=== PATIENT | female | born 1975 | race Two or more races ===

== ENCOUNTER 2017-01-24 08:15 | Emergency (ER) | payer OTHER ==
[~2017-01-24] VITALS: Ht 165.1 cm; Wt 71.2 kg
[2017-01-24 08:21] VITALS: BP 177/87; PULSE 75; RESP 16; TEMP 98.2; O2SAT 99
--- NOTE | 2017-01-24 08:25 | NUR ---
ambulated to bed 8
--- NOTE | 2017-01-24 08:41 | NUR ---
ER at bedside examining patient.
--- NOTE | 2017-01-24 08:41 | NUR ---
c/o elevated blood pressure,vomiting,headache since this morning, awake,alert oriented x4,no neuro deficit noted.
[2017-01-24] MEDS ORDERED: PROCHLORPERAZINE EDISYLATE 10 MG/2 ML VIAL IVP ONE (08:45)
[2017-01-24] MEDS ORDERED: ONDANSETRON HCL 4 MG/2 ML VIAL IVP ONE (08:45)
[2017-01-24] MEDS ORDERED: KETOROLAC TROMETHAMINE 30 MG VIAL IVP ONE (08:45)
[2017-01-24] MEDS ORDERED: cloNIDine HCL 0.1 MG TABLET PO ONE (08:45)
--- NOTE | 2017-01-24 08:45 | NUR ---
# 20 gauge angiocath placed to RAC. Use of asceptic technique. Opsite placed over site. Blood return noted. Flushed with 10 cc of normal saline. No evidence of infiltration noted. Patient tolerated well.
[2017-01-24 08:50] LABS: BILIRUBIN,URINE NEGATIVE (NEGATIVE); CLARITY/URINE CLEAR (CLEAR); COLOR,URINE YELLOW (YELLOW); GLUCOSE,URINE TRACE (NEGATIVE); KETONES,URINE NEGATIVE (NEGATIVE); LEUKOCYTE ESTERASE ,URINE NEGATIVE (NEGATIVE); NITRITE, URINE NEGATIVE (NEGATIVE); PROTEIN URINE 3+ (NEGATIVE); UROBILINOGEN,URINE 0.2 (0.2-1.0)
[2017-01-24 08:56] LABS: BLOOD, URINE TRACE (NEGATIVE)
[2017-01-24 08:58] LABS: BACTERIA,URINE FEW /HPF (None Seen); MUCUS,URINE None Seen /LPF (None Seen); RBC,URINE 0-3 /HPF (0-3); WBC,URINE 0-3 /HPF (0-3)
[2017-01-24 09:41] LABS: BASOPHILS # (AUTO) 0.1 K/uL (0.0-0.2); BASOPHILS % (AUTO) 0.4 % (0.0-2.0); EOSINOPHILS # (AUTO) 0.1 K/uL (0.0-0.4); EOSINOPHILS % (AUTO) 0.9 % (0.0-4.0); HEMATOCRIT 32.7 % (36-48); HEMOGLOBIN 10.6 g/dL (12.0-16.0); LYMPHOCYTES # (AUTO) 1.8 K/uL (1.0-5.5); LYMPHOCYTES % (AUTO) 13.7 % (20.5-51.5); MEAN CORPUSCULAR HEMOGLOBIN 21 pg (27-31); MEAN CORPUSCULAR HGB CONC 32 % (32-36); MEAN CORPUSCULAR VOLUME 65 fL (79.0-98.0); MONOCYTES # (AUTO) 0.7 K/uL (0.0-1.0); MONOCYTES % (AUTO) 5.5 % (1.7-9.3); NEUTROPHILS # (AUTO) 10.7 K/uL (1.8-7.7); NEUTROPHILS % (AUTO) 79.5 % (40.0-70.0); PLATELET COUNT (AUTO) 230 K/uL (130-430); RED BLOOD CELL COUNT(AUTO) 5.02 MIL/uL (4.2-6.2); RED CELL DISTRIBUTION WIDTH 17.5 % (9.0-15.0); WHITE BLOOD COUNT (AUTO) 13.4 K/uL (4.8-10.8)
[2017-01-24 10:24] LABS: ANION GAP 10 (5-15); CALCIUM 8.4 mg/dL (8.4-11.0); CHLORIDE 100 mmol/L (98-107); GLUCOSE 214 mg/dL (70-99); SODIUM SERUM 138 mmol/L (136-145); UREA NITROGEN, BLOOD 17 mg/dL (8-21)
[2017-01-24 10:29] LABS: GFR AFRICAN AMERICAN 79 mL/min (>90)
[2017-01-24 10:30] LABS: POTASSIUM 2.9 mmol/L (3.5-5.1)
[2017-01-24 10:37] LABS: ALANINE AMINOTRANSFERASE 19 U/L (12-78); ALBUMIN 2.9 g/dL (3.4-4.8); ASPARTATE AMINOTRANSFERASE 15 U/L (10-37); TOTAL BILIRUBIN 0.4 mg/dL (0.0-1.0); TOTAL PROTEIN, SERUM 6.8 g/dL (6.4-8.3)
[2017-01-24] MEDS ORDERED: POTASSIUM CHLORIDE 20 MEQ TAB.PRT.SR PO ONE (10:45)
--- NOTE | 2017-01-24 11:45 | NUR ---
Patient given written and verbal discharge instructions and verbalizes understanding. ER MD discussed with patient the results and treatment provided. Given copies of tests performed in ER. Patient in stable condition. ID arm band removed. IV catheter removed intact and dressing applied, no active bleeding. Rx of AUGMENTIN,CLONIDINE given. Patient educated on pain management and to follow up with PMD. Pain Scale 0 . Opportunity for questions provided and answered.
[2017-01-24 11:46] VITALS: BP 158/66; PULSE 67; RESP 17; TEMP 98; O2SAT 99
== END 2017-01-24 11:46 | disposition home or self-care (01) ==
LOC: SED 08:15
DX: I16.0 Hypertensive urgency (principal); I10 Essential (primary) hypertension
CPT/HCPCS: 36415; 70450; 80053; 81000; 81025; 83880; 84484; 85025; 93005; 96374; 96375; 99291; J0780; J1885; J2405

== ENCOUNTER 2019-12-07 20:38 | Inpatient (IN) | payer OTHER ==
[~2019-12-07] VITALS: Ht 165.1 cm; Wt 67.6 kg
[2019-12-07 20:40] VITALS: BP_SYST 169
--- NOTE | 2019-12-07 20:40 | NUR ---
Patient triaged and placed in waiting room. VSS and patient appears in no acute distress at this time. Accompanied by , awaiting available bed, and MD notified of need for MSE.
--- NOTE | 2019-12-07 23:01 | NUR ---
Patient to ER bed 3 to gown for evaluation. Side rails up. Report given to Ernestine CHU.
[2019-12-07] MEDS ORDERED: ONDANSETRON HCL 4 MG/2 ML VIAL IVP ONE (23:30)
[2019-12-07] MEDS ORDERED: NACL 0.9% 1,000 ML IV ONE (23:30)
--- NOTE | 2019-12-07 23:30 | NUR ---
Pt came itnot he ED for 2 days of vomiting. Reports that pt has SOB and generalized weakness. States she was seen by her PCP on 11/03/19. Her sodium was 122, glucose 91, BUN 30 adn crearinine 1.56. Denies chest pain. No other complaints/injuries noted. Will cont. to monitor.
--- NOTE | 2019-12-07 23:35 | NUR ---
ER at bedside examining patient.
[2019-12-08] MEDS ORDERED: ONDANSETRON HCL 4 MG/2 ML VIAL IVP ONE
[2019-12-08] MEDS ORDERED: NACL 0.9% 1,000 ML IV ONE
[2019-12-08 00:22] LABS: BASOPHILS # (AUTO) 0.1 K/uL (0.0-0.2); BASOPHILS % (AUTO) 0.5 % (0.0-2.0); EOSINOPHILS % (AUTO) 0.1 % (0.0-4.0); HEMATOCRIT 34.7 % (36-48); HEMOGLOBIN 11.5 g/dL (12.0-16.0); LYMPHOCYTES # (AUTO) 1.2 K/uL (1.0-5.5); LYMPHOCYTES % (AUTO) 9.6 % (20.5-51.5); MEAN CORPUSCULAR HEMOGLOBIN 23 pg (27-31); MEAN CORPUSCULAR HGB CONC 33 % (32-36); MEAN CORPUSCULAR VOLUME 69 fL (79.0-98.0); MONOCYTES # (AUTO) 0.8 K/uL (0.0-1.0); MONOCYTES % (AUTO) 6.8 % (1.7-9.3); NEUTROPHILS # (AUTO) 10.1 K/uL (1.8-7.7); PLATELET COUNT (AUTO) 362 K/uL (130-430); RED BLOOD CELL COUNT(AUTO) 5.05 MIL/uL (4.2-6.2); RED CELL DISTRIBUTION WIDTH 17.1 % (9.0-15.0); WHITE BLOOD COUNT (AUTO) 12.2 K/uL (4.8-10.8)
[2019-12-08 00:28] LABS: CALCIUM 10.1 mg/dL (8.4-11.0); CREATININE 1.47 mg/dL (0.55-1.30); POTASSIUM 3.7 mmol/L (3.5-5.1)
[2019-12-08 00:41] LABS: TOTAL BILIRUBIN 0.7 mg/dL (0.0-1.0)
[2019-12-08] MEDS ORDERED: PRAZ5CAP2 PO (01:15)
[2019-12-08] MEDS ORDERED: HUM10VIA SQ (01:15)
[2019-12-08] MEDS ORDERED: VALS320T2 PO (01:15)
[2019-12-08] MEDS ORDERED: METO25TA3 PO (01:15)
[2019-12-08] MEDS ORDERED: PRAZ1POW3 MC (01:15)
--- NOTE | 2019-12-08 01:16 | NUR ---
Medication reconciliation completed with information provided by patient. Any prior medication reconciliation on file was reviewed and corrected.
[2019-12-08 02:25] LABS: BILIRUBIN,URINE NEGATIVE (NEGATIVE); CLARITY/URINE CLEAR (CLEAR); COLOR,URINE YELLOW (YELLOW); GLUCOSE,URINE NEGATIVE (NEGATIVE); KETONES,URINE NEGATIVE (NEGATIVE); LEUKOCYTE ESTERASE ,URINE NEGATIVE (NEGATIVE); NITRITE, URINE NEGATIVE (NEGATIVE); PROTEIN URINE 2+ (NEGATIVE); UROBILINOGEN,URINE 0.2 (0.2-1.0)
[2019-12-08 02:30] LABS: BLOOD, URINE TRACE (NEGATIVE)
--- NOTE | 2019-12-08 02:30 | NUR ---
Pt ambulated with steady gait to bathroom. No signs of acute distress. Will cont.to monitor.
[2019-12-08 02:35] LABS: BACTERIA,URINE FEW /HPF (None Seen); WBC,URINE 0-3 /HPF (0-3)
--- NOTE | 2019-12-08 03:00 | NUR ---
Pt resting comfortably in bed, no signs of acute distress. Will cont. to monitor.
--- NOTE | 2019-12-08 04:00 | NUR ---
Patient will be admitted to care of Dr. White. Admitted to Tele unit. Will go to room 135. Belongings list completed. Complete and up to date summary report printed. SBAR report to be given at bedside with opportunity for questions.
[2019-12-08] MEDS ORDERED: [UNRECOGNIZED DRUG - OTHER] SQ (04:49)
--- NOTE | 2019-12-08 05:00 | NUR ---
Pt resting comfortably in bed, no signs of acute distress. Will cont. to monitor.
[2019-12-08] MEDS ORDERED: INSULIN LISPRO SLIDING SCALE 100 UNITS/ML VIAL (humaLOG) SUBCUT PRN (05:15)
[2019-12-08 06:01] VITALS: BP_SYST 143
--- NOTE | 2019-12-08 06:01 | NUR ---
Transfer to Tele via ACLS protocol. Licensed nurse present. IV present no signs or symptoms of infiltration.d.
--- NOTE | 2019-12-08 06:01 | NUR ---
ADMISSION NOTE Received patient from ER via gurney. Patient admitted with diagnosis of . Patient is awake, alert, oriented X4 . Patient oriented to hospital room, call light, toileting, pain management and safety-teach back done. Patient informed that their room number is 129A. Personal belongings checked and Belongings List documented. Call light within reach.
--- NOTE | 2019-12-08 06:50 | NUR ---
NOTES PATIENT RESTING COMFORTABLY IN BED, VITALS STABLE, DENIES ANY PAIN AND DISCOMFORT AT THIS TIME. ALL NEEDS ATTENDED TO. SAFETY MEASURES MAINTAINED. CALL LIGHT PLACED WITHIN REACH.
--- NOTE | 2019-12-08 07:30 | NUR ---
Received bedside report from Lolis Mcelroy. patient is alert, awake, oriented, denies abdominal pain and vomiting, stated " my throat is sore and i don't have appetite. informed about the poc and verbalized understanding. ivf started. left ac#20 with good blood return and flush with no problem. call light within reach. spouse at bedside.
[2019-12-08] MEDS: NACL 0.9% 1,000 ML IV SCH ×2 (07:45→22:04)
[2019-12-08 08:14] VITALS: BP_SYST 151
--- NOTE | 2019-12-08 10:00 | NUR ---
CALLED CONSULT DR. HENNING ( [place]) S/W [facility]LS[facility] ANSWERING SERVICE.
[2019-12-08] MEDS ORDERED: VALSARTAN 80 MG TABLET (DIOVAN) PO ONE (11:00)
--- NOTE | 2019-12-08 11:00 | NUR ---
informed Md White about patient home medication not yet reconcile, stated will place order. will monitor.
[2019-12-08] MEDS ORDERED: ACETAMINOPHEN 325 MG TABLET PO PRN (11:15)
[2019-12-08] MEDS ORDERED: INSULIN NPH/REGULAR 70-30, 100 UNITS/ML, 10 ML VIAL SUBCUT SCH (11:15)
[2019-12-08 11:20] LABS: CALCIUM 8.9 mg/dL (8.4-11.0); CREATININE 1.43 mg/dL (0.55-1.30); POTASSIUM 3.7 mmol/L (3.5-5.1)
[2019-12-08 11:26] LABS: ALBUMIN 3.1 g/dL (3.4-4.8); TOTAL BILIRUBIN 0.5 mg/dL (0.0-1.0)
[2019-12-08] MEDS ORDERED: LOSARTAN POTASSIUM 50 MG TABLET (COZAAR) PO ONE (11:30)
[2019-12-08] MEDS: METOPROLOL SUCCINATE 25 MG TAB.SR.24H (TOPROL XL) PO SCH (11:30)
[2019-12-08 12:00] VITALS: BP_SYST 141
[2019-12-08] MEDS: INSULIN LISPRO SLIDING SCALE 100 UNITS/ML VIAL (humaLOG) SUBCUT PRN ×3 (12:30→22:10)
--- NOTE | 2019-12-08 15:53 | NUR ---
patient verbalized Dr. Van made rounds. new orders noted to increase ivf to 100ml/hr
[2019-12-08 15:55] VITALS: BP_SYST 150
--- NOTE | 2019-12-08 18:42 | NUR ---
all needs mets. no s/s of distress,vital sign stable, afebrile. ivf infusing well site patent. no other concerned noted.
--- NOTE | 2019-12-08 19:30 | NUR ---
INITIAL NOTE: RECEIVED REPORT FROM DAY SHIFT RN. PATIENT ALERT AND ORIENTED X 4. PATIENT VIKI ANY PAIN OR SOB. PATIENT WITH SIGNIFICANT OTHER SITTING AT BEDSIDE. PATIENT HAS AN IV TO THE LEFT AC 20G INTACT AND PATENT CURRENTLY HAS FLUIDS RUNNING. NO SIGNS OF INFILTRATION OR PHLEBITIS. PT TOLERATING WELL. BED IN LOWEST POSITION. CALL LIGHT WITHIN REACH. WILL CONTINUE TO MONITOR AND CARRY OUT PLAN OF CARE.
[2019-12-08 20:30] VITALS: BP_SYST 158
[2019-12-08] MEDS: cloNIDine HCL 0.1 MG TABLET PO PRN (22:02)
--- NOTE | 2019-12-08 22:30 | NUR ---
MED PASS: PATIENT TOOK ALL SCHEDULED MEDS. PATIENT TOLERATED WELL. PT FS RESULT 220. INSULIN CONVERAGE. PRN MEDICATION CATAPRES GIVEN FOR HIGH BLOOD PRESSURE. NO SIGN OF DISTRESS OR PAIN. WILL CONTINUE TO CARRY OUT PLAN OF CARE.
[2019-12-09 00:37] VITALS: BP_SYST 153
--- NOTE | 2019-12-09 01:30 | NUR ---
ROUNDS: Patient asleep. no signs of pain or respiratory distress. iv fluids infusing well. bed in lowest position. call light within reach. will continue to monitor and carry out plan of care.
--- NOTE | 2019-12-09 04:30 | NUR ---
ROUNDS: PATIENT ASLEEP. NO SIGNS OF RESPIRATORY DISTRESS OR PAIN. IV INFUSING TO THE LEFT AC. INTACT AND PATENT. BED IN LOWEST POSITION. CALL LIGHT WITHIN REACH. WILL CONTINUE TO MONITOR AND CARRY OUT PLAN OF CARE.
[2019-12-09] MEDS: cloNIDine HCL 0.1 MG TABLET PO PRN ×2 (05:39→21:08)
[2019-12-09] MEDS: INSULIN LISPRO SLIDING SCALE 100 UNITS/ML VIAL (humaLOG) SUBCUT PRN ×3 (06:10→21:18)
[2019-12-09] MEDS: NACL 0.9% 1,000 ML IV SCH (06:11)
--- NOTE | 2019-12-09 06:15 | NUR ---
PATIENT REMAINED CALM AND COMFORTABLE THROUGHOUT THE NIGHT. PATIENT DENIES PAIN OR SOB. HER LAST RECENT BLOOD PRESSURE READING WAS 169/72, PATIENT MEDICATED WITH CLONIDINE 0.1MG @ 0539. PATIENT FINGER STICK READING 194, INSULIN COVERAGE. IV TO THE LEFT AC INFUSING WITH FLUIDS. BED IN LOWEST POSITION. CALL LIGHT WITHIN REACH. WILL CONTINUE TO MONITOR AND CARRY OUT PLAN OF CARE.
[2019-12-09] MEDS ORDERED: INSULIN NPH/REGULAR 70-30, 100 UNITS/ML, 10 ML VIAL SUBCUT SCH (07:00)
[2019-12-09 07:06] LABS: BASOPHILS # (AUTO) 0.1 K/uL (0.0-0.2); BASOPHILS % (AUTO) 0.7 % (0.0-2.0); EOSINOPHILS # (AUTO) 0.1 K/uL (0.0-0.4); EOSINOPHILS % (AUTO) 0.7 % (0.0-4.0); HEMATOCRIT 30.6 % (36-48); HEMOGLOBIN 10.1 g/dL (12.0-16.0); MEAN CORPUSCULAR HEMOGLOBIN 23 pg (27-31); MEAN CORPUSCULAR HGB CONC 33 % (32-36); MEAN CORPUSCULAR VOLUME 71 fL (79.0-98.0); MONOCYTES # (AUTO) 0.9 K/uL (0.0-1.0); MONOCYTES % (AUTO) 8.9 % (1.7-9.3); NEUTROPHILS # (AUTO) 7.1 K/uL (1.8-7.7); NEUTROPHILS % (AUTO) 69.7 % (40.0-70.0); PLATELET COUNT (AUTO) 299 K/uL (130-430); RED BLOOD CELL COUNT(AUTO) 4.32 MIL/uL (4.2-6.2); WHITE BLOOD COUNT (AUTO) 10.1 K/uL (4.8-10.8)
[2019-12-09 07:30] LABS: ALBUMIN 3.1 g/dL (3.4-4.8); CALCIUM 8.5 mg/dL (8.4-11.0); CREATININE 1.33 mg/dL (0.55-1.30); PHOSPHORUS 4.1 mg/dL (2.7-4.5); POTASSIUM 3.7 mmol/L (3.5-5.1); THYROID STIMULATING HORMONE 2.48 uIu/mL (0.36-3.74); TOTAL BILIRUBIN 0.2 mg/dL (0.0-1.0)
[2019-12-09 08:00] VITALS: BP_SYST 179
--- NOTE | 2019-12-09 08:00 | NUR ---
initial notes rec patient awake alert with at bedside. ivf infusing well on the l ac. no infiltration noted. resp easy and unlabored. no sob noted. bed to the lowest position and side rails up and locked. call light within reached and knows when to call for assistance. denies pain. will continue to monitor patient.
[2019-12-09 08:09] LABS: RED CELL DISTRIBUTION WIDTH 17.5 % (9.0-15.0)
[2019-12-09] MEDS: METOPROLOL SUCCINATE 25 MG TAB.SR.24H (TOPROL XL) PO SCH (08:55)
[2019-12-09] MEDS: FAMOTIDINE 20 MG TABLET PO SCH (08:55)
[2019-12-09] MEDS: LOSARTAN POTASSIUM 50 MG TABLET (COZAAR) PO SCH (08:56)
--- NOTE | 2019-12-09 10:00 | NUR ---
rounds due meds given and luis well. at bedside and assisting patient with adl. denies pain .
[2019-12-09] MEDS: hydrALAZINE HCL 25 MG TABLET PO SCH ×3 (12:09→23:24)
--- NOTE | 2019-12-09 12:30 | NUR ---
rounds no hypo hyperglycemic reaction noted. family at bedside.
[2019-12-09 16:00] VITALS: BP_SYST 187
--- NOTE | 2019-12-09 16:29 | NUR ---
rounds seen by dr gonzalez at bedside and with orders. not ready to go home since bp still elevated. stated will stay again tonight.
[2019-12-09] MEDS: INSULIN NPH/REGULAR 70-30, 100 UNITS/ML, 10 ML VIAL SUBCUT SCH (17:56)
--- NOTE | 2019-12-09 18:50 | NUR ---
closing notes resting comfortably. no osb noted. bed to the lowest positon and side rails up and locked. call light within reached. at bedside.
--- NOTE | 2019-12-09 19:30 | NUR ---
Opening notes Received report. Patient is resting in bed, no signs of distress noted. Breathing even and unlabored. IV patent and intact, no signs of infiltration noted. No needs at this time. Call light with the patient. Safety precautions in place.
[2019-12-09 20:00] VITALS: BP_SYST 176
--- NOTE | 2019-12-09 21:15 | NUR ---
Medications Accucheck 241. Insulin given per sliding scale. PRN BP medication given for BP 176/71 HR 61. Educated the action and side effects of medications. Patient verbalized understanding and tolerated well. Patient and patient belongings moved to room 125B. No other needs. Call light with the patient. Safety precautions in place.
[2019-12-09 22:25] VITALS: BP_SYST 179
--- NOTE | 2019-12-09 22:37 | NUR ---
paged paged for Dr White, dialed . s/w Michelle.
--- NOTE | 2019-12-09 22:40 | NUR ---
Spoke to Dr. White informed patient on current BP of 179/71 HR 53 and latest blood sugar 241. New orders received from
--- NOTE | 2019-12-09 23:30 | NUR ---
Resting Patient resting in bed. No signs of distress noted. Breathing even and unlabored. Scheduled medication given. Educated the action and side effects of medication. Patient tolerated well and verbalized understanding. No other needs. call light with the patient. Safety precautions in place.
--- NOTE | 2019-12-10 02:00 | NUR ---
Sleeping Patient sleeping. No signs of distress noted. Breathing even and unlabored. No needs. Call light with the patient. Safety precautions in place.
--- NOTE | 2019-12-10 04:30 | NUR ---
Sleeping No signs of distress noted. Breathing even and unlabored. No needs at this time. Call light with the patient. Safety precautions in place.
[2019-12-10] MEDS ORDERED: hydrALAZINE HCL 25 MG TABLET PO SCH (06:00)
[2019-12-10] MEDS: INSULIN NPH/REGULAR 70-30, 100 UNITS/ML, 10 ML VIAL SUBCUT SCH (06:33)
--- NOTE | 2019-12-10 06:50 | NUR ---
Closing notes Patient resting in bed. No signs of distress noted. Breathing even and unlabored. IV patent and intact, no signs of infiltration noted. BP this AM 133/63 HR 53. Accucheck 116. All needs met throughout the shift. Call light with the patient. Safety precautions in place. Will endorse care to day shift RN.
[2019-12-10 06:55] LABS: CALCIUM 8.7 mg/dL (8.4-11.0); CREATININE 1.37 mg/dL (0.55-1.30)
[2019-12-10 08:00] VITALS: BP_SYST 147
--- NOTE | 2019-12-10 08:00 | NUR ---
initial notes rec patient awake hob slightly elevated. ivl in placed. resp easy and unlabored. no sob noted. bd to th lowest position and side rails up and locked. call light within reached and knows when to call for assistance. will continue to monitor patient.
[2019-12-10] MEDS: METOPROLOL SUCCINATE 25 MG TAB.SR.24H (TOPROL XL) PO SCH (09:44)
[2019-12-10] MEDS: FAMOTIDINE 20 MG TABLET PO SCH (09:44)
[2019-12-10] MEDS: LOSARTAN POTASSIUM 50 MG TABLET (COZAAR) PO SCH (09:46)
--- NOTE | 2019-12-10 11:00 | NUR ---
rounds due meds were given and luis well. seen by dr gonzalez and with order to go home.
[2019-12-10 11:41] VITALS: BP_SYST 147
--- NOTE | 2019-12-10 12:30 | NUR ---
closing notes pt was discahrged. exit care was given. no osb noted. stated will have an appointment with dr gonzalez and dr gonzalez and dr butt. discussed with patient re take home prescription and med rec. escorted out with the [facility] .ambulated and refused the wheelchair. no sob noted. stable and needs attended.
== END 2019-12-10 12:30 | disposition home or self-care (01) | DRG 641 ==
LOC: SED 20:38 → STU 12-08 04:00
PROVIDERS: ADMIT Internal Medicine; ATTEND Internal Medicine
DX: E87.1 Hypo-osmolality and hyponatremia (principal); F32.9 Major depressive disorder, single episode, unspecified; E11.22 Type 2 diabetes mellitus with diabetic chronic kidney disease; I12.9 Hypertensive chronic kidney disease with stage 1 through stage 4 chronic kidney disease, or unspecified chronic kidney disease; N18.9 Chronic kidney disease, unspecified; Z79.899 Other long term (current) drug therapy
CPT/HCPCS: 36415; 80048; 80053; 81000-TC; 82533; 82962; 83036; 83690-TC; 83735-TC; 84100-TC; 84443-TC; 84703; 85025; 96361; 96374; 99285; G0378; J1815; J2405; J7030

== ENCOUNTER 2020-07-14 18:21 | Inpatient (IN) | payer OTHER ==
[~2020-07-14] VITALS: Ht 165.1 cm; Wt 74.4 kg
[~2020-07-14 18:21] MED LIST: HUM10VIA SQ; METO25TA3 PO; [UNRECOGNIZED DRUG - OTHER] SQ
[2020-07-14 18:30] VITALS: BP_SYST 201
--- NOTE | 2020-07-14 18:30 | NUR ---
Patient to ER bed 3 to gown for evaluation. Side rails up.
--- NOTE | 2020-07-14 18:40 | NUR ---
PIPER Herrmann at bedside examining patient.
--- NOTE | 2020-07-14 19:16 | NUR ---
Urine sample sent to lab as per MD order.
--- NOTE | 2020-07-14 19:42 | NUR ---
Care of patient endorsed to KIMBERLEY Burton. Pt currently resting in bed, no distress noted.
--- NOTE | 2020-07-14 19:45 | NUR ---
Patient ambulated to bedside accompanied by . Patient complaining of pressure and tightness to bilateral flank pain with mild abdominal distention x 2-3 days and worse when she breaths. Patient denies any pain at this time. Also complaining of constiptation x 2 days. Denies any nausea, vomiting or diarrhea, chest pain, shortness of breath. Pain 5/10. History of DM, HTN, and CKD. NKDA.
[2020-07-14 19:50] LABS: BASOPHILS # (AUTO) 0.1 K/uL (0.0-0.2); BASOPHILS % (AUTO) 0.6 % (0.0-2.0); EOSINOPHILS # (AUTO) 0.1 K/uL (0.0-0.4); EOSINOPHILS % (AUTO) 0.6 % (0.0-4.0); HEMATOCRIT 30.7 % (36-48); HEMOGLOBIN 9.6 g/dL (12.0-16.0); LYMPHOCYTES # (AUTO) 1.2 K/uL (1.0-5.5); LYMPHOCYTES % (AUTO) 6.1 % (20.5-51.5); MEAN CORPUSCULAR HEMOGLOBIN 23 pg (27-31); MEAN CORPUSCULAR HGB CONC 31 % (32-36); MEAN CORPUSCULAR VOLUME 73 fL (79.0-98.0); MONOCYTES # (AUTO) 0.9 K/uL (0.0-1.0); MONOCYTES % (AUTO) 4.5 % (1.7-9.3); NEUTROPHILS # (AUTO) 16.8 K/uL (1.8-7.7); NEUTROPHILS % (AUTO) 88.2 % (40.0-70.0); PLATELET COUNT (AUTO) 285 K/uL (130-430); RED BLOOD CELL COUNT(AUTO) 4.21 MIL/uL (4.2-6.2); RED CELL DISTRIBUTION WIDTH 18.1 % (9.0-15.0); WHITE BLOOD COUNT (AUTO) 19.1 K/uL (4.8-10.8)
[2020-07-14 20:03] LABS: CREATININE 3.17 mg/dL (0.55-1.30); POTASSIUM 4.4 mmol/L (3.5-5.1)
[2020-07-14 20:09] LABS: ALBUMIN 2.4 g/dL (3.4-4.8); TOTAL BILIRUBIN 0.3 mg/dL (0.0-1.0)
--- NOTE | 2020-07-14 20:11 | NUR ---
Patient off unit to CT scan with Jim. Fina
[2020-07-14] MEDS ORDERED: cloNIDine HCL 0.1 MG TABLET PO ONE (20:15)
--- NOTE | 2020-07-14 20:18 | NUR ---
Patent returned from CT scan.
[2020-07-14 20:33] LABS: BILIRUBIN,URINE NEGATIVE (NEGATIVE); BLOOD, URINE 1+ (NEGATIVE); CLARITY/URINE CLEAR (CLEAR); COLOR,URINE YELLOW (YELLOW); GLUCOSE,URINE 1+ (NEGATIVE); KETONES,URINE NEGATIVE (NEGATIVE); LEUKOCYTE ESTERASE ,URINE NEGATIVE (NEGATIVE); NITRITE, URINE NEGATIVE (NEGATIVE); PROTEIN URINE 3+ (NEGATIVE); UROBILINOGEN,URINE 0.2 (0.2-1.0)
--- NOTE | 2020-07-14 20:39 | NUR ---
PAtient's BP WNL. notified. Will cancel Clonidine in eMar.
[2020-07-14 20:43] LABS: BACTERIA,URINE FEW /HPF (None Seen); MUCUS,URINE None Seen /LPF (None Seen); RBC,URINE NONE SEEN /HPF (0-3); WBC,URINE 0-3 /HPF (0-3)
[2020-07-14] MEDS ORDERED: NS 500 ML IV ONE (22:00)
[2020-07-14] MEDS ORDERED: cefTRIAXone 1 GM in D5W 50 ML IV ONE (22:00)
--- NOTE | 2020-07-14 22:09 | NUR ---
Patient's code status is full code paperwork completed and placed in chart.
--- NOTE | 2020-07-14 22:10 | NUR ---
# 20 gauge angiocath placed to rac. Use of asceptic technique. Opsite placed over site. Blood return noted. Blood for lab drawn from site. Flushed with 10 cc of normal saline. No evidence of infiltration noted. Patient tolerated well.
[2020-07-14] MEDS ORDERED: NACL 0.9% 1,000 ML IV ONE (22:30)
[2020-07-14] MEDS ORDERED: [UNRECOGNIZED DRUG - CODE] PO ×2 (22:31→22:32)
[2020-07-14] MEDS ORDERED: CAT.1 PO (22:31)
[2020-07-14] MEDS ORDERED: NEBI5TAB3 PO (22:34)
[2020-07-14] MEDS ORDERED: [UNRECOGNIZED DRUG - OTHER] PO (22:35)
--- NOTE | 2020-07-14 22:36 | NUR ---
Medication reconciliation completed with information provided by Patient's medication bottles. Any prior medication reconciliation on file was reviewed and corrected.
[2020-07-14] MEDS ORDERED: NACL 0.9% 1,000 ML IV SCH (22:38)
[2020-07-14] MEDS ORDERED: INSULIN ASPART 100 UNITS/ML, 10 ML VIAL (NovoLOG) SUBCUT PRN (22:45)
[2020-07-14] MEDS ORDERED: hydrALAZINE HCL 20 MG/ML VIAL IVP ONE (22:45)
--- NOTE | 2020-07-14 23:00 | NUR ---
resting comfortably no complaints
[2020-07-14] MEDS ORDERED: cefTRIAXone 1 GM VIAL ONE (23:21)
[2020-07-14] MEDS ORDERED: INSULIN LISPRO SLIDING SCALE 100 UNITS/ML VIAL (humaLOG) SUBCUT PRN (23:30)
--- NOTE | 2020-07-14 23:35 | NUR ---
Patient will be admitted to care of Dr. White. Admitted to Med Surg unit. Will go to room 108 C. Complete and up to date summary report printed. SBAR report to be given at bedside with opportunity for questions.
--- NOTE | 2020-07-14 23:43 | NUR ---
patient complaining of difficulty taking deep breath. Reports some chest discomfort. Addendum: 07/14/20 at 2344 by [email or web address] md diez
--- NOTE | 2020-07-14 23:51 | NUR ---
Spoke to Dr. White. Will change admission to Telemetry. Patient off unit to Radiology for Chest xray. Addendum: 07/14/20 at 2352 by SDEDCJM Charge Nurse Jaspreet RN notified
--- NOTE | 2020-07-14 23:52 | NUR ---
EKG performed at by KIMBERLEY Velasquez. Physician given copy of EKG for review.
[2020-07-15] MEDS ORDERED: FUROSEMIDE 20 MG/2 ML VIAL IVP ONE
--- NOTE | 2020-07-15 00:28 | NUR ---
Patient resting quietly at bedside. BP 176/77, HR 78 ,96% on 2L NC Resp 22. awaiting Troponin results prior to transfer to Telemetry
--- NOTE | 2020-07-15 00:46 | NUR ---
Transfer to Telemetry via ACLS protocol. Licensed nurse present. IV present no signs or symptoms of infiltration.
--- NOTE | 2020-07-15 01:28 | NUR ---
ADMIT NOTE Received pt from ER to the floor with a diagnosis of acute kidney injury, ascites, uncontrolled dm. Admission process initiated. patient oriented to pain management, safety and call light-teach back done.
[2020-07-15 01:42] VITALS: BP_SYST 186
--- NOTE | 2020-07-15 01:50 | NUR ---
INITIAL NOTE AT INITIAL ASSESSMENT, PATIENT IS RESTING IN BED, STABLE, NO SIGNS OF RESPIRATORY DISTRESS. PATIENT VERBALIZES MILD ABDOMINAL PAIN, PRN MEDIATION FOR MILD PAIN WILL BE GIVEN AT THIS TIME. PLAN OF CARE FOR THE EVENING IS COMMUNICATED WITH THE PATIENT. BED IS LOCKED, ALARMED, AND AT THE LOWEST LEVEL. FALL, SAFETY, RESPIRATORY, AND ASPIRATION PRECAUTIONS WILL BE TAKEN THROUGHOUT THE SHIFT.
[2020-07-15] MEDS: hydrALAZINE HCL 20 MG/ML VIAL IVP SCH ×2 (01:53→06:07)
[2020-07-15] MEDS ORDERED: ZOLPIDEM TARTRATE 5 MG TABLET PO ONE ×2 (02:15→21:00)
--- NOTE | 2020-07-15 02:15 | NUR ---
COMMUNICATION W/ DR. YOANNA LENZ IS PAGED AT THIS TIME, IT WAS COMMUNICATED THAT PATIENT VERBALIZED SHE FEELS ANXIOUS AND SCARED AT THE HOSPITAL WITHOUT HER FAMILY. DR. LENZ GAVE ORDERS FOR ONE TIME DOSE AMBIEN 5 MG PO, SHE HAS VERBALIZED THAT IT IS OK TO GIVE NOW DESPITE BEING PAST 0200 AM.
[2020-07-15] MEDS: ACETAMINOPHEN 650 MG/20.3 ML UDC PO PRN ×2 (02:19→15:15)
[2020-07-15] MEDS: cloNIDine HCL 0.1 MG TABLET PO PRN ×2 (02:27→08:28)
--- NOTE | 2020-07-15 03:05 | NUR ---
NOTE PATIENT IS RESTING COMFORTABLY IN BED, STABLE , NO SIGNS OF RESPIRATORY DISTRESS. CALL LIGHT IS WITHIN REACH. BED IS LOCKED, ALARMED, AND AT THE LOWEST LEVEL.
--- NOTE | 2020-07-15 05:05 | NUR ---
NOTE PATIENT IS SLEEPING, STABLE , NO SIGNS OF RESPIRATORY DISTRESS. CALL LIGHT IS WITHIN REACH. BED IS LOCKED, ALARMED, AND AT THE LOWEST LEVEL.
[2020-07-15 06:25] LABS: BASOPHILS # (AUTO) 0.1 K/uL (0.0-0.2); BASOPHILS % (AUTO) 0.5 % (0.0-2.0); EOSINOPHILS # (AUTO) 0.2 K/uL (0.0-0.4); HEMATOCRIT 28.1 % (36-48); HEMOGLOBIN 8.9 g/dL (12.0-16.0); LYMPHOCYTES # (AUTO) 2.1 K/uL (1.0-5.5); LYMPHOCYTES % (AUTO) 11.6 % (20.5-51.5); MEAN CORPUSCULAR HEMOGLOBIN 23 pg (27-31); MEAN CORPUSCULAR HGB CONC 32 % (32-36); MEAN CORPUSCULAR VOLUME 73 fL (79.0-98.0); MONOCYTES # (AUTO) 1.1 K/uL (0.0-1.0); NEUTROPHILS # (AUTO) 14.8 K/uL (1.8-7.7); NEUTROPHILS % (AUTO) 80.9 % (40.0-70.0); PLATELET COUNT (AUTO) 262 K/uL (130-430); RED BLOOD CELL COUNT(AUTO) 3.87 MIL/uL (4.2-6.2); RED CELL DISTRIBUTION WIDTH 17.9 % (9.0-15.0); WHITE BLOOD COUNT (AUTO) 18.2 K/uL (4.8-10.8)
[2020-07-15 06:31] LABS: ALBUMIN 1.9 g/dL (3.4-4.8); CALCIUM 7.6 mg/dL (8.4-11.0); CREATININE 3.17 mg/dL (0.55-1.30); POTASSIUM 3.5 mmol/L (3.5-5.1); TOTAL BILIRUBIN 0.3 mg/dL (0.0-1.0)
--- NOTE | 2020-07-15 06:50 | NUR ---
CLOSING NOTE PATIENT SLEPT WELL THROUGHOUT THE NIGHT. AT THIS TIME, SHE IS RESTING IN BED, STABLE, NO SIGNS OF RESPIRATORY DISTRESS. CALL LIGHT PLACED WITHIN REACH. BED IS LOCKED, ALARMED, AND AT THE LOWEST LEVEL. FALL, SAFETY, RESPIRATORY, AND ASPIRATION PRECAUTIONS HAVE BEEN TAKEN THROUGHOUT THE SHIFT. WILL CONTINUE TO MONITOR UNTIL SHIFT REPORT IS GIVEN AT BEDSIDE TO AM NURSE.
--- NOTE | 2020-07-15 07:40 | NUR ---
Opening Note received bedside SBAR report from mail handlers supervisor RN, patient resting in bed, respirations even and unlabored on room air, no acute distress noted, educated patient on use of call light and asked to call for assistance, patient verbalized understanding, call light in reach, educated patient on use of bed alarm for patient safety, patient verbalized understanding, patient refusing bed alarm, bed in low and locked position.
[2020-07-15] MEDS: FAMOTIDINE 20 MG TABLET PO SCH (08:02)
[2020-07-15 08:32] VITALS: BP_SYST 190
--- NOTE | 2020-07-15 08:44 | NUR ---
CONSULTATION PAGED/CALLED Reason for Consultation: [] GENE, CKD Person Who was Notified: [] KOLBY Consulting Physician: [] DR HENNING Extruder Operator Specialty: [] CHIEF LIBRARIAN MUSIC DEPARTMENT Ordering Physician: [] DR LENZ
[2020-07-15] MEDS: cloNIDine HCL 0.1 MG TABLET PO SCH ×3 (09:00→21:16)
[2020-07-15] MEDS ORDERED: NEBIVOLOL HCL Non-Formulary 5 MG TABLET PO SCH (09:00)
[2020-07-15] MEDS ORDERED: LEVOFLOXACIN 500 MG/D5W 100 ML IV ONE (09:00)
--- NOTE | 2020-07-15 09:35 | NUR ---
Ambulated to bathroom patient ambulated to bathroom, steady gait noted, voided x1, patient ambulated back to bed, patient resting in bed.
--- NOTE | 2020-07-15 10:12 | NUR ---
CONSULTATION PAGED/CALLED Reason for Consultation: [] SEPSIS, PYELONEPHRITIS Person Who was Notified: [] CHANDRIKA Consulting Physician: [] DR GEIGER Obstetrics Tech Specialty: [] ID Ordering Physician: [] DR LENZ
--- NOTE | 2020-07-15 10:20 | NUR ---
Physician Rounds Dr. White at bedside examining patient.
--- NOTE | 2020-07-15 11:47 | NUR ---
Physician Rounds Dr. Leonardo at bedside examining patient.
[2020-07-15] MEDS: NACL 0.9% 1,000 ML IV SCH ×2 (11:49→21:32)
[2020-07-15] MEDS: INSULIN LISPRO SLIDING SCALE 100 UNITS/ML VIAL (humaLOG) SUBCUT PRN ×3 (11:54→21:11)
[2020-07-15] MEDS ORDERED: hydrALAZINE HCL 25 MG TABLET PO PRN (12:45)
[2020-07-15] MEDS ORDERED: METOPROLOL TARTRATE 25 MG TABLET PO ONE (12:45)
--- NOTE | 2020-07-15 12:50 | NUR ---
RN Rounds patient sitting up in bed eating lunch, tolerating well, patient denies any nausea or vomiting.
[2020-07-15] MEDS ORDERED: ALBUTEROL SULFATE 0.083% 2.5 MG/3 ML VIAL.NEB INH PRN (13:00)
[2020-07-15] MEDS: AZITHROMYCIN 500 MG in NS 250 ML IV SCH (13:36)
[2020-07-15 13:51] VITALS: BP_SYST 195
[2020-07-15 14:28] VITALS: BP_SYST 195
--- NOTE | 2020-07-15 14:51 | NUR ---
Spoke with Physician spoke with Dr. White, informed him of patient complaint of nausea, informed her of patients most recent BP 200/86, HR 67, informed her of medications that have already been administered, new medication orders received, verified with read back.
[2020-07-15] MEDS ORDERED: hydrALAZINE HCL 25 MG TABLET PO ONE (15:00)
[2020-07-15] MEDS: ONDANSETRON HCL 4 MG/2 ML VIAL IVP PRN (15:07)
--- NOTE | 2020-07-15 16:23 | NUR ---
Ambulated to bathroom patient ambulated to bathroom, steady gait noted, voided x1, patient ambulated back to bed, no acute distress noted.
[2020-07-15 16:25] VITALS: BP_SYST 187
--- NOTE | 2020-07-15 16:26 | NUR ---
Blood Pressure patients current BP 187/76, spoke with pharmacist Edmond, informed him that one time dose of apresoline 50mg PO was given at 1507, per pharmacist it is too soon to give a dose of PRN apresoline, paged Dr. White for orders, awaiting call back.
--- NOTE | 2020-07-15 16:27 | NUR ---
YOANNA AMARAL DR, KAMINI AT [phone] SPOKE WITH SANTOSH.
--- NOTE | 2020-07-15 17:35 | NUR ---
Spoke with Physician spoke with Dr. White, informed her of latest BP 187/76 and medications that were given, informed her that per pharmacist it is too early to give PRN apresoline, per Dr. White she would like Dr. Van to be called for orders, spoke with Dr. Van, informed him of vital signs today and latest set of vital signs BP187/76, informed him of medications that have been given, per Dr. Van he will enter orders.
[2020-07-15] MEDS: INSULIN NPH/REGULAR 70-30, 100 UNITS/ML, 10 ML VIAL SUBCUT SCH (17:42)
--- NOTE | 2020-07-15 17:55 | NUR ---
Physician Rounds Dr. Van at bedside examining patient.
[2020-07-15] MEDS ORDERED: MINOXIDIL 10 MG TABLET (LONITEN) PO ONE (18:00)
[2020-07-15] MEDS ORDERED: MINOXIDIL 10 MG TABLET (LONITEN) PO SCH (18:00)
--- NOTE | 2020-07-15 19:15 | NUR ---
Closing Note bedside SBAR report given to receiving RN, patient resting in bed, respirations even and unlabored on room air, no acute distress noted, educated patient on use of call light and asked to call for assistance, patient verbalized understanding, call light in reach, educated patient on use of bed alarm for patient safety, patient verbalized understanding, patient refusing bed alarm, bed in low and locked position, care endorsed to narcotics agent RN.
--- NOTE | 2020-07-15 19:25 | NUR ---
Opening Note Received bedside SBAR report from day shift RN. Patient resting in bed, respirations even and unlabored on room air, no acute distress noted at this time. Denies pain. no s/s acute distress noted at this time. bed locked in lowest position,a alarm is on, call light is with patient. Will continue to monitor.
[2020-07-15 20:00] VITALS: BP_SYST 148
--- NOTE | 2020-07-15 21:00 | NUR ---
RN ROUNDS/ MEDICATION PASS: PATIENT IS WAKE,ALERT, AND ORIENTED X 4. BREATHING UNLABORED AND EVEN ON RA. NO S/S OF ACUTE DISTRESS NOTED AT THIS TIME. PATIENT GIVEN SCHEDULED MEDICATIONS. MEDICATIONS INDICATIONS AND POTENTIAL SIDE EFFECTS EXPLAINED TO PATIENT. PATIENT VERBALIZED UNDERSTANDING. BED IS LOCKED IN LOWEST POSITION. CALL LIGHT IS WITH PATIENT. WILL CONTINUE TO MONITOR.
[2020-07-15] MEDS: cefTRIAXone 1 GM in D5W 50 ML IV SCH (21:12)
[2020-07-15] MEDS: DOCUSATE SODIUM 250 MG CAPSULE PO SCH (21:14)
[2020-07-15] MEDS: METOPROLOL TARTRATE 25 MG TABLET PO SCH (21:14)
--- NOTE | 2020-07-16 | NUR ---
RN ROUNDS: PATIENT IS LAYING IN BED, CURRENTLY IN ASLEEP. BREATHING UNLABORED AND EVEN ON RA. IVF RUNNING ORDERED RATE. NO SIGN OF INFILTRATION. NO S/S OF ACUTE DISTRESS NOTED. BED IS LOCKED IN LOWEST POSITION. CALL LIGHT IS WITH PATIENT.WILL CONTINUE TO MONITOR.
[2020-07-16 00:17] VITALS: BP_SYST 146
--- NOTE | 2020-07-16 01:46 | NUR ---
RN ROUNDS: PATIENT IS IN BED, CURRENTLY SLEEPING. BREATHING UNLABORED AND EVEN ON RA. NO S/S ACUTE DISTRESS NOTED AT THIS MOMENT. IVF RUNNING ORDERED RATE. BED LOCKED IN LOWEST POSITION, CALL LIGHT IS WITH PATIENT. WILL CONTINUE TO MONITOR.
[2020-07-16] MEDS: ONDANSETRON HCL 4 MG/2 ML VIAL IVP PRN (01:58)
--- NOTE | 2020-07-16 02:02 | NUR ---
RN ROUNDS/ZOFRAN: PATIENT REPORTS BEING NAUSEATED, ZOFRAN PRN GIVEN TO PATIENT, TOLERATED WELL. HOB IS ELEVATED, NO S/S ACUTE DISTRESS NOTED AT THIS TIME. WILL CONTINUE TO MONITOR FOR ANY CHANGES. .
--- NOTE | 2020-07-16 04:07 | NUR ---
RN ROUNDS: PATIENT IS SLEEPING, BREATHING UNLABORED AND EVEN. NO S/S ACUTE DISTRESS NOTED. IVF RUNNING ORDERED RATE. SAFETY PRECAUTIONS MAINTAINED. CALL LIGHT IS WITH PATIENT. WILL CONTINUE TO MONITOR.
[2020-07-16] MEDS: INSULIN NPH/REGULAR 70-30, 100 UNITS/ML, 10 ML VIAL SUBCUT SCH ×2 (06:20→17:25)
--- NOTE | 2020-07-16 06:22 | NUR ---
CLOSING NOTE: PATIENT IS IN BED, RESTING. RESPIRATION EVEN AND UNLABORED ON RA. NO S/S ACUTE DISTRESS NOTED. ACCUCHEK PERFORMED, BG IS 148 MG/dL. PATIENT REFUSED INSULIN. PATIENT EDUCATED REGARDING S/S OF HYPERGLYCEMIA AND INSTRUCTED TO USE CALL LIGHT. PATIENT VERBALIZED UNDERSTANDING. IVF RUNNING AT 30 ML/HR. NO SIGN OF INFILTRATION NOTED. BED LOCKED IN LOWEST POSITION, CALL LIGHT IS WITH PATIENT.ALL NEEDS MET.WILL CONTINUE TO MONITOR AND PATIENT CARE WILL BE ENDORSED TO DAY SHIFT RN.
[2020-07-16 06:33] LABS: BASOPHILS # (AUTO) 0.1 K/uL (0.0-0.2); BASOPHILS % (AUTO) 0.5 % (0.0-2.0); EOSINOPHILS # (AUTO) 0.2 K/uL (0.0-0.4); EOSINOPHILS % (AUTO) 1.1 % (0.0-4.0); HEMATOCRIT 29.4 % (36-48); HEMOGLOBIN 9.5 g/dL (12.0-16.0); LYMPHOCYTES # (AUTO) 2.4 K/uL (1.0-5.5); LYMPHOCYTES % (AUTO) 15.2 % (20.5-51.5); MEAN CORPUSCULAR HEMOGLOBIN 23 pg (27-31); MEAN CORPUSCULAR HGB CONC 32 % (32-36); MEAN CORPUSCULAR VOLUME 72 fL (79.0-98.0); MONOCYTES # (AUTO) 1.1 K/uL (0.0-1.0); MONOCYTES % (AUTO) 6.8 % (1.7-9.3); NEUTROPHILS # (AUTO) 12.1 K/uL (1.8-7.7); NEUTROPHILS % (AUTO) 76.4 % (40.0-70.0); PLATELET COUNT (AUTO) 299 K/uL (130-430); RED BLOOD CELL COUNT(AUTO) 4.08 MIL/uL (4.2-6.2); RED CELL DISTRIBUTION WIDTH 18.4 % (9.0-15.0); WHITE BLOOD COUNT (AUTO) 15.8 K/uL (4.8-10.8)
[2020-07-16] MEDS ORDERED: hydrALAZINE HCL 25 MG TABLET PO ONE (07:00)
[2020-07-16 07:13] LABS: CALCIUM 7.7 mg/dL (8.4-11.0); CREATININE 3.28 mg/dL (0.55-1.30); POTASSIUM 3.8 mmol/L (3.5-5.1); THYROID STIMULATING HORMONE 7.04 uIu/mL (0.36-3.74); TOTAL BILIRUBIN 0.3 mg/dL (0.0-1.0)
[2020-07-16 07:21] LABS: TOTAL IRON BIND. CAPACITY 204 ug/dL (250-450)
--- NOTE | 2020-07-16 07:27 | NUR ---
Nutrition Update Khurram Scale 17 noted. Pt admitted for GENE, Ascites, uncontrolled DM Diet: [facility], [place] BMI: 28.5 kg/m2 RD to follow per nutrition care standards.
--- NOTE | 2020-07-16 07:45 | NUR ---
Opening Notes Patient is awake, alert and oriented x4, laying in bed at this time. No resp distress noted. Breathing is even and unlabored. Patient denies any pain at this time. Patient c/o nausea, requesting nausea medicine. Patients blood pressure is also elevated: 170/76. IV site on right AC, 20 gauge intact at this time. NS @ 30 cc/hr, infusing well. No infiltration or irritation noted at this time. Patient is ambulatory, steady gait. Patient has breakfast by bedside. All needs met at this time. Safety and fall precautions in place. Call light within reach. Bed in lowest position, locked. Will continue to monitor.
[2020-07-16 08:00] VITALS: BP_SYST 170
[2020-07-16 08:06] LABS: AFP, TUMOR MARKER 2.5 ng/mL (0.0-8.3)
[2020-07-16] MEDS: METOCLOPRAMIDE HCL 10 MG/2 ML VIAL IVP PRN ×2 (08:27→17:57)
--- NOTE | 2020-07-16 08:27 | NUR ---
Reglan & Hydralazine Patient was given Reglan for nausea and Hydralazine for elevated BP. All due meds rendered. Patient is laying in bed at this time. Will continue to monitor.
[2020-07-16] MEDS: DOCUSATE SODIUM 250 MG CAPSULE PO SCH ×2 (08:30→20:53)
[2020-07-16] MEDS: FAMOTIDINE 20 MG TABLET PO SCH (08:30)
[2020-07-16] MEDS: MINOXIDIL 10 MG TABLET (LONITEN) PO SCH ×2 (08:31→20:58)
[2020-07-16] MEDS: cloNIDine HCL 0.1 MG TABLET PO SCH ×3 (08:32→20:55)
[2020-07-16] MEDS: METOPROLOL TARTRATE 25 MG TABLET PO SCH ×2 (08:33→20:54)
--- NOTE | 2020-07-16 10:20 | NUR ---
Notes Patient is laying in bed, resting at this time. No resp distress noted. Breathing is even and unlabored at this time. Shows no pain at this time. Will continue to monitor.
[2020-07-16] MEDS: INSULIN LISPRO SLIDING SCALE 100 UNITS/ML VIAL (humaLOG) SUBCUT PRN ×3 (11:34→21:03)
--- NOTE | 2020-07-16 11:39 | NUR ---
Blood Sugar Patients BS was noted at 248 mg/dL. Per sliding scale, administered 4 units of Lispro insulin on right upper arm, tolerated well. Will continue to monitior.
--- NOTE | 2020-07-16 12:00 | NUR ---
Notes/IV leaking/New IV access Patient is awake, alert and oriented x4. IV site on right AC, is leaking at this time. Started new IV access on left FA, 22 gauge intact and flushing well at this time. IV ATB infusing at this time. No resp distress noted. Breathing is even and unlabored. Patient denies any nausea and vomiting at this time. Denies any pain. All needs met at this time. Call light within reach. Bed in lowest position, locked. Will continue to monitor.
[2020-07-16 12:06] VITALS: BP_SYST 140
--- NOTE | 2020-07-16 14:00 | NUR ---
Notes Patient is laying in bed, sleeping at this time. No resp distress noted. Breathing is even and unlabored. Denies any pain at this time. Will continue to monitor.
[2020-07-16] MEDS: AZITHROMYCIN 500 MG in NS 250 ML IV SCH (14:20)
--- NOTE | 2020-07-16 16:00 | NUR ---
Notes Patient is sleeping at this time. No resp distress noted. No signs of pain. No c/o nausea at this time. Will continue to monitor.
[2020-07-16 16:16] VITALS: BP_SYST 132
--- NOTE | 2020-07-16 17:30 | NUR ---
Blood Sugar/Humulin 70-30 Patients BS was noted at 223 mg/dL. Per sliding scale, administered 4 units of lispro insulin, tolerated well. Also administered scheduled Humulin 70-30, 15 units as ordered, tolerated well. Patient was educated to report any signs of symptoms of hypoglycemia. Patient educated to eat within 15 minutes of insulin administration, aware and agreed. Will continue to monitor.
--- NOTE | 2020-07-16 17:57 | NUR ---
Nausea/Reglan Patient is c/o nausea at this time. Administered Reglan 5 mg IVP, tolerated well. Emesis bags available at bedside. Will continue to monitor.
--- NOTE | 2020-07-16 19:18 | NUR ---
Closing Notes Patient is awake, alert and oriented x4. No resp distress noted. Breathing is even and unlabored. Denies any pain at this time. Patient is c/o nausea, reports feeling nauseous when smelling food. IV site on left FA, 22 gauge intact at this time. NS @ 60 cc/hr, infusing well at this time (change of rate.) IV site on right FA, 20 gauge intact at this time, saline lock. NO signs of infiltration or irritation noted. All needs met at this time. Safety and fall precautions in place. Bed in lowest position, locked. Will continue to monitor.
[2020-07-16 20:20] VITALS: BP_SYST 147
[2020-07-16] MEDS: cefTRIAXone 1 GM in D5W 50 ML IV SCH (20:53)
--- NOTE | 2020-07-16 23:23 | NUR ---
HIGH ALERT NOTE: Called Dr. LENZ back at identified within the medical roster to verify physician authenticity. MD MADE AWARE THAT PATIENT ASKED FOR A MEDICATION TO HELP HER SLEEP. MD ORDERED AMBIEN 5MG PO ONE TIME DOSE. MD AWARE OF NPO STATUS AT MIDNIGHT AND MADE AWARE THAT PATIENT HAS NO APPETITE FOR DINNER AND REFUSED NIGHT TIME INSULIN COVERAGE. MD ORDERED TO HOLD HUMULIN 70/30 WHILE PATIENT IS ON NPO STATUS. MD SAID TO FOLLOW HUMALOG SLIDING SCALE FOR BLOOD SUGAR GREATER THAN 150.
[2020-07-16] MEDS ORDERED: ZOLPIDEM TARTRATE 5 MG TABLET PO ONE (23:30)
[2020-07-17] VITALS (7 sets, daily range): BP systolic 116–176
[2020-07-17] MEDS: NACL 0.9% 1,000 ML IV SCH ×3 (04:27→21:45)
[2020-07-17] MEDS: INSULIN NPH/REGULAR 70-30, 100 UNITS/ML, 10 ML VIAL SUBCUT SCH ×2 (05:58→17:24)
[2020-07-17 06:06] LABS: FOLATE (FOLIC ACID) >20.0 ng/mL (>3.0)
[2020-07-17 07:14] LABS: BASOPHILS # (AUTO) 0.1 K/uL (0.0-0.2); BASOPHILS % (AUTO) 0.6 % (0.0-2.0); EOSINOPHILS # (AUTO) 0.2 K/uL (0.0-0.4); EOSINOPHILS % (AUTO) 1.2 % (0.0-4.0); HEMATOCRIT 32.5 % (36-48); HEMOGLOBIN 10.4 g/dL (12.0-16.0); LYMPHOCYTES # (AUTO) 2.7 K/uL (1.0-5.5); LYMPHOCYTES % (AUTO) 14.6 % (20.5-51.5); MEAN CORPUSCULAR HEMOGLOBIN 23 pg (27-31); MEAN CORPUSCULAR HGB CONC 32 % (32-36); MEAN CORPUSCULAR VOLUME 72 fL (79.0-98.0); MONOCYTES # (AUTO) 1.2 K/uL (0.0-1.0); MONOCYTES % (AUTO) 6.5 % (1.7-9.3); NEUTROPHILS # (AUTO) 14.3 K/uL (1.8-7.7); NEUTROPHILS % (AUTO) 77.1 % (40.0-70.0); PLATELET COUNT (AUTO) 372 K/uL (130-430); RED BLOOD CELL COUNT(AUTO) 4.53 MIL/uL (4.2-6.2); RED CELL DISTRIBUTION WIDTH 18.3 % (9.0-15.0); WHITE BLOOD COUNT (AUTO) 18.5 K/uL (4.8-10.8)
[2020-07-17 07:25] LABS: ALBUMIN 2.4 g/dL (3.4-4.8); CALCIUM 8.3 mg/dL (8.4-11.0); CREATININE 3.65 mg/dL (0.55-1.30); POTASSIUM 3.1 mmol/L (3.5-5.1); TOTAL BILIRUBIN 0.3 mg/dL (0.0-1.0)
--- NOTE | 2020-07-17 08:00 | NUR ---
Opening Notes Patient is awake, alert and oriented x4. No resp distress noted. Breathing is even and unlabored. Patient denies any pain at this time. Patient is c/o nausea at this time, requesting Reglan. Patient is also c/o "feeling heart palpitations." Will page Dr. White, will follow up. Patient remains NPO for scheduled CT angiogram with contrast today. (PO meds okay with small sips of water, per MD). IV site on left AC, 22 gauge intact, flushing well. No infiltration or irritation noted. NS @ 60 cc/hr, infusing well. IV site on right FA, 20 gauge intact, saline lock, flushing well. No infiltration noted. Patient reports no BM for 3 days. Denies any diarrhea, abnormal bleeding or cough. All needs met at this time. Safety and fall precautions in place. Call light within reach. Bed in lowest position, locked. Will continue monitor.
--- NOTE | 2020-07-17 08:10 | NUR ---
Reglan 5 mg IVP x nausea Patient c/o nausea. Administered Reglan 5 mg IVP, tolerated well. Will continue to monitor.
[2020-07-17] MEDS: DOCUSATE SODIUM 250 MG CAPSULE PO SCH ×2 (08:16→20:25)
[2020-07-17] MEDS: METOCLOPRAMIDE HCL 10 MG/2 ML VIAL IVP PRN (08:16)
[2020-07-17] MEDS: MINOXIDIL 10 MG TABLET (LONITEN) PO SCH ×2 (08:16→20:25)
[2020-07-17] MEDS: cloNIDine HCL 0.1 MG TABLET PO SCH ×3 (08:17→20:24)
[2020-07-17] MEDS: FAMOTIDINE 20 MG TABLET PO SCH (08:17)
[2020-07-17] MEDS: METOPROLOL TARTRATE 25 MG TABLET PO SCH ×2 (08:17→20:25)
--- NOTE | 2020-07-17 08:25 | NUR ---
CT ANGIOGRAM CANCELED d/t elevated BUN & Creatinine
--- NOTE | 2020-07-17 08:30 | NUR ---
Patient is being seen and examined by DR. HENNING
[2020-07-17] MEDS ORDERED: POTASSIUM CHLORIDE 20 MEQ TAB.PRT.SR PO ONE (09:15)
[2020-07-17] MEDS ORDERED: LORazepam 2 MG/ML VIAL IVP ONE (09:15)
--- NOTE | 2020-07-17 10:06 | NUR ---
Notes/Ativan and KCl 40 mEq Patient is anxious. Patient reports "heart palpitaitons." Administered Ativan 1 mg IVP x 1 only time as ordered by Dr. Van, tolerated well. Patient was also given KCl 40 mEq PO for low potassium level of 3.1, tolerated well. Patient is laying in bed at this time. All needs met. Call light within reach. Will continue to monitor. Addendum: 07/17/20 at 1016 by Enedelia Breaux RN Changed IV fluid rate: NS @ 125 ml/hr started.
--- NOTE | 2020-07-17 11:30 | NUR ---
Blood Sugar Patients BS was noted at 161 mg/dL. Per sliding scale, administered 2 units of Lispro insulin, tolerated well. Will continue to monitor.
[2020-07-17] MEDS: INSULIN LISPRO SLIDING SCALE 100 UNITS/ML VIAL (humaLOG) SUBCUT PRN ×3 (11:32→20:27)
--- NOTE | 2020-07-17 12:00 | NUR ---
Patient is being seen and examined by DR. BRUNO
--- NOTE | 2020-07-17 12:00 | NUR ---
Notes/Ativan Reassessment Patient is awake, alert and oriented x3. No resp distress noted. Breathing is even and unlabored. Patient DID NOT TOLERATE ATIVAN WELL. Patient reports feeling dizzy and "not herself" after the Ativan 1 mg IVP given earlier. Patient is noted mumbling her words, asking "What happened to me?". Patient was reoriented and educated that dizziness is a side effect of ATIVAN, aware and agreed. Nurse assisted patient to lay down in bed. brought her lunch, nurse assisted patient with lunch. Ate 15% of meal. Laying down in bed at this time, sleeping. All needs met at this time. Call light within reach. Bed in lowest position, locked. Will continue to monitor.
[2020-07-17] MEDS: AZITHROMYCIN 500 MG in NS 250 ML IV SCH (12:08)
[2020-07-17] MEDS: PIPERACILLIN/TAZO 2.25G/DEX-IS 50 ML IV SCH ×2 (13:40→21:32)
--- NOTE | 2020-07-17 13:42 | NUR ---
Notes Patient is laying in bed, resting at this time. Patient is anxious and intermittently confused. Per patient , "She needs attention, she wants to go home." Nurse educated pt that Dr. White will need to approve the discharge. aware and agreed. Will notify Dr. White when she comes in. No resp distress noted. Breathing is even and unlabored. Denies any pain, nausea or vomiting. All needs met at this time. Call light within reach. Will continue to monitor.
--- NOTE | 2020-07-17 14:30 | NUR ---
Confusion/Neuro Check Patient is noted with an episode of confusion. Patient is mumbling her words and asking, "What happened to me? Where am I?" Nurse performed a neuro check on patient. No signs of facial drooping. Pupils equal, round and reactive to light, hand rubber cutting machine tender equal in strength, patient able to keep bilateral arms up, no drifting noted. Patient was able to verbalize feeling in upper and lower extremities. Patient is asking, "Am I going home today?" Patient was educated the doctor will be notified. Patient was able to state name, and city [facility]. Notified charge nurse. Patient is laying in bed at this time. Will continue to monitor for now.
--- NOTE | 2020-07-17 16:40 | NUR ---
Notes Patient is awake, alert and oriented x3, more oriented at this time. Patient denies any dizziness at this time. No resp distress noted. Breathing is even and unlabored. Denies any pain at this time. Patient is consistently asking the nurse, "What happened to me? What happened to my kidneys?" Patient was educated of abnormal labs for kidney function. Encouraged patient to ask her doctor for the next steps of plan of care. Aware and agreed. All needs met at this time. Will continue to monitor.
--- NOTE | 2020-07-17 16:45 | NUR ---
Patient is being seen and examined by DR. LENZ
--- NOTE | 2020-07-17 17:30 | NUR ---
Blood Sugar/Humulin 70-30 Patients BS was noted at 178 mg/dL. Per sliding scale, administered 2 units of lispro insulin, tolerated well. Also administered scheduled Humulin 70-30, 15 units as ordered, tolerated well. Patient was educated to report any signs of symptoms of hypoglycemia. Patient educated to eat within 15 minutes of insulin administration, aware and agreed. Will continue to monitor.
--- NOTE | 2020-07-17 18:46 | NUR ---
Closing Notes Patient is awake, alert and oriented x, speaking with her on the phone. Patient is crying. No resp distress noted. Breathing is even and unlabored. Denies any pain, nausea or dizziness at this time. IV sites on right FA, 22 gauge intact at this time. NS @ 125 ml/hr, infusing well at this time. No signs of infiltration or irritation noted. IV site on left FA, 20 gauge intact, saline lock. Flushing well, no infiltration or irritation noted. Patient was instructed that we will need to collect her urine for the next 24 hours. Stool sample will also need to be collected. Patient reports no BM during shift. Will endorse to next nurse to provide patient with instructions. Canisters by bedside. All needs met at this time,. Call light within reach. Bed in lowest position, locked. Will continue to monitor.
--- NOTE | 2020-07-17 19:15 | NUR ---
change of shift.pt.presents quiescent affect;calm,resting.pt.to submit to 24-hr urine collection.i am ti initial the 24hr urine collection. pt.presents o2-therapy via nasal cannulae.pt.presents iv access x2 iv fluids infusing.pt's activity status oob/brp; as tolerated.pt.capable to reposition self/ambulate.call light/telephone w/in access of the pt.
--- NOTE | 2020-07-17 20:00 | NUR ---
pt.assessed.v/s assessed.values note b/p status elevated to review the emar med-list re;b/p medications.i have apprised the pt. that she is to submit to a 24hr urine collection.i have assisted the pt.to the restroom;pt.has provided the initial urine p/t to the initiation of the 24hr urine collection.i have re-iterated to the pt.that all subsequent urine to be collect x 24hrs. no c/o pain,nausea.iv access intact;patent iv fluids infusing.respiratory status tachypnea.o2-sat%=98%@2/lmin.pt.presents anxious status.to review the emar med list re;anxiety.pt.diet status;vegetarian food from home.i have provided the pt. w bsc to facilitate mictrition.pt.capable to reposition self.call light/telephone w/in reach of the pt.
--- NOTE | 2020-07-17 20:30 | NUR ---
i have assessed the blood glucose;value 158mg/dl.i have apprised the pt. of the value and the necessity to administer insulin per the sliding scale parameters. Addendum: 07/18/20 at 0235 by Johnny Rojo RN pt's telephoned the unit.i have apprised the pt's w pt's general status.updated data per the nsg parameters.pt's has requested that telephone him.to convey the pt's 's requests. to in the ;:07/18/20.
--- NOTE | 2020-07-17 21:00 | NUR ---
2100pmedications administered.the medication include the b/p medications scheduled.pt.capable to ingest the po medications w/out difficulty.i have administered insulin;humalog;-2units.per the sliding scale.
--- NOTE | 2020-07-17 21:30 | NUR ---
pt.presents anxious status.i have administered xanax:0.50mg po.i have administered ambien;5mg po.to continue to assess/monitor the pt's status.
[2020-07-17] MEDS: ZOLPIDEM TARTRATE 5 MG TABLET PO PRN (21:33)
[2020-07-17] MEDS: ALPRAZolam 0.25 MG TABLET PO PRN (21:33)
--- NOTE | 2020-07-17 22:00 | NUR ---
pt.assessed.pt.presents quiescent affect;calm,resting.respiratory status stable;slightly labored;02-sat%=98%.iv fluids infusing.pt.capable to reposition self.call light/telephone w/in reach of the pt.
--- NOTE | 2020-07-18 | NUR ---
pt.assessed.pt.stated she presented dyspnea.cxr per was attended to.i paged the radiology dept to have the results read.the cxr results read.i paged w/the results;cxr.i apprised the pt's lungs assessed upon auscultation presented congestion. ordered lasix;20mg ivp x1,decrease the iv fluids rate to 70ml/hr.inh:treatment albuterol;x1 and change the inh treatment albuterol frequency to q-6hrs/prn i have administered lasix 20mg ivp x1.i have decreased the iv fluids rate;70ml/hr.no c/o pain,nausea.bsc w/in access of the pt. pt.presents respiratory rate; tachypnea,breathing pattern labored;02-sat%=98%@2l/min via nasal cannulae..pt.capable to reposition self.call light/telephone w/in access of the pt.
[2020-07-18] MEDS ORDERED: ALBUTEROL SULFATE 0.083% 2.5 MG/3 ML VIAL.NEB INH PRN (00:15)
[2020-07-18] MEDS ORDERED: FUROSEMIDE 20 MG/2 ML VIAL IVP ONE ×2 (00:15→18:00)
[2020-07-18] MEDS ORDERED: ALBUTEROL SULFATE 0.083% 2.5 MG/3 ML VIAL.NEB INH ONE ×2 (00:15)
[2020-07-18] MEDS ORDERED: NACL 0.9% 1,000 ML IV SCH (00:15)
[2020-07-18 00:29] VITALS: BP_SYST 151
--- NOTE | 2020-07-18 02:00 | NUR ---
pt.assessed.pt.presents quiescent affect;calm,somnolent.per flacc pain mgx pt.absent facial grimaces/body posturing.bsc inspected clean w/in reach of the pt.iv access intact;patent iv fluids infusing.respiratory status stable;unlabored.02-sat% =98%@2l/min.nasal cannulae.pt.capable to reposition self.call light/telephone w/in access of the pt.
--- NOTE | 2020-07-18 02:15 | NUR ---
i have assisted the pt.to the bsc.i have assisted the pt's return to bed.pt.capable to reposition self.no c/o camacho,nausea. call light/telephone placed w/in access of the pt.
--- NOTE | 2020-07-18 04:00 | NUR ---
pt.assessed.pt.presents quiescent affcet;calm,somnolent.general status stable.respiratory status stable;lslightly labored; 02-sat%=96%. iv fluids infusing.pt.capable to reposition self.call light/telephone w/in reach of the pt.
[2020-07-18] MEDS: PIPERACILLIN/TAZO 2.25G/DEX-IS 50 ML IV SCH ×3 (05:48→21:00)
[2020-07-18] MEDS: ALPRAZolam 0.25 MG TABLET PO PRN ×2 (06:00→17:24)
--- NOTE | 2020-07-18 06:25 | NUR ---
pt.assessed.i have assisted the pt.to the bsc.pt.has mictrated.i have measured the volume.placed the urine sample w/in the 24hr urine collection container.pt.assisted return to bed.pt.capable to reposition self.pt.had presented anxious status.i have administered xanax;0.5mg po.i have assessed the blood glucose;value;106mg/dl.i have apprised the pt.of the blood glucose value. i have weighed the pt.2/t renal status,chf,bnp elevated..general status stable.respiratory slightly labored;o2-sat%=98%.call light/telephone placed w/in access of the pt.
[2020-07-18 06:35] LABS: BASOPHILS # (AUTO) 0.1 K/uL (0.0-0.2); BASOPHILS % (AUTO) 0.7 % (0.0-2.0); EOSINOPHILS # (AUTO) 0.2 K/uL (0.0-0.4); EOSINOPHILS % (AUTO) 1.1 % (0.0-4.0); HEMATOCRIT 28.5 % (36-48); HEMOGLOBIN 9.1 g/dL (12.0-16.0); LYMPHOCYTES # (AUTO) 1.9 K/uL (1.0-5.5); LYMPHOCYTES % (AUTO) 11.2 % (20.5-51.5); MEAN CORPUSCULAR HEMOGLOBIN 23 pg (27-31); MEAN CORPUSCULAR HGB CONC 32 % (32-36); MEAN CORPUSCULAR VOLUME 72 fL (79.0-98.0); MONOCYTES % (AUTO) 5.7 % (1.7-9.3); NEUTROPHILS # (AUTO) 13.9 K/uL (1.8-7.7); NEUTROPHILS % (AUTO) 81.3 % (40.0-70.0); PLATELET COUNT (AUTO) 337 K/uL (130-430); RED BLOOD CELL COUNT(AUTO) 3.95 MIL/uL (4.2-6.2); RED CELL DISTRIBUTION WIDTH 18.4 % (9.0-15.0); WHITE BLOOD COUNT (AUTO) 17.1 K/uL (4.8-10.8)
[2020-07-18] MEDS: INSULIN NPH/REGULAR 70-30, 100 UNITS/ML, 10 ML VIAL SUBCUT SCH ×2 (06:40→17:10)
[2020-07-18 06:58] LABS: ALBUMIN 2.4 g/dL (3.4-4.8); CALCIUM 7.6 mg/dL (8.4-11.0); CREATININE 3.66 mg/dL (0.55-1.30); POTASSIUM 4.1 mmol/L (3.5-5.1); TOTAL BILIRUBIN 0.2 mg/dL (0.0-1.0)
[2020-07-18 08:00] VITALS: BP_SYST 134
--- NOTE | 2020-07-18 08:00 | NUR ---
Opening note Received patient AAO sitting over bedside table to reduce pressure in thorax. On nasal cannula 6lpm satting 99% titrated to 5lpm. IV infusing via infusing pump NS at 70ml/hr thru #22 left a/c, right #20 patent. Reenforced urine collection need. Breakfast at bedside assisted patient with setup. Bed in low, call light in reach, side rails up for safety will continue to monitor.
[2020-07-18] MEDS: FAMOTIDINE 20 MG TABLET PO SCH (08:32)
[2020-07-18] MEDS: METOPROLOL TARTRATE 25 MG TABLET PO SCH ×2 (08:32→20:56)
[2020-07-18] MEDS: DOCUSATE SODIUM 250 MG CAPSULE PO SCH ×2 (08:32→20:51)
[2020-07-18] MEDS: cloNIDine HCL 0.1 MG TABLET PO SCH ×3 (08:34→20:57)
[2020-07-18] MEDS: MINOXIDIL 10 MG TABLET (LONITEN) PO SCH ×2 (08:34→20:51)
[2020-07-18 10:33] VITALS: BP_SYST 134
[2020-07-18] MEDS ORDERED: FUROSEMIDE 20 MG TABLET PO ONE (11:00)
[2020-07-18 11:16] LABS: MYCOPLASMA PNEUMONIAE IgM <770 U/mL (0-769)
[2020-07-18] MEDS: INSULIN LISPRO SLIDING SCALE 100 UNITS/ML VIAL (humaLOG) SUBCUT PRN ×3 (12:11→21:05)
[2020-07-18 12:39] VITALS: BP_SYST 141
[2020-07-18] MEDS: AZITHROMYCIN 500 MG in NS 250 ML IV SCH (12:39)
--- NOTE | 2020-07-18 14:08 | NUR ---
Patient found on toilet in bathroom, with SOB and stool on floor and clothing. Unaware if patient voided with the BM due to language barrier. Cleaned patient and assisted back to bed. Informed her to use BSC for future bathroom needs or to call for assistance.
--- NOTE | 2020-07-18 15:48 | NUR ---
Dietitian Recommendations *Continue CCHO, Mechanical Soft *Encourage PO intake Please see Nutrition Assessment for further details. LT, RD
[2020-07-18 16:53] VITALS: BP_SYST 150
[2020-07-18] MEDS: ACETAMINOPHEN 650 MG/20.3 ML UDC PO PRN (17:31)
--- NOTE | 2020-07-18 17:34 | NUR ---
Patient c/o flank pain 04/03 but stating she can not breath. Vital signs 141/75, hr 100, SPO2 99% temp 99.6. Medicated for anxiety and for pain with Tylenol and xanax.. Addendum: 07/18/20 at 1740 by Jelani Matthews RN Also reposition patient to bedside with head on bedside table.
--- NOTE | 2020-07-18 18:05 | NUR ---
Dr White in to see patient received new orders and carried out
--- NOTE | 2020-07-18 18:30 | NUR ---
Dr Vann informed of 24 hour urine collection to be inaccurate and ordered to cancel
--- NOTE | 2020-07-18 18:45 | NUR ---
Closing note Patient resting in bed on 3lpm nasal canula, SOB issue has resolved, and she feels better. called Dr White to change Lop[ressor order from 25mg to 50mg BID stated she will do it and received orders to change HHN to Q8H and carried out. Bed in low call light in reach side rails up for safety will endorse to next shift.
[2020-07-18] MEDS: ALBUTEROL SULFATE 0.083% 2.5 MG/3 ML VIAL.NEB INH PRN (19:09)
[2020-07-18 19:45] VITALS: BP_SYST 127
--- NOTE | 2020-07-18 19:50 | NUR ---
INITIAL NOTE AT INITIAL ASSESSMENT, PATIENT IS RESTING IN BED, STABLE, NO SIGNS OF RESPIRATORY DISTRESS. PATIENT VERBALIZES NO PAIN. PLAN OF CARE FOR THE EVENING IS COMMUNICATED WITH THE PATIENT. BED IS LOCKED, ALARMED, AND AT THE LOWEST LEVEL. FALL, SAFETY, RESPIRATORY, AND ASPIRATION PRECAUTIONS WILL BE TAKEN THROUGHOUT THE SHIFT.
[2020-07-18] MEDS: ACETAMINOPHEN 500 MG TABLET PO PRN (21:14)
--- NOTE | 2020-07-18 21:50 | NUR ---
NOTE SCHEDULED MEDICATIONS GIVEN AT THIS TIME. PATIENT IS STABLE, NO SIGNS OF RESPIRATORY DISTRESS. BED IS LOCKED, ALARMED, AND AT THE LOWEST LEVEL.
[2020-07-18 23:14] LABS: ANTI NUCLEAR AB WITH REFLEX Positive (Negative)
--- NOTE | 2020-07-18 23:50 | NUR ---
NOTE PATIENT IS SLEEPING, STABLE, NO SIGNS OF RESPIRATORY DISTRESS. CALL LIGHT IS WITHIN REACH. BED IS LOCKED, ALARMED, AND AT THE LOWEST LEVEL.
[2020-07-19] VITALS: BP_SYST 132
--- NOTE | 2020-07-19 01:50 | NUR ---
NOTE PATIENT IS SLEEPING, STABLE, NO SIGNS OF RESPIRATORY DISTRESS. CALL LIGHT IS WITHIN REACH. BED IS LOCKED, ALARMED, AND AT THE LOWEST LEVEL.
--- NOTE | 2020-07-19 03:50 | NUR ---
NOTE PATIENT IS SLEEPING, STABLE, NO SIGNS OF RESPIRATORY DISTRESS. CALL LIGHT IS WITHIN REACH. BED IS LOCKED, ALARMED, AND AT THE LOWEST LEVEL.
--- NOTE | 2020-07-19 05:30 | NUR ---
NEW IV NOTE BOTH OF PATIENT'S IV'S ARE NOTED TO BE INFILTRATED. OLD IV'S ARE D/C, CATHETER TIP INTACT, NO SIGNS OF ACTIVE BLEED NOTED. NEW IV IS PLACED ON LEFT WRIST #22, 10 MLS NS FLUSHED WITH NO RESISTANCE, PATIENT TOLERATED WELL. PATIENT IS REPOSITIONED FOR COMFORT, SHE IS STABLE, NO SIGNS OF RESPIRATORY DISTRESS. CALL LIGHT IS WITHIN REACH. BED IS LOCKED, ALARMED, AND AT THE LOWEST LEVEL.
[2020-07-19] MEDS: PIPERACILLIN/TAZO 2.25G/DEX-IS 50 ML IV SCH ×3 (06:02→22:08)
[2020-07-19] MEDS: INSULIN NPH/REGULAR 70-30, 100 UNITS/ML, 10 ML VIAL SUBCUT SCH (06:14)
[2020-07-19 07:18] LABS: BASOPHILS # (AUTO) 0.1 K/uL (0.0-0.2); EOSINOPHILS # (AUTO) 0.5 K/uL (0.0-0.4); EOSINOPHILS % (AUTO) 4.4 % (0.0-4.0); HEMOGLOBIN 7.6 g/dL (12.0-16.0); LYMPHOCYTES # (AUTO) 1.6 K/uL (1.0-5.5); LYMPHOCYTES % (AUTO) 14.6 % (20.5-51.5); MEAN CORPUSCULAR HEMOGLOBIN 23 pg (27-31); MEAN CORPUSCULAR HGB CONC 32 % (32-36); MEAN CORPUSCULAR VOLUME 73 fL (79.0-98.0); MONOCYTES # (AUTO) 1.1 K/uL (0.0-1.0); NEUTROPHILS # (AUTO) 7.8 K/uL (1.8-7.7); PLATELET COUNT (AUTO) 248 K/uL (130-430); RED BLOOD CELL COUNT(AUTO) 3.32 MIL/uL (4.2-6.2); RED CELL DISTRIBUTION WIDTH 18.3 % (9.0-15.0); WHITE BLOOD COUNT (AUTO) 11.1 K/uL (4.8-10.8)
[2020-07-19 07:56] LABS: ALBUMIN 1.9 g/dL (3.4-4.8); CALCIUM 7.6 mg/dL (8.4-11.0); CREATININE 4.49 mg/dL (0.55-1.30); POTASSIUM 3.6 mmol/L (3.5-5.1); TOTAL BILIRUBIN 0.2 mg/dL (0.0-1.0)
[2020-07-19 08:00] VITALS: BP_SYST 133
--- NOTE | 2020-07-19 08:00 | NUR ---
Note Pt sitting up on side of bed to eat her breakfast (cream of wheat). No SOB/resp distress or pain/discomfort was noted at this time. IV in left wrist intact and patent at this time. Tele unit attached and intact at this time. No needs noted at this time. Call light within reach.
[2020-07-19] MEDS: FAMOTIDINE 20 MG TABLET PO SCH (09:00)
[2020-07-19] MEDS: MINOXIDIL 10 MG TABLET (LONITEN) PO SCH (09:01)
[2020-07-19] MEDS: DOCUSATE SODIUM 250 MG CAPSULE PO SCH ×2 (09:02→21:48)
[2020-07-19] MEDS: cloNIDine HCL 0.1 MG TABLET PO SCH ×2 (09:02→21:48)
[2020-07-19] MEDS: METOPROLOL TARTRATE 25 MG TABLET PO SCH ×2 (09:02→21:49)
--- NOTE | 2020-07-19 10:00 | NUR ---
Note Dr Van at pt's bedside at 0905am, assessing pt and answering questions/concerns at this time. Dr Smith at pt's bedside at 0945am assessing pt (MD was here assessing another pt on the floor).
--- NOTE | 2020-07-19 10:16 | NUR ---
CONSULTATION PAGED/CALLED Reason for Consultation: [] CHF, DIASTOLIC DYSFUNCTION Person Who was Notified: [] DR ARNOLD Consulting Physician: [] DR ARNOLD Embryology Teacher Specialty: [] CARDIO Ordering Physician: [] DR LENZ
--- NOTE | 2020-07-19 11:00 | NUR ---
Note Dr Van and Dr Smith stated pt is AAOX4 at this time, insertion of Bernal catheter not needed, pt can urinate in BSC and 24' urine collection can be collected that way. Dr Van ordered at CT guided Kidney biopsy, Radiology notified that the kit has to be ordered and this biopsy will be done Wednesday/Wednesday. Dr Van was notified. Radiology called back and stated that this Kidney biopsy kit and test has to be approved by Insurance before the kit can be ordered. KIKE Zhang was called at 1040am and requested that pt's insurance be called for approval.
[2020-07-19 11:04] LABS: ERYTHROCYTE SEDIMENTATION RATE 87 MM/HR (0-20)
[2020-07-19] MEDS: INSULIN LISPRO SLIDING SCALE 100 UNITS/ML VIAL (humaLOG) SUBCUT PRN ×3 (11:32→21:58)
--- NOTE | 2020-07-19 11:40 | NUR ---
NOTE Pt was informed that 24' urine collection was going to be collected at this time. Pt has urine hat in BSC. Pt understood urine collection was being done for 24' starting today.
--- NOTE | 2020-07-19 11:45 | NUR ---
DC Planning: Kidney biopsy kit and procedure: Vincenzo LVM to Arya RN/CM at [facility] to confirm approval per dr. Van 's request. Cm to f/u. Addendum: 07/19/20 at 1352 by Leatha Vail RN >> Consulted with charles Simental CNO for the need to get biopsy kit auth from [employer]. Kamille stated she verified with admitting dept that there is no need to get the auth, since [facility] is a contracted facility with [facility]. KIMBERLEY Blank made aware, she already contacted laboratory to order the Bx kit. Per Rosamaria, she notified dr. White of [facility] down trending and ordered INR testing for Wednesday. >> Per Romct/Radiology dept , plans for the procedure as soon as the kit is available possible on Wednesday or Wednesday. He also confirmed with Madhuri/Emma that she will be ordering the kit today.
[2020-07-19] MEDS: AZITHROMYCIN 500 MG in NS 250 ML IV SCH (12:04)
[2020-07-19 12:22] VITALS: BP_SYST 150
[2020-07-19] MEDS: hydrALAZINE HCL 25 MG TABLET PO SCH ×2 (14:03→22:08)
[2020-07-19 15:02] LABS: ATYPICAL pANCA <1:20 titer (Neg:<1:20); CYTOPLASMIC (C-ANCA) <1:20 titer (Neg:<1:20); CYTOPLASMIC (P-ANCA) <1:20 titer (Neg:<1:20)
[2020-07-19] MEDS: ALBUTEROL SULFATE 0.083% 2.5 MG/3 ML VIAL.NEB INH PRN (15:55)
--- NOTE | 2020-07-19 16:45 | NUR ---
Note Dr White on the floor and at pt's bedside assessing pt. Answering questions/concerns at this time. Call light within reach.
[2020-07-19 16:55] VITALS: BP_SYST 140
--- NOTE | 2020-07-19 17:30 | NUR ---
Note Pt's tele unit was dc'd and returned to library monitor at this time. No needs noted at this time. Call light within reach.
--- NOTE | 2020-07-19 18:20 | NUR ---
Note Pt resting her head on pillow on bedside table for comfort. No SOB/resp distress or pain/discomfort noted at this time. IV in left hand intact and patent at this time. Pt was checked on q1' and PRN all shift for needs and care. Pt was maintained with safety precautions all shift. No needs noted at this time. Call light within reach. Pt has her O2 on at 2L/nc for comfort.
[2020-07-19 19:00] VITALS: BP_SYST 167
--- NOTE | 2020-07-19 19:15 | NUR ---
change of shift.pt.presents quiescent affect;calm,resting.iv access to be re-established.pt.submitting to a 24 urine collection. initiated@1330p 07/19/20.pt utilizing the bsc;w hat placed.general status stable.respiratory status slight labored;pt.receiving the administration o2 therapy via nasal cannulae@the rate;2l/min.call light/telephone w/in access of the pt.
[2020-07-19 20:00] VITALS: BP_SYST 167
--- NOTE | 2020-07-19 20:00 | NUR ---
pt.assessed.v/s assessed note b/p values elevate.to review the emar med-list re:/b/p medications.i have apprised the pt.that snacks/beverages are available w/in the shift.no requests posited@this hour.i have attended to the bsc;measured/cleaned placed w/in access of the pt. general status stable.respiratory status stable;slight labored;02-sat%=98%.pt.capable to reposition self.call light/telephone w/in access of the pt.
--- NOTE | 2020-07-19 20:30 | NUR ---
i have assessed the blood glucose value;187mg/dl.i have apprised the pt.of the blood glucose value.
--- NOTE | 2020-07-19 21:00 | NUR ---
2100pmedications administered.pt.capable to ingest the po medications w/out difficulty.pt.had requested medication; sleep; i have administered ambien:5mg po.i have administered insulin;humalog;2-units per the sliding scale parameters. Addendum: 07/20/20 at 0307 by Johnny Rojo RN saleem vicente/lizbeth has re-established iv access;location;rt.forearm;#22g.
[2020-07-19] MEDS: ZOLPIDEM TARTRATE 5 MG TABLET PO PRN (21:49)
--- NOTE | 2020-07-19 22:00 | NUR ---
pt.assessed.pt.presents quiescent affect;calm,resting.i have disconnected the iv fluids post zosyn administration.no c/o pain,nausea.no requests posited@this hour.pt.capable to reposition self.i have attended to the bsc;measured/cleaned placed w/in access of the pt.call light/telephone w/in reach of the pt.
[2020-07-20] VITALS: BP_SYST 129
--- NOTE | 2020-07-20 | NUR ---
pt.assessed.v/s assessed noted bp status wnl.no c/o pain,nausea.no requests posited@this hour.pt.capable to reposition self. i have inspected the bsc;clean.w/in access of the pt.general status stable.respiratory status slight labored;02-sat%=98%. call light/telephone placed w/in access of the pt.
--- NOTE | 2020-07-20 00:30 | NUR ---
pt.assumed the orhtopnic position;to facilitate breathing pt.presents anxious status.i have administered xanax;0.5mg po. no additional requests posited@this hour.
[2020-07-20] MEDS: ALPRAZolam 0.25 MG TABLET PO PRN (00:38)
--- NOTE | 2020-07-20 02:00 | NUR ---
pt.assessed.pt.presents quiescent affect;calm,somnolent.general status stable.respiratory status stable;slight labored;02-sat %=98%. i have inspected the bsc.clean w/in access of pt.pt.capable to reposition self.iv access intact;patent.call light/telephone w/in access of the pt.
--- NOTE | 2020-07-20 04:00 | NUR ---
pt.assessed.pt.presents quiescent affect;calm,resting.pt.assumed the orthopnic position to facilitate breathing.i have attended to the bsc.measured/cleaned placed w/in access of the pt.iv access intact;patent iv lock.pt.capable to reposition self.no requests posited@this hour.call light/telephone w/in access of the pt.
[2020-07-20] MEDS: PIPERACILLIN/TAZO 2.25G/DEX-IS 50 ML IV SCH ×3 (05:57→21:40)
[2020-07-20] MEDS: hydrALAZINE HCL 25 MG TABLET PO SCH ×3 (05:58→23:06)
[2020-07-20 06:17] LABS: BASOPHILS # (AUTO) 0.1 K/uL (0.0-0.2); EOSINOPHILS # (AUTO) 0.5 K/uL (0.0-0.4); EOSINOPHILS % (AUTO) 4.5 % (0.0-4.0); HEMATOCRIT 27.4 % (36-48); HEMOGLOBIN 8.7 g/dL (12.0-16.0); LYMPHOCYTES # (AUTO) 1.8 K/uL (1.0-5.5); LYMPHOCYTES % (AUTO) 14.8 % (20.5-51.5); MEAN CORPUSCULAR HEMOGLOBIN 23 pg (27-31); MEAN CORPUSCULAR HGB CONC 32 % (32-36); MEAN CORPUSCULAR VOLUME 72 fL (79.0-98.0); MONOCYTES # (AUTO) 1.1 K/uL (0.0-1.0); MONOCYTES % (AUTO) 8.9 % (1.7-9.3); NEUTROPHILS # (AUTO) 8.6 K/uL (1.8-7.7); NEUTROPHILS % (AUTO) 70.8 % (40.0-70.0); PLATELET COUNT (AUTO) 290 K/uL (130-430); RED CELL DISTRIBUTION WIDTH 18.3 % (9.0-15.0); WHITE BLOOD COUNT (AUTO) 12.2 K/uL (4.8-10.8)
--- NOTE | 2020-07-20 06:30 | NUR ---
pt.assesed.pt.has assumed the orthopnic position to facilitate breathing..i have assessed the blood glucose;value;146mg/dl. i have assessed the v/s p/t to the administration of apresoline;note b/p values wnl.i have administered apresoline;po.per the v/s parameters.i have administered zosyn abx ivpb 0600a dose.i have inspected bsc;clean w/in access of the pt.general status stable.respiratory status stable;slight labored.02-sat%=98%.call light/telephone placed w/in access of the pt.
[2020-07-20 07:07] LABS: ALBUMIN 2.1 g/dL (3.4-4.8); CREATININE 4.8 mg/dL (0.55-1.30); POTASSIUM 3.6 mmol/L (3.5-5.1); TOTAL BILIRUBIN 0.3 mg/dL (0.0-1.0)
--- NOTE | 2020-07-20 08:00 | NUR ---
PATIENT IS SLEEPY, BUT EASILY AROUSABLE, AOX4. IV ON THE RIGHT FA, #20, SITE INTACT AND PATENT. ON O2 2L NC, SATTING AT HIGH 90S%. OFFERED BREAKFAST. CALL LIGHT IN PLACE, BED LOCKED AT THE LOWEST POSITION, WILL CONTINUE TO MONITOR.
[2020-07-20] MEDS: FAMOTIDINE 20 MG TABLET PO SCH (08:02)
[2020-07-20] MEDS: DOCUSATE SODIUM 250 MG CAPSULE PO SCH ×3 (08:04→21:38)
[2020-07-20] MEDS: cloNIDine HCL 0.1 MG TABLET PO SCH ×2 (08:04→21:00)
[2020-07-20] MEDS: METOPROLOL TARTRATE 25 MG TABLET PO SCH ×2 (08:05→18:50)
[2020-07-20] MEDS: MINOXIDIL 10 MG TABLET (LONITEN) PO SCH (08:06)
[2020-07-20] MEDS: ACETAMINOPHEN 500 MG TABLET PO PRN (08:13)
--- NOTE | 2020-07-20 10:20 | NUR ---
PATIENT IS RESTING, NO SIGNS OF DISTRESS NOTED. WILL CONTINUE TO MONITOR.
[2020-07-20 11:51] VITALS: BP_SYST 135
[2020-07-20] MEDS ORDERED: FUROSEMIDE 40 MG/4 ML VIAL IVP ONE (12:00)
[2020-07-20] MEDS: INSULIN LISPRO SLIDING SCALE 100 UNITS/ML VIAL (humaLOG) SUBCUT PRN ×3 (12:02→21:40)
--- NOTE | 2020-07-20 12:05 | NUR ---
DR. ARNOLD AND DR. STERN ASSESSED PATIENT. BOTH CONTACTED DR. LAWSON, THE HAIR SPECIALIST, ON THE DECISION OF PUTTING THE VALERI CATHETER OR NOT.
--- NOTE | 2020-07-20 13:00 | NUR ---
DR. LAWSON IS AT BEDSIDE, AND GIVES APPROVAL TO PERFORM VALERI CATHETER INSERTION FOR STAT DIALYSIS.
[2020-07-20] MEDS ORDERED: TUBERCULIN,PURIF.PROT.DERIV. 0.1 ML SYR ID ONE (13:15)
[2020-07-20] MEDS ORDERED: HEPARIN SODIUM,PORCINE 5,000 UNITS/ML VIAL MC ONE (13:15)
[2020-07-20 13:16] LABS: INR 1.1 (0.8-1.2); PROTHROMBIN TIME 11.4 SECS (9.5-12.5)
[2020-07-20 14:28] LABS: PATIENT WEIGHT 183.5 LBS
[2020-07-20 14:30] LABS: CREATININE 4.49 mg/dL (0.55-1.30)
--- NOTE | 2020-07-20 15:28 | NUR ---
VALERI CATH PLACEMENT COMPLETED; V/S STABLE.
[2020-07-20] MEDS ORDERED: LIDOCAINE 1%, 20 ML MDV 20 ML ONE (15:41)
[2020-07-20 16:26] VITALS: BP_SYST 108
[2020-07-20] MEDS ORDERED: NALOXONE HCL 0.4 MG/ML AMP (NARCAN) IVP PRN (16:30)
[2020-07-20] MEDS ORDERED: HYDROcodone/ACETAMIN 5-325 MG TAB (NORCO/ VICODIN) PO ONE (16:30)
--- NOTE | 2020-07-20 16:30 | NUR ---
HIGH ALERT NOTE: Called Dr. LENZ back at identified within the medical roster to verify physician authenticity.
--- NOTE | 2020-07-20 17:08 | NUR ---
BS 180. WILL GIVE COVERAGE.
--- NOTE | 2020-07-20 17:18 | NUR ---
PATIENT DEVELOPS NEW ONSET OF A-FIB, HR 110S-130S. BLOOD PRESSURE IS STABLE AT 110S SBP. DR[address] ROSARIO IS CALLED. AWAITING CALL BACK.
[2020-07-20] MEDS: NEPHROVITE, (FOLIC ACID/VITAMIN B COMP W-C 1 TAB) PO SCH (17:57)
--- NOTE | 2020-07-20 18:37 | NUR ---
DR. ROSARIO CALLS BACK. INFORMATION IS RELAYED. ORDERED TO GIVE 2100 METOPROLOL NOW. WILL BE CARRIED OUT.
--- NOTE | 2020-07-20 19:10 | NUR ---
OPENING NOTE PATIENT ON DIALYSIS AT THIS TIME. DIALYSIS NURSE AT BEDSIDE. PATIENT AOX4. NO SIGNS OF RESPIRATORY DISTRESS AND DISCOMFORT NOTED. BREATHING EVEN AND UNLABORED. ON 2L OF OXYGEN VIA NASAL CANULA, TOLERATING WELL. IV SITE, PATENCY NOTED. CALL LIGHT WITHIN REACH. PATIENT WAS EDUCATED TO USE CALL LIGHT WHEN ASSISTANCE IS NEEDED. PATIENT ABLE TO VERBALIZED UNDERSTANDING. BED LOCKED AND IN LOWEST POSITION. SAFETY PRECAUTIONS IN PLACE. BED ALARM ON. WILL CONTINUE TO MONITOR PATIENT.
[2020-07-20 20:00] VITALS: BP_SYST 117
--- NOTE | 2020-07-20 21:40 | NUR ---
MED PASS/PM=734 DUE MEDICATION WAS GIVEN AT THIS TIME. BS 155, 2 UNITS OF HUMALOG WAS GIVEN FOR COVERAGE. PATIENT WAS EDUCATED ON MEDICATION THAT WAS GIVEN FOR ITS PURPOSE, SIDE EFFECT AND BENEFITS. PATIENT ABLE TO VERBALIZED UNDERSTANDING. CALL LIGHT WITHIN REACH. SAFETY PRECAUTIONS IN PLACE. WILL CONTINUE TO MONITOR PATIENT
--- NOTE | 2020-07-20 21:42 | NUR ---
FINISHED DIALYSIS. AMBULATE TO BATHROOM DIALYSIS DONE AT THIS TIME. PATIENT TOLERATED WELL. PATIENT HAS NO SIGNS OF RESPIRATORY DISTRESS AND DISCOMFORT NOTED. BREATHING EVEN AND UNLABORED. ON 2L OF OXYGEN TOLERATING WELL. PATIENT WAS ASSISTED TO BATHROOM WELL AND SAFELY BACK TO BED. CALL LIGHT WITHIN REACH. SAFETY PRECAUTIONS IN PLACE. WILL CONTINUE TO MONITOR PATIENT
[2020-07-20 23:26] LABS: CREATININE,URINE 87.6 MG/DL (30-125); TPROTEIN U,24HR 4379.7 mg/24HR (0-130)
--- NOTE | 2020-07-20 23:45 | NUR ---
RN ROUNDS PATIENT ASLEEP AT THIS TIME. NO SIGNS OF RESPIRATORY DISTRESS AND DISCOMFORT NOTED. BREATHING EVEN AND UNLABORED. ON 2L OF OXYGEN VIA NASAL CANULA, TOLERATING WELL. IVF INFUSING WELL. CALL LIGHT WITHIN REACH. SAFETY PRECAUTIONS IN PLACE. WILL CONTINUE TO MONITOR PATIENT
[2020-07-21] VITALS: BP_SYST 132
[2020-07-21] MEDS: ALBUTEROL SULFATE 0.083% 2.5 MG/3 ML VIAL.NEB INH PRN ×2 (01:14→20:10)
--- NOTE | 2020-07-21 01:57 | NUR ---
SPOKE WITH DR. LUIS VINCENT MADE AWARE OF PATIENT COMPLAINT OF HEAVINESS IN HER CHEST AND DISCOMFORT. MD GAVE NEW ORDER AT THIS TIME
[2020-07-21] MEDS: ALPRAZolam 0.25 MG TABLET PO PRN (02:35)
[2020-07-21 02:36] LABS: CALCIUM 7.9 mg/dL (8.4-11.0); CREATININE 3.14 mg/dL (0.55-1.30)
[2020-07-21 02:45] LABS: PHOSPHORUS 5.1 mg/dL (2.7-4.5)
[2020-07-21 02:48] LABS: POTASSIUM 2.9 mmol/L (3.5-5.1)
--- NOTE | 2020-07-21 02:55 | NUR ---
CRITICAL LAB VALUES/ SPOKE WITH DR. MARLENE VINCENT MADE AWARE OF PATIENTS K OF 2.9, AND TROPONIN OF 1.19. MD GAVE NEW ORDER FOR POTASSIUM. AWARE THAT PATIENT HAD DIALYSIS THIS EVENING 9.26.20 2099. MD WAS ASK FOR ORDER FOR TROPONIN, NO NEW ORDER FOR TROPONIN AT THIS TIME. CHARGE NURSE AWARE.
--- NOTE | 2020-07-21 02:55 | NUR ---
HIGH ALERT NOTE: Called Dr. Hqaue back at [phone], Identified within the medical roster to verify physician authenticity.
[2020-07-21] MEDS ORDERED: POTASSIUM CHLORIDE 20 MEQ/PKT PACKET PO ONE (03:00)
[2020-07-21 03:02] LABS: C-REACTIVE PROTEIN QUANT 6.6 mg/dL (0-0.5)
[2020-07-21] MEDS ORDERED: POTASSIUM CHLORIDE 20 MEQ/PKT PACKET ONE (03:20)
--- NOTE | 2020-07-21 03:27 | NUR ---
Paged Missael Wakefield.
--- NOTE | 2020-07-21 03:46 | NUR ---
RN ROUNDS PATIENT ASLEEP AT THIS TIME. NO SIGNS OF RESPIRATORY DISTRESS AND DISCOMFORT NOTED. BREATHING EVEN AND UNLABORED. ON 2L OF OXYGEN VIA NASAL CANULA, TOLERATING WELL .CALL LIGHT WITHIN REACH. SAFETY PRECAUTIONS IN PLACE. WILL CONTINUE TO MONITOR PATIENT
[2020-07-21] MEDS: PIPERACILLIN/TAZO 2.25G/DEX-IS 50 ML IV SCH ×3 (05:10→22:21)
[2020-07-21] MEDS: hydrALAZINE HCL 25 MG TABLET PO SCH ×3 (05:15→22:00)
[2020-07-21] MEDS: INSULIN LISPRO SLIDING SCALE 100 UNITS/ML VIAL (humaLOG) SUBCUT PRN ×3 (06:14→20:25)
[2020-07-21] MEDS: METOCLOPRAMIDE HCL 10 MG/2 ML VIAL IVP PRN (06:33)
--- NOTE | 2020-07-21 06:41 | NUR ---
CLOSING NOTE/NAUSEA PATIENT VERBALIZED FEELING NAUSEOUS, PRN MEDICATION FOR NAUSEA GIVEN AT THIS TIME. PATIENT SITTING AT BEDSIDE. NO SIGNS OF RESPIRATORY DISTRESS NOTED. BREATHING EVEN AND UNLABORED. ON 2L OF OXYGEN VIA NASAL CANULA,TOLERATING WELL. IV SITE, PATENCY NOTED. CALL LIGHT WITHIN REACH. PATIENT WAS EDUCATED TO USE CALL LIGHT WHEN NEEDS TO GO BACK TO BED, PATIENT ABLE TO VERBALIZED UNDERSTANDING. ALL NEEDS MET THROUGHOUT THE SHIFT. WILL CONTINUE TO MONITOR PATIENT UNTIL ENDORSE TO ONCOMING SHIFT NURSE FOR CONTINUITY OF CARE.
[2020-07-21 06:50] LABS: BASOPHILS # (AUTO) 0.1 K/uL (0.0-0.2); BASOPHILS % (AUTO) 0.9 % (0.0-2.0); EOSINOPHILS # (AUTO) 0.3 K/uL (0.0-0.4); EOSINOPHILS % (AUTO) 2.8 % (0.0-4.0); HEMATOCRIT 29.1 % (36-48); HEMOGLOBIN 9.5 g/dL (12.0-16.0); LYMPHOCYTES # (AUTO) 1.9 K/uL (1.0-5.5); LYMPHOCYTES % (AUTO) 15.8 % (20.5-51.5); MEAN CORPUSCULAR HEMOGLOBIN 23 pg (27-31); MEAN CORPUSCULAR HGB CONC 33 % (32-36); MEAN CORPUSCULAR VOLUME 71 fL (79.0-98.0); MONOCYTES # (AUTO) 1.1 K/uL (0.0-1.0); MONOCYTES % (AUTO) 9.3 % (1.7-9.3); NEUTROPHILS # (AUTO) 8.8 K/uL (1.8-7.7); NEUTROPHILS % (AUTO) 71.2 % (40.0-70.0); PLATELET COUNT (AUTO) 309 K/uL (130-430); RED BLOOD CELL COUNT(AUTO) 4.08 MIL/uL (4.2-6.2); RED CELL DISTRIBUTION WIDTH 18.2 % (9.0-15.0); WHITE BLOOD COUNT (AUTO) 12.3 K/uL (4.8-10.8)
--- NOTE | 2020-07-21 07:35 | NUR ---
OPENING NOTE Patient sitting in the bed. No acute distress. C/O nauseas, night nurse gave Reglan not effective, will give Zofran. Shubham cath intact to right jugular vein with clean and dry dressing, no bleeding noted. SL intact to RFA, no redness, no swelling, patent. Safety measure maintained. Call light within reached. Will continue to monitor.
--- NOTE | 2020-07-21 07:51 | NUR ---
TALKED PATIENT'S OUTPATIENT SUPERVISOR LAMP SHADES REGARDING UPDATE. SANTHOSH REYES WANTS TO TALK TO PCP AND NEPHRO IN THE HOSPITAL. CELLPHONE NUMBER [phone]. WILL GIVE CELLPHONE NUMBER WHEN PCP AND NEPHRO COMES.
[2020-07-21] MEDS: ONDANSETRON HCL 4 MG/2 ML VIAL IVP PRN (07:53)
[2020-07-21 07:55] VITALS: BP_SYST 137
[2020-07-21] MEDS: DOCUSATE SODIUM 250 MG CAPSULE PO SCH ×2 (08:15→20:34)
[2020-07-21] MEDS: ACETAMINOPHEN 500 MG TABLET PO PRN (08:18)
[2020-07-21] MEDS: MINOXIDIL 10 MG TABLET (LONITEN) PO SCH (08:18)
[2020-07-21] MEDS: FAMOTIDINE 20 MG TABLET PO SCH (08:19)
[2020-07-21] MEDS: NEPHROVITE, (FOLIC ACID/VITAMIN B COMP W-C 1 TAB) PO SCH (08:19)
[2020-07-21] MEDS: METOPROLOL TARTRATE 25 MG TABLET PO SCH ×2 (08:19→20:27)
[2020-07-21] MEDS: cloNIDine HCL 0.1 MG TABLET PO SCH ×2 (08:24→20:28)
[2020-07-21 09:37] LABS: ERYTHROCYTE SEDIMENTATION RATE 98 MM/HR (0-20)
--- NOTE | 2020-07-21 10:37 | NUR ---
SEEN AND EXAMINED BY JACQUES MCGRAW WITH ORDER RECEIVED. PATIENT'S OUTPATIENT LOCK AND DAM REPAIRER SANTHOSH REYES CELLPHONE NUMBER GIVEN TO DR. LAWSON REGARDING UPDATE.
[2020-07-21 11:14] LABS: BASOPHILS # (AUTO) 0.1 K/uL (0.0-0.2); BASOPHILS % (AUTO) 1.1 % (0.0-2.0); EOSINOPHILS # (AUTO) 0.3 K/uL (0.0-0.4); EOSINOPHILS % (AUTO) 2.3 % (0.0-4.0); HEMATOCRIT 24.6 % (36-48); LYMPHOCYTES # (AUTO) 1.3 K/uL (1.0-5.5); LYMPHOCYTES % (AUTO) 11.3 % (20.5-51.5); MEAN CORPUSCULAR HEMOGLOBIN 23 pg (27-31); MEAN CORPUSCULAR HGB CONC 32 % (32-36); MEAN CORPUSCULAR VOLUME 72 fL (79.0-98.0); MONOCYTES % (AUTO) 8.6 % (1.7-9.3); NEUTROPHILS # (AUTO) 9.1 K/uL (1.8-7.7); NEUTROPHILS % (AUTO) 76.7 % (40.0-70.0); PLATELET COUNT (AUTO) 247 K/uL (130-430); RED BLOOD CELL COUNT(AUTO) 3.44 MIL/uL (4.2-6.2); RED CELL DISTRIBUTION WIDTH 18.1 % (9.0-15.0); WHITE BLOOD COUNT (AUTO) 11.8 K/uL (4.8-10.8)
[2020-07-21 11:20] LABS: CALCIUM 7.6 mg/dL (8.4-11.0); CREATININE 3.73 mg/dL (0.55-1.30); POTASSIUM 3.5 mmol/L (3.5-5.1)
[2020-07-21] MEDS: CALCIUM ACETATE 667 MG CAP PO SCH ×2 (11:21→17:22)
--- NOTE | 2020-07-21 11:22 | NUR ---
JQ=747 No insulin coverage needed per sliding scale. Patient resting in the bed. No acute distress. Continue on O2 2L/min via NC. Safety measure maintained. Call light within reached. Bed locked in low position, side rails up, bed alarm on. Continue to monitor.
--- NOTE | 2020-07-21 11:26 | NUR ---
GONZALEZ JACKSONT Seen and examined by Dr. Eagle with order received. Informed to Dr. Eagle, the patient's friend who is forensic analyst Beena Marin wanted to talk to him. Dr. Carr in the unit and talked to Dr. Eagle she already talked to Dr. Ramos so Dr. Eagle not going to call.
[2020-07-21 11:29] VITALS: BP_SYST 118
--- NOTE | 2020-07-21 12:20 | NUR ---
RECEIVED PHONE CALL FROM PATIENT'S FOR UPDATE. TOLD THE PATIENT WILL HAVE HEMODIALYSIS TODAY AND LAB JUST DONE.
--- NOTE | 2020-07-21 12:48 | NUR ---
CONSULTATION PAGED/CALLED Reason for Consultation: ABDOMINAL PAIN Person Who was Notified: NILESH Consulting Physician: DR. VIGIL Cage Loader Specialty: GI Ordering Physician: DR. SMITH
--- NOTE | 2020-07-21 13:11 | NUR ---
HEMODIALYSIS STARTED Patient resting in the bed. No acute distress. Continue on O2 2L/min via NC. Dialysis nurse at bedside and hemodialysis started. Safety measure maintained. Call light within reached. Continue to monitor.
--- NOTE | 2020-07-21 14:20 | NUR ---
CONTINUE ON HEMODIALYSIS Patient resting in the bed. No acute distress. Ongoing dialysis. Dialysis nurse at bedside. Safety measure maintained. Call light within reached. Continue to monitor.
--- NOTE | 2020-07-21 14:40 | NUR ---
SEEN AND EXAMINED BY DENNIS BOTELLO.
[2020-07-21] MEDS ORDERED: SIMETHICONE 80 MG TAB.CHEW PO ONE (15:00)
[2020-07-21] MEDS ORDERED: HEPARIN SODIUM,PORCINE 5,000 UNITS/ML VIAL MC ONE (15:15)
--- NOTE | 2020-07-21 15:19 | NUR ---
Case mgt: Case review--pt has started on new HD--may need dc planning f/u for HD as new HD pt--lives at home with family-- RN
[2020-07-21 15:45] VITALS: BP_SYST 135
--- NOTE | 2020-07-21 16:16 | NUR ---
HEMODIALYSIS COMPLETED Report received from dialysis [facility]. Patient VS stable, no acute distress, 2.5L out. Safety measure maintained. Call light within reached. Bed locked in low position, side rails up, bed alarm on. Continue to monitor.
--- NOTE | 2020-07-21 16:30 | NUR ---
PORTABLE X-RAY DONE TO ABDOMEN. PATIENT TOLERATED PROCEDURE WELL.
--- NOTE | 2020-07-21 17:22 | NUR ---
YE=427 Humalog insulin 2 units given per sliding scale. No acute distress. Continue on O2 2L/min via NC. Safety measure maintained. Call light within reached. Bed locked in low position, side rails up, bed alarm on. Continue to monitor.
--- NOTE | 2020-07-21 17:25 | NUR ---
DR. MARLENE Haque in the unit. Reported to Dr. Haque, patient's troponin=0.887, yesterday was 1.198 which is treading down. Therefore, no call him this morning. Dr. Haque stated "that's good".
--- NOTE | 2020-07-21 18:58 | NUR ---
CLOSING NOTE Patient resting in the bed. No acute distress. Skin warm and dry to touch. Shubham cath intact to right jugular vein with clean and dry dressing, no bleeding noted. SL intact to RFA, no redness, no swelling, patent. All needs met. Safety measure maintained. Call light within reached. Will endorse to night nurse.
--- NOTE | 2020-07-21 19:20 | NUR ---
OPENING NOTE PATIENT SITTING AT BEDSIDE CHAIR, PATIENT AOX4. NO SIGNS OF RESPIRATORY DISTRESS AND DISCOMFORT NOTED. BREATHING EVEN AND UNLABORED. ON 2L OF OXYGEN VIA NASAL CANULA, TOLERATING WELL. IV SITE, PATENCY NOTED. CALL LIGHT WITHIN REACH. PATIENT WAS EDUCATED TO USE CALL LIGHT WHEN ASSISTANCE IS NEEDED. PATIENT ABLE TO VERBALIZED UNDERSTANDING. BED LOCKED AND IN LOWEST POSITION. SAFETY PRECAUTIONS IN PLACE. BED ALARM ON. WILL CONTINUE TO MONITOR PATIENT.
[2020-07-21 20:00] VITALS: BP_SYST 139
--- NOTE | 2020-07-21 20:26 | NUR ---
MED PASS/II=363 DUE MEDICATION WAS GIVEN AT THIS TIME. BS 184, 2 UNITS OF HUMALOG WAS GIVEN FOR COVERAGE. PATIENT WAS EDUCATED ON MEDICATION THAT WAS GIVEN FOR ITS PURPOSE, SIDE EFFECT AND BENEFITS. PATIENT ABLE TO VERBALIZED UNDERSTANDING. CALL LIGHT WITHIN REACH. NEEDS ATTENDED. SAFETY PRECAUTIONS IN PLACE. WILL CONTINUE TO MONITOR PATIENT.
[2020-07-21] MEDS: SIMETHICONE 80 MG TAB.CHEW PO SCH (20:28)
[2020-07-21] MEDS: ZOLPIDEM TARTRATE 5 MG TABLET PO PRN (23:20)
--- NOTE | 2020-07-21 23:29 | NUR ---
RN ROUNDS PATIENT AWAKE, REQUEST MEDICATION THAT WILL HELP HER SLEEP TONIGHT. PRN FOR INSOMNIA WAS GIVEN PER ORDER. PATIENT WAS EDUCATED ON MEDICATION THAT WAS GIVEN FOR ITS PURPOSE, SIDE EFFECT AND BENEFITS. PATIENT ABLE TO VERBALIZED UNDERSTANDING. PATIENT VITAL SIGNS TAKEN AND WILL BE RECORDED. NO SIGNS OF RESPIRATORY DISTRESS AND DISCOMFORT NOTED. BREATHING EVEN AND UNLABORED. NEEDS ATTENDED. CALL LIGHT WITHIN REACH. SAFETY PRECAUTIONS IN PLACE.
[2020-07-22] VITALS (21 sets, daily range): BP systolic 130–233
[2020-07-22] MEDS: PIPERACILLIN/TAZO 2.25G/DEX-IS 50 ML IV SCH (05:14)
[2020-07-22] MEDS: hydrALAZINE HCL 25 MG TABLET PO SCH ×3 (05:15→21:26)
[2020-07-22] MEDS: INSULIN LISPRO SLIDING SCALE 100 UNITS/ML VIAL (humaLOG) SUBCUT PRN ×2 (06:31→18:30)
--- NOTE | 2020-07-22 06:44 | NUR ---
CLOSING NOTE/ BS 146 BS CHECKED =146, NO COVERAGE NEEDED. PATIENT SITTING UP IN BED. VERBALIZED FEELING BETTER. NO SIGNS OF RESPIRATORY DISTRESS NOTED. BREATHING EVEN AND UNLABORED. ON 1L OF OXYGEN VIA NASAL CANULA,TOLERATING WELL. IV SITE, PATENCY NOTED. CALL LIGHT WITHIN REACH. SAFETY PRECAUTIONS IN PLACE. ALL NEEDS MET THROUGHOUT THE SHIFT. WILL CONTINUE TO MONITOR PATIENT UNTIL ENDORSE TO ONCOMING SHIFT NURSE FOR CONTINUITY OF CARE.
[2020-07-22 06:54] LABS: INR 1.1 (0.8-1.2); PROTHROMBIN TIME 11.7 SECS (9.5-12.5)
[2020-07-22 06:56] LABS: BASOPHILS # (AUTO) 0.1 K/uL (0.0-0.2); BASOPHILS % (AUTO) 0.8 % (0.0-2.0); EOSINOPHILS # (AUTO) 0.3 K/uL (0.0-0.4); EOSINOPHILS % (AUTO) 2.9 % (0.0-4.0); HEMATOCRIT 25.5 % (36-48); HEMOGLOBIN 8.3 g/dL (12.0-16.0); LYMPHOCYTES % (AUTO) 19.5 % (20.5-51.5); MEAN CORPUSCULAR HEMOGLOBIN 23 pg (27-31); MEAN CORPUSCULAR HGB CONC 33 % (32-36); MEAN CORPUSCULAR VOLUME 72 fL (79.0-98.0); MONOCYTES # (AUTO) 1.1 K/uL (0.0-1.0); MONOCYTES % (AUTO) 10.4 % (1.7-9.3); NEUTROPHILS # (AUTO) 6.8 K/uL (1.8-7.7); NEUTROPHILS % (AUTO) 66.4 % (40.0-70.0); PLATELET COUNT (AUTO) 288 K/uL (130-430); RED BLOOD CELL COUNT(AUTO) 3.57 MIL/uL (4.2-6.2); RED CELL DISTRIBUTION WIDTH 18.2 % (9.0-15.0); WHITE BLOOD COUNT (AUTO) 10.2 K/uL (4.8-10.8)
[2020-07-22 07:02] LABS: ALBUMIN 2.2 g/dL (3.4-4.8); CREATININE 3.4 mg/dL (0.55-1.30); PHOSPHORUS 4.9 mg/dL (2.7-4.5); POTASSIUM 3.5 mmol/L (3.5-5.1); TOTAL BILIRUBIN 0.3 mg/dL (0.0-1.0)
--- NOTE | 2020-07-22 07:25 | NUR ---
TROPONIN=0.839 Received the troponin level=0.839 which is trending down, will inform to Dr. Smith when he comes.
--- NOTE | 2020-07-22 07:28 | NUR ---
OPENING NOTE Patient resting in the bed. No acute distress. Skin warm and dry to touch. Shubham cath intact to right jugular vein with clean and dry dressing, no bleeding noted. SL intact to RFA, no redness, no swelling, patent. Discussed the safety issue, use call light when needs help, and plan of care, verbally understanding. Safety measure maintained. Call light within reached. Bed locked in low position, side rails up, bed alarm on. Will continue to monitor.
[2020-07-22 07:32] LABS: C-REACTIVE PROTEIN QUANT 5.4 mg/dL (0-0.5)
[2020-07-22] MEDS ORDERED: TUBERCULIN,PURIF.PROT.DERIV. 0.1 ML SYR ID ONE (08:00)
--- NOTE | 2020-07-22 08:10 | NUR ---
SEEN AND EXAMINED BY ANA CURRIE WITH ORDER RECEIVED Per Dr. Van, patient need a PPD because patient will go to dialysis outpatient and the nurse in dialysis center will read the result. NPO now except med for left side renal biopsy today.
--- NOTE | 2020-07-22 08:13 | NUR ---
SEEN AND EXAMINED BY GORDON DAY.
[2020-07-22] MEDS: DOCUSATE SODIUM 250 MG CAPSULE PO SCH ×3 (08:18→21:00)
[2020-07-22] MEDS: MINOXIDIL 10 MG TABLET (LONITEN) PO SCH (08:18)
[2020-07-22] MEDS: CALCIUM ACETATE 667 MG CAP PO SCH ×3 (08:18→19:27)
[2020-07-22] MEDS: cloNIDine HCL 0.1 MG TABLET PO SCH ×2 (08:19→21:00)
[2020-07-22] MEDS: FAMOTIDINE 20 MG TABLET PO SCH (08:19)
[2020-07-22] MEDS: SIMETHICONE 80 MG TAB.CHEW PO SCH ×3 (08:19→21:25)
[2020-07-22] MEDS: NEPHROVITE, (FOLIC ACID/VITAMIN B COMP W-C 1 TAB) PO SCH (08:19)
[2020-07-22] MEDS: METOPROLOL TARTRATE 25 MG TABLET PO SCH ×2 (08:20→21:27)
--- NOTE | 2020-07-22 08:32 | NUR ---
REFUSED FLU VACCINE Offered flu vaccine, patient refused. Dr. Van in the unit make awake.
--- NOTE | 2020-07-22 08:42 | NUR ---
PPD GIVEN TO RIGHT FOREARM. PATIENT TOLERATED WELL. NO C/O PAIN. CONTINUE TO MONITOR.
[2020-07-22 09:13] LABS: ERYTHROCYTE SEDIMENTATION RATE 105 MM/HR (0-20)
--- NOTE | 2020-07-22 10:20 | NUR ---
SEEN AND EXAMINED BY LATASHA LEVIN.
--- NOTE | 2020-07-22 10:49 | NUR ---
SEEN AND EXAMINED BY PAULO DESAI.
--- NOTE | 2020-07-22 10:54 | NUR ---
PATIENT OFF UNIT VIA BED FOR LEFT SIDE RENAL BIOPSY IN STABLE CONDITION.
[2020-07-22] MEDS ORDERED: KETAMINE 30 MG/3 ML SYRINGE ONE (11:22)
--- NOTE | 2020-07-22 11:38 | NUR ---
Time out for Renal Bx. Addendum: 07/22/20 at 1317 by Leo Arredondo RN Patient is brought to CT department via a gurney. She is alert oriented x4. Dr. Sanches is at bedside and explain the procedure and getting a consent for the CT guided left Renal Bx. Time out is done.
--- NOTE | 2020-07-22 11:43 | NUR ---
Moderate sedation started: Give 60 mg of Ketamine IVF for moderate sedation. Patient was set on prone position with Oxygen 2 L/M via NC, monitor Q 3 hrs during the procedure. Start NS IVF for TKO during moderate sedation.
--- NOTE | 2020-07-22 11:49 | NUR ---
High BP during Moderate sedation: Patient is sedated, normal breathing RR=18, VA=91, Sat B5=187% with Oxygen 2 L/M via NC. CZ=928/110. Dr. Sanches is at bedside is aware and has spoke to Dr. Franks in ER, and agree to continue the procedure.
--- NOTE | 2020-07-22 11:58 | NUR ---
more sedated : Patient start to wake up during procedure. Give another 30 mg of Ketamine IVP as ordered.
--- NOTE | 2020-07-22 12:13 | NUR ---
Moderate sedation finished: Finishing CT guided with Bx of left kidney. Patient tolerates well with stable condition. V/S is in the recorded.Will continue recovery period <1:1> in patient's room.
--- NOTE | 2020-07-22 12:30 | NUR ---
Back to the room for 1:1 recovery: Patient is still sleeping, but stable condition. Still monitor V/S q 15 min. Report given to Tracie , a primary nurse.
[2020-07-22] MEDS: cefTRIAXone 1 GM in D5W 50 ML IV SCH (12:53)
--- NOTE | 2020-07-22 12:57 | NUR ---
PATIENT BACK TO UNIT VIA BED. PATIENT RESTING IN THE BED WITH EYE CLOSED. NO ACUTE DISTRESS. ON O2 2L/MIN VIA NC. SAFETY MEASURE MAINTAINED. CALL LIGHT WITHIN REACHED. BED LOCKED IN LOW POSITION, SIDE RAILS UP, BED ALARM ON. MAN RN STAY AT BEDSIDE WITH PATIENT.
--- NOTE | 2020-07-22 13:01 | NUR ---
HA=151 No insulin given due to patient NPO. Will continue to monitor.
[2020-07-22] MEDS: ONDANSETRON HCL 4 MG/2 ML VIAL IVP PRN (13:05)
--- NOTE | 2020-07-22 13:30 | NUR ---
Finishing recovery period: Patient is awake, alert, back to base line with stable condition. V/S is recorded . Give report to Tracie to continue monitor.
--- NOTE | 2020-07-22 14:25 | NUR ---
ROUND Patient resting in the bed. No acute distress. Continue on O2 2L/min via NC. Biopsy site on left back flank area intact with bandage, no bleeding, no drainage noted. Safety measure maintained. Call light within reached. Bed locked in low position, side rails up, bed alarm on. Continue to monitor.
--- NOTE | 2020-07-22 14:32 | NUR ---
DC Planning: Discussed dcp with dr. White and received dc home with for detention f/u and HD out patient per Renal. [facility] out patient will be arranged by Ana/Dr Van. DCP/Liliam will f/u with Ana. Addendum: 07/22/20 at 1443 by Leatha Vail RN >>LVM to jonathon Rodriguez at [facility], # re: dc to home with home health order.
--- NOTE | 2020-07-22 15:18 | NUR ---
Nutrition F/U Admitting Diagnosis: Acute Kidney Injury, Uncontrolled Diabetic Medical History Comment: PMHx includes DM with nephropathy and opthalmopathy, HTN, CKD, B12 and iron deficiency per physician notes. SARS-CoV-2 Ag Rapid 07/14 Negative Subjective Information Pt was not in room during RD rounding this morning. RD s/w pt's primary RN Tracie who reported that pt is out of room to get Kidney biopsy. Per Nephrology notes, pt is for custodial dialysis program and will have HD today after the biopsy is done. Per RN report, pt's family has been bringing in food for pt and might be discharged today. Current diet remains appropriate. Current Diet Order/Nutrition Support: [facility], Renal Standard diet since 07/20 Pertinent Medications: Reglan, Colace, Insulin, Pepcid, phoslo, Nephrovite, Piperacillin/tazobactam Pertinent Labs (07/22) Na 137WNL, K 3.5WNL, BG 126H, POC BG 146H, BUN 15WNL, CRE 3.4H Usual Diet At Home: Vegetarian Skin Integrity Comment: Khurram Score: 20, +generalized non pitting edema, and no PIs per nursing note. Current % PO Poor (25-49%) Estimated Energy Expenditure (kcals/day) 1710-1995kcal/day (30-35kcal/kg based on IBW for sepsis) Estimated Protein Required (g/day) 57-86g/day (1-1.5g/kg based on IBW for sepsis, ARF) Estimated Fluid Required (l/day) Deferred to MD d/t acute renal failure and CHF Problem/Etiology/Signs/Symptoms Inadequate protein energy intake r/t poor appetite and emotional distress AEB pt with poor PO intake per RN report (*ongoing) Altered nutrition related labs r/t renal dysfunction AEB elevated CRE lab values. (*new 07/22) Expected Outcomes/Goals Monitor appetite and PO intakes w/ goal of pt meeting at least 75% of estimated nutritional needs, labs trending WNL, normal GI function, and skin integrity/wt maintenance Dietitian Recommendations *Continue [facility] Renal Standard diet. *Recommend Nepro BID for optimal nutritional intake. Follow Up High Risk: F/U in 2-3days
--- NOTE | 2020-07-22 15:25 | NUR ---
Dietitian Recommendations *Continue [facility] Renal Standard diet. *Recommend Nepro BID for optimal nutritional intake. Please see Nutrition F/U note for details. CAROLYNE, RD
[2020-07-22] MEDS: ALBUTEROL SULFATE 0.083% 2.5 MG/3 ML VIAL.NEB INH PRN (15:56)
--- NOTE | 2020-07-22 16:15 | NUR ---
HEMODIALYSIS STARTED Patient resting in the bed. No acute distress. Continue on O2 2L/min via NC. Safety measure maintained. Call light within reached. Bed locked in low position, side rails up, bed alarm on. Dialysis nurse at bedside.
--- NOTE | 2020-07-22 17:05 | NUR ---
SEEN AND EXAMINED BY SARY MOJICA Reported to Dr. White the patient's CS=964 when back from biopsy. No insulin was given due to patient not eating.
--- NOTE | 2020-07-22 17:20 | NUR ---
CONTINUE ON HEMODIALYSIS Patient resting in the bed. No acute distress. Continue on O2 2L/min via NC. Safety measure maintained. Call light within reached. Continue to monitor. Dialysis nurse at bedside.
--- NOTE | 2020-07-22 17:25 | NUR ---
CLOSING NOTE Patient completed hemodialysis with 2500ml out. Patient resting in the bed. No acute distress. Continue on O2 2L/min shannan NC. Skin warm and dry to touch. Shubham cath intact to right jugular vein intact with clean and dy dressing. SL intact to RFA, no redness, no swelling, patent. Left back flank puncture site for biopsy intact with bandage, no bleeding, no drainage, no odor noted. All needs met. Safety measure maintained. Call light within reached. Bed locked in low position, side rails up, bed alarm on. Endorsed to night KIMBERLEY Powers.
[2020-07-22] MEDS ORDERED: HEPARIN SODIUM,PORCINE 5,000 UNITS/ML VIAL IVP ONE (17:30)
[2020-07-22] MEDS: EPOETIN ALFA 3,000 UNITS/ML VIAL SUBCUT SCH (18:28)
--- NOTE | 2020-07-22 18:30 | NUR ---
RS=220 Humalog insulin 2 units given per sliding scale. Per patient she will eat. No acute distress. Still on hemodialysis in progress. Dialysis nurse at bedside. PO Rikki not to give at this time until complete hemodialysis. Call light within reached. Continue to monitor.
--- NOTE | 2020-07-22 19:35 | NUR ---
Opening Note Received patient resting in bed, w/eyes closed, no distress and nonlabored breathing on 2L NC. and presently denies pain. IV to RFA is SL. HD was just recently completed and patient is tired and wants to rest and be covered up. Bed is locked in lowest position, and bed alarm on. She was instructed on use of call light and verbalized understanding. Updated board and reviewed plan of care.
[2020-07-22] MEDS: ACETAMINOPHEN 500 MG TABLET PO PRN (21:26)
--- NOTE | 2020-07-22 21:26 | NUR ---
Meds Due meds given, patient swallowed meds with apple juice. B/P was 123/51 HR 107 and gave two blood pressure meds (Apresoline & Lopressor) and held Clonidine. Patient was reporting pain and discomfort to right side of neck at central line access; no active bleeding noted and dressing intact; Tylenol was given and placed ice pack over dressing. Patient wanted to sit on side of bed w/ legs dangle and also wanted sleeping pill. I assisted her to sit up and informed that when she is laying down she can have Ambien, not while she sits due to side effects of drowsiness.
--- NOTE | 2020-07-22 21:48 | NUR ---
Fingerstick, Aleshaien Patient is resting in bed, she was pulled up for comfort. Fingerstick glucose result is 134 mg/dL and no coverage due. She was given Aleshaien as requested, call light is w/in reach and bed alarm is on.
[2020-07-22] MEDS: ZOLPIDEM TARTRATE 5 MG TABLET PO PRN (21:50)
--- NOTE | 2020-07-22 22:28 | NUR ---
rounds - F/U Patient is resting in side posture, left side down. She reports neck pain has decreased; she said if she is lying on side no pain.
[2020-07-23] VITALS: BP_SYST 125
--- NOTE | 2020-07-23 00:10 | NUR ---
V/S V/S are stable and patient resting in comfortable position. Does not report pain. Safety precautions in place and call light w/in reach.
--- NOTE | 2020-07-23 02:01 | NUR ---
Sleeping Patient is sleeping, no s/sx of distress, non labored breathing noted. Call light w/in reach, will continue to monitor.
[2020-07-23] MEDS: hydrALAZINE HCL 25 MG TABLET PO SCH ×3 (06:00→22:00)
[2020-07-23] MEDS: ONDANSETRON HCL 4 MG/2 ML VIAL IVP PRN ×2 (06:33→19:37)
[2020-07-23 06:45] VITALS: BP_SYST 113
[2020-07-23 06:53] LABS: BASOPHILS # (AUTO) 0.1 K/uL (0.0-0.2); BASOPHILS % (AUTO) 1.1 % (0.0-2.0); EOSINOPHILS # (AUTO) 0.1 K/uL (0.0-0.4); EOSINOPHILS % (AUTO) 1.3 % (0.0-4.0); HEMATOCRIT 24.8 % (36-48); HEMOGLOBIN 7.9 g/dL (12.0-16.0); LYMPHOCYTES # (AUTO) 1.4 K/uL (1.0-5.5); LYMPHOCYTES % (AUTO) 12.3 % (20.5-51.5); MEAN CORPUSCULAR HEMOGLOBIN 23 pg (27-31); MEAN CORPUSCULAR HGB CONC 32 % (32-36); MEAN CORPUSCULAR VOLUME 72 fL (79.0-98.0); MONOCYTES % (AUTO) 9.3 % (1.7-9.3); NEUTROPHILS # (AUTO) 8.4 K/uL (1.8-7.7); PLATELET COUNT (AUTO) 269 K/uL (130-430); RED BLOOD CELL COUNT(AUTO) 3.46 MIL/uL (4.2-6.2); RED CELL DISTRIBUTION WIDTH 17.5 % (9.0-15.0)
[2020-07-23 07:32] LABS: ALBUMIN 2.2 g/dL (3.4-4.8); CALCIUM 8.3 mg/dL (8.4-11.0); CREATININE 4.98 mg/dL (0.55-1.30); POTASSIUM 3.6 mmol/L (3.5-5.1); TOTAL BILIRUBIN 0.4 mg/dL (0.0-1.0)
[2020-07-23 08:00] VITALS: BP_SYST 142
[2020-07-23] MEDS: FAMOTIDINE 20 MG TABLET PO SCH (08:43)
[2020-07-23] MEDS: METOPROLOL TARTRATE 25 MG TABLET PO SCH ×2 (08:43→21:14)
[2020-07-23] MEDS: NEPHROVITE, (FOLIC ACID/VITAMIN B COMP W-C 1 TAB) PO SCH (08:43)
[2020-07-23] MEDS: cloNIDine HCL 0.1 MG TABLET PO SCH ×2 (08:44→21:13)
[2020-07-23] MEDS: CALCIUM ACETATE 667 MG CAP PO SCH ×3 (08:44→18:10)
[2020-07-23] MEDS: MINOXIDIL 10 MG TABLET (LONITEN) PO SCH (08:44)
[2020-07-23] MEDS: DOCUSATE SODIUM 250 MG CAPSULE PO SCH ×2 (08:44→21:00)
[2020-07-23] MEDS: SIMETHICONE 80 MG TAB.CHEW PO SCH ×3 (08:44→21:14)
--- NOTE | 2020-07-23 10:33 | NUR ---
SS notes/HH: BODY SHOP WORKER phoned DONITA KENT [facility]rya @ [phone] and left voicemail for status of HH auth and HH contracted list. BODY SHOP WORKER phoned [facility] @ [phone], pt is set up with [facility] in [place] but will give confirmation once insurance has been contacted. CM updated, and SS/CM will follow up.
--- NOTE | 2020-07-23 11:33 | NUR ---
Dietitian Note/Education Pt referred by Dr. Smith at nursing unit earlier today for diet instruction. RD provided nutrition education. Please see interdisciplinary Teaching Record for details. CAROLYNE, LIZZY
[2020-07-23] MEDS: INSULIN LISPRO SLIDING SCALE 100 UNITS/ML VIAL (humaLOG) SUBCUT PRN ×2 (11:43→17:56)
[2020-07-23] MEDS: cefTRIAXone 1 GM in D5W 50 ML IV SCH (11:44)
[2020-07-23 12:00] VITALS: BP_SYST 127
--- NOTE | 2020-07-23 12:31 | NUR ---
DC PLanning : Discussed HD arrangement with dr. Van, he stated that [facility] is not in network with [facility] and unable to accepted the pt. [facility] continue [facility] care for the pt. I called [facility], said the mentioned HD is in network. Also, provided the in net work HH: [facility] # [phone], [facility] [phone] , and [facility] , [phone]. Addendum: 07/23/20 at 1405 by Leatha Vail RN Hemodialysis set up: faxed referral to [facility], new admission dept # [phone], tel [phone], and to [facility] # [phone], tel # [phone]. I lvm for [facility] to call back to discuss the acceptance , and LVM to [facility] guest service dept/intake # [phone]. [facility] will help contact [facility] to expedite the admission. -- Dr Van made aware. Addendum: 07/23/20 at 1414 by Leatha Vail RN [facility], # [phone], fax# [phone] >> Home health set up: fax referral to [facility] [place] fax# [phone]. pt will need disease management , FWW and continued PT. Addendum: 07/23/20 at 1634 by Leatha Vail RN >> [facility] /per Mitzi: pt is not accepted. no PT staff services. >> [facility] /erika Rueda: no PT license services. unable to accept the pt. >> [facility] ( /old name) [phone]: erika Patel : unable to provide service from this location/[place]. she advised to contact the office # [phone]. -- CM/dcp will process in am.
--- NOTE | 2020-07-23 16:38 | NUR ---
Discharge barriers: 1. HD set up : will need HD tunnel cath, [facility] does not accept [facility] cath. Consultation order for dr. Brennan /tunnel cath placement in am. Per dr. White , can dc pt tomorrow after HD and the tunnel cath placement. 2. has not set up yet/no accepting agency. CM/DCP will f/u in am. 3. Pending CXR r/o TB report , need to send to [facility] tomorrow.
[2020-07-23 16:39] VITALS: BP_SYST 119
--- NOTE | 2020-07-23 17:36 | NUR ---
consultation page Called and SW Dr Peter Quiroz re- hemodialysis access placement. MD will see patient in am
--- NOTE | 2020-07-23 18:32 | NUR ---
Closing Note Patient in bed, resting, A/Ox4, denies complaints at this time. NAD. Bed in low and locked position, side rails up x3, call light within reach. Will endorse care to NOC RN.
--- NOTE | 2020-07-23 19:38 | NUR ---
Zofran Administered Zofran for N/V as ordered
[2020-07-23 20:00] VITALS: BP_SYST 138
--- NOTE | 2020-07-23 20:07 | NUR ---
Opening Note Received patient resting in bed, awake, AOx4 and reporting nausea, nonlabored breathing on room air. IV to RFA is SL. Patient's called me while I'm at bedside to report she is having nausea and I informed I'm with her and will give med. VSS, bed is locked in lowest position, and bed alarm on. She was instructed on use of call light and verbalized understanding. Updated board and reviewed plan of care Addendum: 07/23/20 at 2010 by Milly May RN correction: above time is 1934
--- NOTE | 2020-07-23 20:10 | NUR ---
Opening Note Received patient resting in bed, awake, AOx4 and reporting nausea, nonlabored breathing on room air. IV to RFA is SL. Patient's called me while I'm at bedside to report she is having nausea and I informed I'm with her and will give med. VSS, bed is locked in lowest position, and bed alarm on. She was instructed on use of call light and verbalized understanding. Updated board and reviewed plan of care
--- NOTE | 2020-07-23 20:25 | NUR ---
dinner, no nausea F/U with patient and she reports nausea is under control. She asked for her dinner, which was dropped off by . It was provided and will continue to monitor.
[2020-07-23] MEDS: ZOLPIDEM TARTRATE 5 MG TABLET PO PRN (21:26)
--- NOTE | 2020-07-23 21:31 | NUR ---
Ambien Patient requesting sleeping pill and Ambien given as ordered. Patient resting in bed, covered, wants lights out. Safety measures in place, call light w/in reach and bed alarm on.
--- NOTE | 2020-07-23 22:40 | NUR ---
Dr. Peter Quiroz s/w Dr. Peter Quiroz and confirmed, he wants patient to be NPO starting at breakfast. I transferred him to laundry housekeeper.
--- NOTE | 2020-07-23 22:54 | NUR ---
rounds Patient's B/P is 111/51, HR 83. Held scheduled Apresoline.
--- NOTE | 2020-07-23 23:40 | NUR ---
leads off, resting Patient's telemonitor leads are off; assessed and patient is resting, presently calm, no distress. Call light w/in reach.
[2020-07-24] VITALS: BP_SYST 111
--- NOTE | 2020-07-24 02:22 | NUR ---
Resting Patient is resting w/ eyes closed. Symmetrical rise and fall of chest, non labored breathing noted. Safety precautions maintained.
--- NOTE | 2020-07-24 04:14 | NUR ---
rounds, awake Patient is resting in bed, she is awake and reports she is ok and has no further needs. No s/sx of distress, non labored breathing noted. Safety precautions maintained.
[2020-07-24 05:20] VITALS: BP_SYST 138
[2020-07-24] MEDS: ALBUTEROL SULFATE 0.083% 2.5 MG/3 ML VIAL.NEB INH PRN ×2 (05:30→07:29)
[2020-07-24] MEDS: ONDANSETRON HCL 4 MG/2 ML VIAL IVP PRN ×2 (06:07→21:32)
[2020-07-24] MEDS: hydrALAZINE HCL 25 MG TABLET PO SCH ×3 (06:07→22:00)
[2020-07-24 06:27] LABS: BASOPHILS # (AUTO) 0.1 K/uL (0.0-0.2); BASOPHILS % (AUTO) 0.9 % (0.0-2.0); EOSINOPHILS # (AUTO) 0.3 K/uL (0.0-0.4); EOSINOPHILS % (AUTO) 2.3 % (0.0-4.0); HEMATOCRIT 22.7 % (36-48); HEMOGLOBIN 7.3 g/dL (12.0-16.0); LYMPHOCYTES # (AUTO) 1.9 K/uL (1.0-5.5); LYMPHOCYTES % (AUTO) 16.8 % (20.5-51.5); MEAN CORPUSCULAR HEMOGLOBIN 23 pg (27-31); MEAN CORPUSCULAR HGB CONC 32 % (32-36); MEAN CORPUSCULAR VOLUME 71 fL (79.0-98.0); MONOCYTES # (AUTO) 1.1 K/uL (0.0-1.0); PLATELET COUNT (AUTO) 267 K/uL (130-430); RED BLOOD CELL COUNT(AUTO) 3.21 MIL/uL (4.2-6.2); WHITE BLOOD COUNT (AUTO) 11.4 K/uL (4.8-10.8)
--- NOTE | 2020-07-24 06:30 | NUR ---
closing note Fingerstick gluce doen w/ result of 136 mg/dL; no coverage. She was given Zofran for nasea. She is NPO for procedue and signed consent for tunneled cath placement. She took Hydralazine med with a small sip of water. She is resting in comfortable position, no s/sx of distress and non labored breathing on 2L NC. IV to RFA is SL and safety precautions maintained. Needs met throughout shift, will endorse care to day shift nurse
[2020-07-24 07:06] LABS: CALCIUM 8.1 mg/dL (8.4-11.0); CREATININE 6.45 mg/dL (0.55-1.30); POTASSIUM 3.3 mmol/L (3.5-5.1)
--- NOTE | 2020-07-24 07:30 | NUR ---
Opening Note Report received from NOC RN. Patient found in [facility], A/Ox4, reporting shortness of breath. RT at bedside preparing breathing treatment. Patient is tachypneic breathing at 26 breaths per minute and 98% on room air. Lung sounds diminished in left lower lobe, otherwise clear. Patient denies chest pain at this time. Patient's peripheral IV flushed, patent, saline locked. Bed in low and locked position, side rails up x3, call light within reach.
[2020-07-24 07:55] VITALS: BP_SYST 126
[2020-07-24] MEDS: NEPHROVITE, (FOLIC ACID/VITAMIN B COMP W-C 1 TAB) PO SCH (08:06)
[2020-07-24] MEDS: METOPROLOL TARTRATE 25 MG TABLET PO SCH ×2 (08:06→21:34)
[2020-07-24] MEDS: cloNIDine HCL 0.1 MG TABLET PO SCH ×2 (08:06→21:00)
[2020-07-24] MEDS: CALCIUM ACETATE 667 MG CAP PO SCH ×2 (08:07→12:00)
[2020-07-24] MEDS: FAMOTIDINE 20 MG TABLET PO SCH (08:07)
[2020-07-24] MEDS: SIMETHICONE 80 MG TAB.CHEW PO SCH ×3 (08:07→21:00)
[2020-07-24] MEDS: ALPRAZolam 0.25 MG TABLET PO PRN (08:07)
[2020-07-24] MEDS: MINOXIDIL 10 MG TABLET (LONITEN) PO SCH (08:15)
[2020-07-24] MEDS: DOCUSATE SODIUM 250 MG CAPSULE PO SCH ×2 (08:16→21:00)
--- NOTE | 2020-07-24 08:18 | NUR ---
P.T. NOTES UNABLE TO SEE PATIENT FOR P.T., PATIENT IN OR.
[2020-07-24 08:37] VITALS: BP_SYST 126
--- NOTE | 2020-07-24 09:00 | NUR ---
MD Van page/stat Hemodialysis Spoke with MD Smith, patient still dyspneic and tachypneic. MD Smith requesting stat hemodialysis before surgery. MD Van contacted and stated he would set up dialysis prior to surgery.
--- NOTE | 2020-07-24 09:09 | NUR ---
ATTENDING MD DR LENZ WAS CALLED, RE: ORDER FOR STAT HD. SPOKE TO KOLBY.
--- NOTE | 2020-07-24 10:30 | NUR ---
Dialysis Initiated Patient receiving dialysis, Ana CHU at bedside
--- NOTE | 2020-07-24 10:40 | NUR ---
GENERAL SURGEON DR CRYSTAL STERN WAS CALLED TO INFORM HIM THAT THE TIME HE SCHEDULED PT FOR SURGERY 1@ 12N, PT WILL STILL BE ON STAT HD.
[2020-07-24 12:50] VITALS: BP_SYST 99
[2020-07-24] MEDS ORDERED: HEPARIN SODIUM,PORCINE 5,000 UNITS/ML VIAL ONE ×2 (13:18→20:00)
--- NOTE | 2020-07-24 13:21 | NUR ---
ATTENDING MD DR LENZ WAS CALLED, RE: TB TEST RESULT. SPOKE TO GLORY.
--- NOTE | 2020-07-24 13:30 | NUR ---
Dialysis Completed 2 L removed
--- NOTE | 2020-07-24 13:35 | NUR ---
ID MD DR GEIGER WAS CALLED, RE: CLEARANCE FOR DISCHARGE TO HOME. SPOKE TO
[2020-07-24] MEDS: cefTRIAXone 1 GM in D5W 50 ML IV SCH (14:00)
--- NOTE | 2020-07-24 14:00 | NUR ---
To OR for tunneled hemodialysis catheter placement
--- NOTE | 2020-07-24 14:21 | NUR ---
Discharge Planning: DCP faxed pt referral to a [facility] ([phone]) for wound care and dialysis training. DCP to follow up Addendum: 07/25/20 at 1522 by Liliam RIVERA [facility] ([phone]) does not cover [facility]
--- NOTE | 2020-07-24 14:39 | NUR ---
HD set up: LVM to Trish at [facility], [place], new admission dept # [phone], tel [phone], and to Tylor # [phone], tel # [phone] informed : the CXR r/o TB still need clearance from ID. Family/spouse wants to confirm whether dr. Van is contracted with the HD ctr so that the md can provide the f/u care. >> HH set up: please see Liliam/dcp 's note. >> FWW: spouse/Mohamed will buy own Fww. >> Discussed dc barriers with Brooke RN: to f/u with ID for TB clearance. and DCP to fax the report to Trish at [facility]. : to verify with dr. White if ok to dc pt home and continue HH set up if not done today. (per dr. Van, can dc pt home after HD and HD cath ). Addendum: 07/24/20 at 1558 by Leatha Vail RN >> Per dr. White: dr. Gillis is unable to clear TB for discharge. aware that the HD ctr required TB clearance for HD set up. TB skin test and TB gold result are pending.
[2020-07-24] MEDS ORDERED: POTASSIUM CHLORIDE 10 MEQ TAB.PRT.SR PO ONE (18:00)
--- NOTE | 2020-07-24 18:46 | NUR ---
Closing Note Patient still in OR. Will endorse care to NOC RN.
--- NOTE | 2020-07-24 19:14 | NUR ---
Opening note Received SBAR report from KIMBERLEY Cox. Patient is presently in OR.
--- NOTE | 2020-07-24 19:56 | NUR ---
called Incoming call from patient's , Teofilo. He called to check on and I informed she is still in OR and he replied I can call anytime if need to inform/update.
[2020-07-24] MEDS ORDERED: BUPIVACAINE /PF 0.25% 30 ML VIAL INJ ONE (20:00)
[2020-07-24] MEDS ORDERED: MIDAZOLAM HCL 5 MG/ML VIAL (VERSED) IV ONE (20:00)
[2020-07-24] MEDS ORDERED: LR 1,000 ML IV.SOLN IV ONE (20:00)
[2020-07-24] MEDS ORDERED: NS 50 ML BAG IV ONE (20:00)
[2020-07-24] MEDS ORDERED: LIDOCAINE 1% 10 MG/ML, 20 ML MDV ONE (20:00)
--- NOTE | 2020-07-24 20:43 | NUR ---
Returned from OR Received patient, awake, calm no distress. VSS. Received report from KIMBERLEY Johnson. Bleeding noted on and around Biopatch. KIMBERLEY Johnson changed the dressing and reinforced the new Biopatch with gauze dressing; with use of sterile technique. Patient tolerated, will continue to monitor.
[2020-07-24 20:45] VITALS: BP_SYST 131
--- NOTE | 2020-07-24 21:35 | NUR ---
Meds Due meds given, patient took w/ apple juice and tolerated. Zofran given for nausea, patient is concerned that she will have emesis and prefers to take Zofran. Held clonidine and she refused mylicon and colace.
--- NOTE | 2020-07-24 21:50 | NUR ---
Bleeding noted at catheter dressing Mild bleeding noted on tunneled catheter dressing site. 4 lb weight was placed on site, will continue to monitor.
[2020-07-24] MEDS: ZOLPIDEM TARTRATE 5 MG TABLET PO PRN (22:32)
--- NOTE | 2020-07-24 22:35 | NUR ---
Ambien Patient requested sleeping pill, and Ambien given. She is not comfortable w/weight on right chest
--- NOTE | 2020-07-24 23:15 | NUR ---
Funmilayo Quiroz and Dr David is collection manager. I informed him that there is mild bleeding noted at biopatch site and I have 4 lbs weight. He provided order to place weight on site till AM, he said four pounds is fine.
[2020-07-25 00:10] VITALS: BP_SYST 132
[2020-07-25] MEDS: ALPRAZolam 0.25 MG TABLET PO PRN ×2 (00:58→21:54)
--- NOTE | 2020-07-25 00:58 | NUR ---
Agitated, restless Patient was agitated and very restless. she insists that she can't sleep and wants the weight removed. Charge nurse Jaspreet also s/w her and told her in needs to stay in place. I gave Xanax for anxiety as ordered.
--- NOTE | 2020-07-25 02:30 | NUR ---
sleeping Patient is calm and sleeping, weight is on site, non labored breathing, will continue to monitor.
--- NOTE | 2020-07-25 03:20 | NUR ---
rounds Patient removed weight, it was placed and secured in place again. Will continue to monitor.
--- NOTE | 2020-07-25 04:30 | NUR ---
Patient awake She reports she did removed weight again, and I redirected / re-educated on importance of keeping it in place. She denies pain or nausea and wants to go back to sleep.
[2020-07-25 06:44] LABS: BASOPHILS # (AUTO) 0.1 K/uL (0.0-0.2); BASOPHILS % (AUTO) 0.8 % (0.0-2.0); EOSINOPHILS # (AUTO) 0.1 K/uL (0.0-0.4); HEMATOCRIT 23.7 % (36-48); HEMOGLOBIN 7.6 g/dL (12.0-16.0); LYMPHOCYTES # (AUTO) 1.3 K/uL (1.0-5.5); LYMPHOCYTES % (AUTO) 11.7 % (20.5-51.5); MEAN CORPUSCULAR HEMOGLOBIN 23 pg (27-31); MEAN CORPUSCULAR HGB CONC 32 % (32-36); MEAN CORPUSCULAR VOLUME 71 fL (79.0-98.0); MONOCYTES # (AUTO) 1.1 K/uL (0.0-1.0); MONOCYTES % (AUTO) 9.5 % (1.7-9.3); NEUTROPHILS # (AUTO) 8.8 K/uL (1.8-7.7); PLATELET COUNT (AUTO) 264 K/uL (130-430); RED BLOOD CELL COUNT(AUTO) 3.33 MIL/uL (4.2-6.2); RED CELL DISTRIBUTION WIDTH 17.7 % (9.0-15.0); WHITE BLOOD COUNT (AUTO) 11.4 K/uL (4.8-10.8)
--- NOTE | 2020-07-25 06:50 | NUR ---
awake patient is awake and talking on phone, due med given, fingerstick glucose result of 111 mg/dL.
[2020-07-25] MEDS: hydrALAZINE HCL 25 MG TABLET PO SCH ×3 (06:55→21:53)
--- NOTE | 2020-07-25 06:55 | NUR ---
Dr. Quiroz at bedside Dr Quiroz at bedside to see patient
--- NOTE | 2020-07-25 07:01 | NUR ---
CONSULTATION PAGED/CALLED Reason for Consultation: [] HYPOXIC RESP FAIL Person Who was Notified: [] DR FRY, PAGED DIRECTLY Consulting Physician: [] DR FRY Caser Up Specialty: [] RICHARD Ordering Physician: [] DR LENZ Addendum: 07/25/20 at 0703 by Yanely Costa MT/ ERROR, WRONG PT
[2020-07-25 07:05] LABS: CALCIUM 7.9 mg/dL (8.4-11.0); CREATININE 4.81 mg/dL (0.55-1.30); POTASSIUM 4.3 mmol/L (3.5-5.1)
--- NOTE | 2020-07-25 07:20 | NUR ---
Opening Note Patient report received via SBAR from endorsing RN
[2020-07-25 08:00] VITALS: BP_SYST 138
[2020-07-25] MEDS: CALCIUM ACETATE 667 MG CAP PO SCH ×3 (08:53→17:25)
[2020-07-25] MEDS: NEPHROVITE, (FOLIC ACID/VITAMIN B COMP W-C 1 TAB) PO SCH (08:54)
[2020-07-25] MEDS: DOCUSATE SODIUM 250 MG CAPSULE PO SCH ×2 (08:54→21:54)
[2020-07-25] MEDS: METOPROLOL TARTRATE 25 MG TABLET PO SCH ×2 (08:54→21:00)
[2020-07-25] MEDS: FAMOTIDINE 20 MG TABLET PO SCH (08:54)
[2020-07-25] MEDS: SIMETHICONE 80 MG TAB.CHEW PO SCH ×3 (08:55→21:54)
[2020-07-25] MEDS: cloNIDine HCL 0.1 MG TABLET PO SCH ×2 (08:55→21:00)
[2020-07-25] MEDS: MINOXIDIL 10 MG TABLET (LONITEN) PO SCH (08:55)
--- NOTE | 2020-07-25 09:20 | NUR ---
ROUND Dr. Smith in to see patient, no new orders
--- NOTE | 2020-07-25 10:21 | NUR ---
Discharge Planning: DCP faxed pt referral to [facility] (f [phone] p [phone]) [facility] to follow up. Addendum: 07/25/20 at 1521 by Liliam RIVERA DCP followed up with [facility] (f [phone] p [phone]) , DCP also faxed to [facility] (f [phone] p [phone]) and [facility] / (f [phone] p [phone]) [facility] to follow up.
--- NOTE | 2020-07-25 11:05 | NUR ---
ROUND Dr. March in to see patient, no new orders
[2020-07-25] MEDS: cefTRIAXone 1 GM in D5W 50 ML IV SCH (11:17)
[2020-07-25] MEDS: INSULIN LISPRO SLIDING SCALE 100 UNITS/ML VIAL (humaLOG) SUBCUT PRN ×2 (11:26→17:34)
[2020-07-25 12:08] VITALS: BP_SYST 134
--- NOTE | 2020-07-25 12:50 | NUR ---
ROUND Dr. Van in to see patient, physician entered orders for Hemodialysis for today
--- NOTE | 2020-07-25 13:57 | NUR ---
DISCHARGE PLANNING Spoke with pt @ bedside, agreeable with HD set up @ [facility], informed still waiting on TB Gold results. TB Gold results not in, called & discussed with lab, TB Gold results will not be avail for 48 to 72 hours after received. TB Gold will not be avail today. Spoke with pt's nurse & states PPD was inconclusive need TB Gold results. Updated him that will not get results until earliest tomorrow. Called & left msg with Trish [facility] new admissions, ph [phone], updating & requested call back to make sure there is nothing else needed for acceptance. Also lt msg to confirm Dr Van f/u @ that facility. Addendum: 07/25/20 at 1620 by Mary Andrade RN Received call from Dr White, states TB Gold might come out positive for Latent TB, wants to see if HD Center will take pt if not what HD center will take pt. Received msg from Trish [facility], stating that Dr Van will follow pt there. Wants new HD catheter report faxed to her & can fax TB Gold results when received. Called Trish back & left msg if will be able to take pt if TB Gold Positive. Faxed HD cath report & CXR to her, fax [phone].
--- NOTE | 2020-07-25 14:50 | NUR ---
ROUND Dr. White in to see patient, no new orders
[2020-07-25 16:05] VITALS: BP_SYST 136
--- NOTE | 2020-07-25 17:13 | NUR ---
Nutrition F/U Admitting Diagnosis: Acute Kidney Injury, Uncontrolled Diabetic Medical History Comment: PMHx includes DM with nephropathy and ophthalmopathy, HTN, CKD, B12 and iron deficiency per physician notes. SARS-CoV-2 Ag Rapid 07/14 Negative. Pt will now be on a long-term dialysis program per RD note 07/22/20. Subjective Information: RD met w/ pt at bedside this afternoon. Pt stated she has no appetite, but was able to eat 2 eggs at breakfast and some rice at lunch today. Pt's family also brings foods in for pt in addition to standard meals provided by [facility]. Pt stated she last had a BM yesterday. No c/o N/V/C/D, however, pt reported that she has not been sleeping well. Pt would benefit from addition of CCHO diet. Pt was changed to only renal diet today. Current Diet Order/Nutrition Support: Renal x0 days Pertinent Medications: Reglan, Colace, Insulin, Pepcid, phoslo, Nephrovite Pertinent Labs 07/25/20: BG 131 H, POC BG 179 H, WBC 11.4 H, CRE 4.81 H, WBC 11.4 H Usual Diet At Home: Vegetarian -- eats chicken 2x/week per pt report Skin Integrity Comment: Khurram Score: 18; no skin issues noted upon EMR review Current % PO Fair 63% average x2 meals today Estimated Energy Expenditure (kcals/day) 1710-1995kcal/day (30-35kcal/kg based on IBW for sepsis) Estimated Protein Required (g/day) 57-86g/day (1-1.5g/kg based on IBW for sepsis, ARF) Estimated Fluid Required (l/day) Deferred to MD d/t acute renal failure and CHF Problem/Etiology/Signs/Symptoms Inadequate protein energy intake r/t poor appetite and emotional distress AEB pt with poor PO intake per RN report. *ongoing Altered nutrition related labs r/t renal dysfunction AEB elevated CRE lab values. *ongoing Expected Outcomes/Goals Monitor appetite and PO intakes w/ goal of pt meeting at least 75% of estimated nutritional needs, labs trending WNL, normal GI function, and skin integrity/wt maintenance Dietitian Recommendations * Recommend CCHO, renal diet w/ Nepro BID Follow Up Moderate Risk: F/U in 3-5 days
--- NOTE | 2020-07-25 17:19 | NUR ---
Dietitian Recommendations * Recommend CCHO, renal diet w/ Nepro BID LP, RD Please refer to Nutrition F/U for details.
--- NOTE | 2020-07-25 17:50 | NUR ---
Nursing Note Dialysis nurse at bedside, dialysis started as prescribed
[2020-07-25] MEDS ORDERED: HEPARIN SODIUM,PORCINE 5,000 UNITS/ML VIAL MC ONE (18:00)
--- NOTE | 2020-07-25 19:23 | NUR ---
CLOSING NOTE Patient report given to nightshift RN via SBAR
--- NOTE | 2020-07-25 19:30 | NUR ---
INITIAL NOTES: PT IS ON BED, ALERT, AWAKE, NOT DISTRESS. ON PROCESS OF HEMODIALYSIS, STABLE VITALS IGN, NEEDS ATTENDED AT THIS TIME. WILL FOLLOW-UP.
[2020-07-25 19:42] VITALS: BP_SYST 108
--- NOTE | 2020-07-25 20:47 | NUR ---
HEMODIALYSIS IS FINISH, PT IS STABLE, , NEEDS ATTENDED. SAFETY PRECAUTION IN PLACE.
[2020-07-25 21:45] VITALS: BP_SYST 106
--- NOTE | 2020-07-25 22:00 | NUR ---
resting, quietly, no sob, stable. safety precaution in place.
[2020-07-25] MEDS: ACETAMINOPHEN 500 MG TABLET PO PRN (23:55)
[2020-07-25] MEDS: ZOLPIDEM TARTRATE 5 MG TABLET PO PRN (23:55)
--- NOTE | 2020-07-25 23:58 | NUR ---
pt call for sleeping pill and pain medication, stable vital sign, not distress, explain medication side effects. pt verbalized understanding. safety precaution in place. bed alarm on. needs attended. will follow-up.
[2020-07-26] VITALS: BP_SYST 109
--- NOTE | 2020-07-26 02:00 | NUR ---
sleeping on her side, no sob, not distress, no pain, stable. safety precaution in place. will follow-up.
--- NOTE | 2020-07-26 04:04 | NUR ---
sleeping, comfortable on her side. no sign of pain and discomfort. not distress,no sob. safety precaution in place. will monitor.
[2020-07-26] MEDS: hydrALAZINE HCL 25 MG TABLET PO SCH ×3 (06:05→21:24)
--- NOTE | 2020-07-26 06:10 | NUR ---
PT IS AWAKE, ALERT, BLOOD SUGAR 147, VITAL STABLE. AM MEDICATION TAKEN, NEEDS ATTENDED. SAFETY IN PLACE. WILL MONITOR.
--- NOTE | 2020-07-26 07:26 | NUR ---
closing: pt is resting, no pain, no sob, stable. needs attended the whole shift, antoni light in reach sbar report given to am rn.
[2020-07-26 07:59] VITALS: BP_SYST 120
--- NOTE | 2020-07-26 08:00 | NUR ---
initial notes rec patient awake alert sitting at the edge of the bed eating breakfast. ivl to the right forearm intact. no infiltration noted. resp easy and unlabored. no sob noted. bed to the lowest position and side rails up and locked. call light within reached and knows when to call for assistance. margarette cath to the right upper chest in place.
--- NOTE | 2020-07-26 09:30 | NUR ---
rounds c/o of feeling weak and unable to breath. was observed and vital signs were taken.
[2020-07-26 09:39] LABS: BASOPHILS # (AUTO) 0.1 K/uL (0.0-0.2); EOSINOPHILS # (AUTO) 0.3 K/uL (0.0-0.4); EOSINOPHILS % (AUTO) 2.5 % (0.0-4.0); HEMOGLOBIN 7.5 g/dL (12.0-16.0); LYMPHOCYTES % (AUTO) 16.9 % (20.5-51.5); MEAN CORPUSCULAR HEMOGLOBIN 23 pg (27-31); MEAN CORPUSCULAR HGB CONC 31 % (32-36); MEAN CORPUSCULAR VOLUME 72 fL (79.0-98.0); MONOCYTES # (AUTO) 1.4 K/uL (0.0-1.0); MONOCYTES % (AUTO) 11.9 % (1.7-9.3); NEUTROPHILS # (AUTO) 7.9 K/uL (1.8-7.7); NEUTROPHILS % (AUTO) 67.7 % (40.0-70.0); PLATELET COUNT (AUTO) 275 K/uL (130-430); RED BLOOD CELL COUNT(AUTO) 3.33 MIL/uL (4.2-6.2); RED CELL DISTRIBUTION WIDTH 17.9 % (9.0-15.0); WHITE BLOOD COUNT (AUTO) 11.6 K/uL (4.8-10.8)
[2020-07-26 09:56] LABS: CALCIUM 8.1 mg/dL (8.4-11.0); CREATININE 4.19 mg/dL (0.55-1.30); POTASSIUM 3.3 mmol/L (3.5-5.1)
[2020-07-26] MEDS: SIMETHICONE 80 MG TAB.CHEW PO SCH ×3 (10:02→20:40)
[2020-07-26] MEDS: FAMOTIDINE 20 MG TABLET PO SCH (10:02)
[2020-07-26] MEDS: CALCIUM ACETATE 667 MG CAP PO SCH ×3 (10:02→17:00)
[2020-07-26] MEDS: DOCUSATE SODIUM 250 MG CAPSULE PO SCH ×2 (10:02→20:42)
[2020-07-26] MEDS: NEPHROVITE, (FOLIC ACID/VITAMIN B COMP W-C 1 TAB) PO SCH (10:02)
--- NOTE | 2020-07-26 10:08 | NUR ---
Discharge Planning: DCP followed up with [facility] (f [phone] p [phone]) DCP spoke to Holli she is checing on referral [facility] (f [phone] p [phone]) per Skip no PT staff available [facility]/ (f [phone] p [phone]) phone is not responding DCP to follow up.
--- NOTE | 2020-07-26 10:13 | NUR ---
DC PLANNING TB Gold still pending. Called & left msg for Trish, new admissions @ [facility] ph [phone]. Received msg from pt's Jaealesha Susi, ph [phone], called back & left msg.
[2020-07-26] MEDS: cloNIDine HCL 0.1 MG TABLET PO SCH ×2 (10:15→20:43)
[2020-07-26] MEDS: MINOXIDIL 10 MG TABLET (LONITEN) PO SCH (10:16)
[2020-07-26] MEDS: METOPROLOL TARTRATE 25 MG TABLET PO SCH ×2 (10:17→20:42)
--- NOTE | 2020-07-26 10:35 | NUR ---
rounds due meds were given and luis well. resting quietly at this time.
[2020-07-26 12:13] VITALS: BP_SYST 143
[2020-07-26] MEDS: INSULIN LISPRO SLIDING SCALE 100 UNITS/ML VIAL (humaLOG) SUBCUT PRN ×3 (12:23→20:38)
[2020-07-26] MEDS: cefTRIAXone 1 GM in D5W 50 ML IV SCH (12:26)
--- NOTE | 2020-07-26 12:37 | NUR ---
rounds no hypo hyperglycemic reaction noted. due meds given as ordered. call light within reached.
--- NOTE | 2020-07-26 15:30 | NUR ---
notified dr crouch was notified re tb gold positve. stated will order to be transferred to an isolation room. was taken to her new room via wheelchair. no sob noted. call light within reached.
--- NOTE | 2020-07-26 15:32 | NUR ---
DISCHARGE PLANNING Per dexter Ricketts equipment planner, only home health that will accept is [facility] that states pt out of pocket cost is $2887.99. Called & informed pt's this am & states will get back to me. Later in afternoon spoke with , Rico Goldman [phone], & states does not want home health that pt's sister is coming tomorrow & will assist pt. In am TB Gold results not in. Now TB Gold result back & Positive. Called & informed Trish [facility], ph [phone], & faxed results. States will accept pt but would need to be cleared by ID first. Informed pt's nurse, & was going to inform Dr Sandoval. I called & spoke with Dr White & informed states she will communicate with Dr Sandoval to clear pt so can be set up with HD center. Informed about Home Health, & states if does not want home health is ok. Called & left msg with [facility], if will be accepted for start Wednesday if cleared by ID today, awaiting call back.
[2020-07-26 16:37] VITALS: BP_SYST 140
[2020-07-26] MEDS: EPOETIN ALFA 3,000 UNITS/ML VIAL SUBCUT SCH ×2 (16:58→17:00)
--- NOTE | 2020-07-26 17:00 | NUR ---
rounds no hypo hyperglycemic reaction noted. call light withn reached
[2020-07-26] MEDS ORDERED: POTASSIUM CHLORIDE 10 MEQ TAB.PRT.SR PO ONE (18:00)
--- NOTE | 2020-07-26 19:00 | NUR ---
closing notes pt was moved to negative room in 115 via wheelchair. no sob noted. was seen by dr crouch and dr gonzalez and with orders. call light within reached. bed to the lowest position and side rails up and locked.
--- NOTE | 2020-07-26 19:05 | NUR ---
Late Entry Due to Patient Care Report received from day shift nurse. Pt is resting in bed and very anxious. Pt is on oxygen at 2L/min per NC. No respiratory distress noted. Call light is with pt and bed alarm is on. Skin is warm and dry to touch. No signs or symptoms of hypoglycemia or hyperglycemia noted.
[2020-07-26 20:00] VITALS: BP_SYST 142
--- NOTE | 2020-07-26 20:38 | NUR ---
Accucheck 153 and 2 units Humalog Insulin given SQ. Skin remains warm and dry tot ouch. Pt ate small amount from food brought by her .
[2020-07-26] MEDS: ALPRAZolam 0.25 MG TABLET PO PRN (21:24)
--- NOTE | 2020-07-26 21:45 | NUR ---
RN attempted to connect pt with her via Face Time, but call did not go through after multiple attempts. Pt then called her on her cell phone. Pt stated her does not have I phone, but Android phone.
--- NOTE | 2020-07-26 23:00 | NUR ---
Pt is sleeping without any respiratory distress noted.
[2020-07-27] MEDS: ACETAMINOPHEN 500 MG TABLET PO PRN (03:51)
--- NOTE | 2020-07-27 03:51 | NUR ---
Extra Strength Tylenol 100mg given po for c/o 6/10 abdominal pain. Call light is with pt and bed alarm is on.
--- NOTE | 2020-07-27 04:11 | NUR ---
Patient is resting, back in back after ambulating to commode. No signs of distress noted. Will continue to monitor. Addendum: 07/28/20 at 0719 by Nayeli Grossman RN WRONG TIME, PLEASE DISREGARD
--- NOTE | 2020-07-27 05:30 | NUR ---
RTs Dominique and Yuri notified about inducing sputum for AFB.
[2020-07-27] MEDS: hydrALAZINE HCL 25 MG TABLET PO SCH ×3 (06:00→22:00)
[2020-07-27] MEDS: INSULIN LISPRO SLIDING SCALE 100 UNITS/ML VIAL (humaLOG) SUBCUT PRN ×4 (06:50→20:56)
--- NOTE | 2020-07-27 06:50 | NUR ---
Accucheck 180 and 2 units Humalog Insulin given SQ. Skin remains warm and dry to touch. Call light is with pt and bed alarm is on.
[2020-07-27 07:30] LABS: CALCIUM 8.3 mg/dL (8.4-11.0); CREATININE 5.42 mg/dL (0.55-1.30); POTASSIUM 3.9 mmol/L (3.5-5.1)
--- NOTE | 2020-07-27 07:38 | NUR ---
OPENING NOTE Patient resting in the bed. No acute distress. On O2 2L/min via NC. Skin warm and dry to touch. SL intact to RFA, no redness, no swelling, patent. Shubham cath intact to right upper chest, no bleeding, clean and dry dressing intact. On isolation. Safety measure maintained. Call light within reached. Bed locked in low position, side rails up. Will continue to monitor.
[2020-07-27 07:39] VITALS: BP_SYST 132
[2020-07-27 08:00] VITALS: BP_SYST 139
[2020-07-27] MEDS: SIMETHICONE 80 MG TAB.CHEW PO SCH ×3 (08:25→22:30)
[2020-07-27] MEDS: DOCUSATE SODIUM 250 MG CAPSULE PO SCH ×2 (08:26→22:29)
[2020-07-27] MEDS: cloNIDine HCL 0.1 MG TABLET PO SCH ×2 (08:27→22:28)
[2020-07-27] MEDS: FAMOTIDINE 20 MG TABLET PO SCH (08:27)
[2020-07-27] MEDS: MINOXIDIL 10 MG TABLET (LONITEN) PO SCH (08:28)
[2020-07-27] MEDS: METOPROLOL TARTRATE 25 MG TABLET PO SCH ×2 (08:28→22:28)
[2020-07-27] MEDS: NEPHROVITE, (FOLIC ACID/VITAMIN B COMP W-C 1 TAB) PO SCH (08:28)
[2020-07-27] MEDS: CALCIUM ACETATE 667 MG CAP PO SCH ×3 (08:28→18:10)
--- NOTE | 2020-07-27 08:32 | NUR ---
AM SCHEDULE MED GIVEN, PATIENT TOLERATED WELL.
--- NOTE | 2020-07-27 09:10 | NUR ---
HEMODIALYSIS STARTED Patient resting in the bed. No acute distress. Hemodialysis started. Dialysis nurse at bedside. Safety measure maintained. Call light within reached. Isolation maintained. Continue to monitor.
[2020-07-27] MEDS: ONDANSETRON HCL 4 MG/2 ML VIAL IVP PRN ×2 (10:40→20:56)
--- NOTE | 2020-07-27 11:07 | NUR ---
RECEIVED THE CALL FROM PAULO DESAI TO UPDATE THE PATIENT'S CONDITION.
--- NOTE | 2020-07-27 11:49 | NUR ---
HIGH ALERT NOTE: Called Mohini Marin back at [phone] identified within the medical roster to verify physician authenticity.
[2020-07-27] MEDS ORDERED: SODIUM CL 3% FOR INHALATION 15 ML VIAL.NEB INH ONE (12:00)
--- NOTE | 2020-07-27 12:19 | NUR ---
HEMODIALYSIS COMPLETED Hemodialysis completed with 2200ml out. Patient tolerated well. No acute distress. VS stable. Safety measure maintained. Call light within reached. Isolation maintained. Continue to monitor.
[2020-07-27] MEDS: cefTRIAXone 1 GM in D5W 50 ML IV SCH (12:30)
--- NOTE | 2020-07-27 12:34 | NUR ---
QC=401 Humalog insulin 2 units given per sliding scale as ordered. Safety measure maintained. Dialysis at bedside. Isolation maintained. Call light within reached. Continue to monitor.
--- NOTE | 2020-07-27 12:52 | NUR ---
SEEN AND EXAMINED BY LATASHA LEVIN.
[2020-07-27 13:22] VITALS: BP_SYST 132
--- NOTE | 2020-07-27 15:03 | NUR ---
THE FIRST SPUTUM SAMPLE FOR AFB SENT TO LAB.
--- NOTE | 2020-07-27 16:03 | NUR ---
P.T. NOTES D/C FROM P.T. AFTER TX, ENDORSED TO NURSING; O2 SAT ROOM AIR=96-98% AT REST, 90-91% W/ EXERTION.
--- NOTE | 2020-07-27 18:08 | NUR ---
SEEN AND EXAMINED BY ANA CURRIE.
--- NOTE | 2020-07-27 18:12 | NUR ---
DS=089 Humalog insulin 8 units given per sliding scale as ordered. Safety measure maintained. Call light within reached. Isolation maintained. Continue to monitor.
[2020-07-27 18:29] VITALS: BP_SYST 133
--- NOTE | 2020-07-27 18:48 | NUR ---
CLOSING NOTE Patient resting in the bed. No acute distress. On O2 2L/min via NC. Skin warm and dry to touch. SL intact to RFA, no redness, no swelling, patent. Shubham cath intact to right upper chest, no bleeding, clean and dry dressing intact. On isolation. All needs met. Safety measure maintained. Call light within reached. Bed locked in low position, side rails up. Will endorse to night nurse.
--- NOTE | 2020-07-27 19:25 | NUR ---
OPENING NOTES Patient is resting, no signs of acute respiratory distress noted, 2L NC. IV site patent, dressings c/d/i. Right chest margarette in place. Call light within reach, bed alarm on, bed at lowest position. Received report that first sputum culture was obtained at 1500 with NS induction and patient had received dialysis with 2.2 L out. Isolation precautions in place. Will continue to monitor.
[2020-07-27 20:00] VITALS: BP_SYST 135
[2020-07-27] MEDS: ALPRAZolam 0.25 MG TABLET PO PRN (22:29)
--- NOTE | 2020-07-28 04:15 | NUR ---
Patient is resting, back in back after ambulating to commode. No signs of distress noted. Will continue to monitor.
[2020-07-28] MEDS: hydrALAZINE HCL 25 MG TABLET PO SCH ×3 (04:59→21:35)
--- NOTE | 2020-07-28 05:11 | NUR ---
Sputum sample obtained, asked Respiratory therapist for induced sputum, but patient is alert to cough at this time. Sputum sample sent to lab. Patient is resting, no signs of acute respiratory distress noted. Will continue to monitor.
--- NOTE | 2020-07-28 06:13 | NUR ---
CLOSING NOTES Patient is resting, no signs of acute respiratory distress noted, 2L NC at this time. IV site patent, dressings c/d/i, saline lock. No signs of nausea after medication had been provided. Call light within reach, bed alarm on, bed at lowest position. All needs met throughout shift. will endorse care to oncoming shift. Addendum: 07/28/20 at 0616 by Nayeli Grossman RN Shubham cath at right chest in place, and isolation precaution throughout shift. Addendum: 07/28/20 at 0755 by Nayeli Grossman RN Blood sugar of 210, 4 units of insulin coverage provided, provided patient with apple juice. Will endorse to morning shift.
[2020-07-28] MEDS: INSULIN LISPRO SLIDING SCALE 100 UNITS/ML VIAL (humaLOG) SUBCUT PRN ×4 (06:33→21:27)
[2020-07-28 08:00] VITALS: BP_SYST 157
[2020-07-28] MEDS: MINOXIDIL 10 MG TABLET (LONITEN) PO SCH (10:56)
[2020-07-28] MEDS: CALCIUM ACETATE 667 MG CAP PO SCH ×3 (10:57→18:43)
[2020-07-28] MEDS: DOCUSATE SODIUM 250 MG CAPSULE PO SCH ×2 (10:57→21:23)
[2020-07-28] MEDS: FAMOTIDINE 20 MG TABLET PO SCH (10:58)
[2020-07-28] MEDS: NEPHROVITE, (FOLIC ACID/VITAMIN B COMP W-C 1 TAB) PO SCH (10:58)
[2020-07-28] MEDS: METOPROLOL TARTRATE 25 MG TABLET PO SCH ×2 (10:59→21:24)
[2020-07-28] MEDS: cefTRIAXone 1 GM in D5W 50 ML IV SCH (11:00)
[2020-07-28] MEDS: cloNIDine HCL 0.1 MG TABLET PO SCH ×2 (11:00→21:23)
[2020-07-28] MEDS: ONDANSETRON HCL 4 MG/2 ML VIAL IVP PRN ×2 (11:32→18:43)
[2020-07-28] MEDS: SIMETHICONE 80 MG TAB.CHEW PO SCH ×3 (11:48→21:24)
[2020-07-28 12:00] VITALS: BP_SYST 160
[2020-07-28 17:23] VITALS: BP_SYST 158
[2020-07-28] MEDS: INSULIN NPH/REGULAR 70-30, 100 UNITS/ML, 10 ML VIAL SUBCUT SCH (18:43)
[2020-07-28 19:00] VITALS: BP_SYST 139
--- NOTE | 2020-07-28 19:15 | NUR ---
change of shift.pt.presents isolation status;[place];2/t r/o tb.pt.presents quiescent affect;calm,resting.pt.presents rt.svc;groshong h/d cath.intact;patent dsg clean.pt.presents iv access intact;patent location;rt.hand.pt.receiving the administration o2 therapy via nasal cannulae humidified air. pt.capable to reposition self/ambulate.general status stable.respiratory status slight labored.call light/telephone w/in reach of the pt.
[2020-07-28 20:00] VITALS: BP_SYST 139
--- NOTE | 2020-07-28 20:00 | NUR ---
pt.assessed.v/s assessed values w/in normal limits.note b/p values wnl.no c/o pain,nausea.iv access intact;patent lock.rt.[facility] [place] ashley:h/d cath access intact;patent.i have apprised the pt.that snacks/beverages are available w/in the shfit.pt.presents snacks/beverages from home. general status stable.respiratory status slight labored;02-sat%=96%.pt.capable to reposition self/ambulate.call light/telephone w/in reach of the pt.
--- NOTE | 2020-07-28 20:30 | NUR ---
i have assessed the blood glucose;value 167mg/dl.i have apprised the pt.of the blood glucose value.
--- NOTE | 2020-07-28 21:00 | NUR ---
2100pmedications administered.pt.capable to ingest the po medications w/out difficulty.i have administered insulin;humalog; 2-units per the sliding scale parameters.
[2020-07-28] MEDS: ALBUTEROL SULFATE 0.083% 2.5 MG/3 ML VIAL.NEB INH PRN (21:23)
[2020-07-28] MEDS: ALPRAZolam 0.25 MG TABLET PO PRN (21:25)
--- NOTE | 2020-07-28 21:30 | NUR ---
pt.requested inh treatment.i paged the r/t.apprised the r/t of the pt's requests.r/t had administered the int treatment.
--- NOTE | 2020-07-28 22:00 | NUR ---
pt.assessed.pt.presents quiescent affect;calm,somnolent.per flacc pain mgx pt.absent facial grimaces/body posturing. iv access intact;patent lock.rt.svc groshong cath intact;patent.general status stable.respiratory status stable;02-sat% =96%.pt.capable to reposition self.call light/telephone w/in reach of the pt.
[2020-07-28] MEDS: BENZOCAINE/MENTHOL 1 EACH LOZENGE MM PRN (23:16)
[2020-07-28] MEDS: ZOLPIDEM TARTRATE 5 MG TABLET PO PRN (23:22)
--- NOTE | 2020-07-28 23:30 | NUR ---
had been paged.pt had stated her throat was sore.i apprised of the pt's status. ordered cepacol throat lozenge 1 tab q-4hrs/prn.i have administered cepacol 1 tab.throat lozenge.i apprised the pt.that the cepacol is ordered q-4hrs/prn.pt.had requested medication;sleep.i have administered ambien;10mg po.no additional requests posited@this hour.
[2020-07-29] VITALS (7 sets, daily range): BP systolic 98–139
--- NOTE | 2020-07-29 | NUR ---
pt.assessed.v/s assessed values w/in normal limits.no c/o pain,nausea.no requests posited@this hour.general status stable.respiratory status stabel. o2-sat%=96%.pt.capable to reposition self.call light/telephone w/in reach of the pt.
--- NOTE | 2020-07-29 02:00 | NUR ---
pt.assessed.pt.presents quiescent affect;calm,somnolent.per flacc pain mgx pt.absent facial grimaces/body posturing. pt.capable to reposition self,general status stable.respiratory status stable;02-sat%=96%.call light/telephone w/in access of the pt.
--- NOTE | 2020-07-29 04:00 | NUR ---
pt.assessed.pt.presents quiescent affect;calm,somnolent per flacc pain mgx pt.absent facial grimaces/body posturing. general status stable.respiratory status stable.02-sat%=96%.pt.capable to reposition self.call light/telephone w/in access of the pt.
[2020-07-29] MEDS: ONDANSETRON HCL 4 MG/2 ML VIAL IVP PRN ×3 (05:40→21:31)
[2020-07-29] MEDS: BENZOCAINE/MENTHOL 1 EACH LOZENGE MM PRN ×2 (05:40→22:03)
[2020-07-29] MEDS: hydrALAZINE HCL 25 MG TABLET PO SCH ×3 (06:06→21:30)
[2020-07-29] MEDS: INSULIN LISPRO SLIDING SCALE 100 UNITS/ML VIAL (humaLOG) SUBCUT PRN ×3 (06:09→21:34)
[2020-07-29] MEDS: INSULIN NPH/REGULAR 70-30, 100 UNITS/ML, 10 ML VIAL SUBCUT SCH ×2 (06:10→17:13)
--- NOTE | 2020-07-29 06:30 | NUR ---
pt.assessed.pt.presents quiescent affect;calm,resting.blood glucose assessed;value;215mg/dl.i administered insulin humalog; 4-units per the sliding scale parameters.i administered humulin:70/30:12-units scheduled dose.v/s assessed p/t the administration apresoline:50mg po.i administered the apresoline;50mg po per the b/p values.i administered zofran:4mg ivp 2/t nausea.i administered cepacol lozenge.general status stable.respiratory status stable:02-sat%=98%.pt.capable to reposition self.call light/telephone w/in reach of the pt.
--- NOTE | 2020-07-29 06:30 | NUR ---
pt.assessed.pt.had requested medication;pain.i administered morphine;2mg ivp.pt.assessed for cleanliness.pt.repositioned. iv access intact;patent iv fluids infusing.general status stable.respiratory status stable;unlabored.call light/telephone placed w/in access of the pt. Addendum: 07/29/20 at 0754 by Johnny Rojo RN above note credited to incorrect pt.above note intended for pt.Latanya-vicente.
--- NOTE | 2020-07-29 07:10 | NUR ---
opening note received bedside sbar from night rn, patient in bed, respirations even non labored, bed in low and locked position, call light within reach, iv nasal cannula 2l , ivf's running as ordered, bed alarm on
[2020-07-29] MEDS: DOCUSATE SODIUM 250 MG CAPSULE PO SCH ×2 (08:15→21:28)
[2020-07-29] MEDS: FAMOTIDINE 20 MG TABLET PO SCH (08:15)
[2020-07-29] MEDS: CALCIUM ACETATE 667 MG CAP PO SCH ×3 (08:15→18:48)
[2020-07-29] MEDS: NEPHROVITE, (FOLIC ACID/VITAMIN B COMP W-C 1 TAB) PO SCH (08:15)
[2020-07-29] MEDS: SIMETHICONE 80 MG TAB.CHEW PO SCH ×3 (08:15→21:29)
--- NOTE | 2020-07-29 08:30 | NUR ---
nurse note patient sitting in chair, ivf's running as directed, 2L nasal cannula, administered medications as ordered. patient denies any pain
[2020-07-29] MEDS: METOPROLOL TARTRATE 25 MG TABLET PO SCH ×2 (08:37→21:29)
[2020-07-29] MEDS: MINOXIDIL 10 MG TABLET (LONITEN) PO SCH (08:38)
[2020-07-29] MEDS: cloNIDine HCL 0.1 MG TABLET PO SCH ×2 (08:38→21:28)
--- NOTE | 2020-07-29 10:15 | NUR ---
nurse note dialysis started
[2020-07-29] MEDS: cefTRIAXone 1 GM in D5W 50 ML IV SCH ×2 (11:00→13:41)
--- NOTE | 2020-07-29 12:30 | NUR ---
nurse note dialysis completed, 2.6 L out, patient in bed, respirations even non labored, bed in low and locked position call light within reach
--- NOTE | 2020-07-29 13:00 | NUR ---
nurse note patient complaining of nausea, vomited, small amount, clear. respirations even non labored bed in low and locked position call light within reach Addendum: 07/29/20 at 1943 by Michael Sanchez RN entered incorrect time should be 1500
[2020-07-29] MEDS ORDERED: HEPARIN SODIUM,PORCINE 5,000 UNITS/ML VIAL ONE (13:03)
--- NOTE | 2020-07-29 13:30 | NUR ---
nurse note administered medication, patient sitting in chair, on room air, denies any pain or discomfort.
--- NOTE | 2020-07-29 17:00 | NUR ---
nurse note obtained bs, administered insulin per sliding scale and scheduled insulin, patient sitting in bed, respirations even non labored, bed in low and locked position, call light within reach
[2020-07-29] MEDS: EPOETIN ALFA 3,000 UNITS/ML VIAL SUBCUT SCH (17:15)
--- NOTE | 2020-07-29 19:05 | NUR ---
closing note provided bedside sbar to night RN, patient in bed, respirations even non labored, bed in low and locked position, call light within reach, endorsed sputum culture and care to night RN
--- NOTE | 2020-07-29 19:15 | NUR ---
change of shift.pt.presents isolation status;[facility] r/o tb.pt.has provided #1/3 afb samples.pt.presents rt.svc;ashley velez h/d access. pt.presents iv acces location rt.hand.intact;patent.iv lock.pt.utilizing o2 therapy.pt.stated when she feels it is necessary:o2 therapy administered 2l/min via nasal cannulae.general status stable;respiratory status stable:o2-sat%=98%@room airi.pt.capable to reposition self.call light/telephone w/in access of the pt..
--- NOTE | 2020-07-29 20:00 | NUR ---
pt.assessed.v/s assessed values w/in normal limits.no co pain,nausea.pt.capable to reposition self/ambulate.pt.presents groshong cath:location;rt.svc.intact;patent. iv access intact;patent location rt.hand.intact;patent iv lock.i have apprised the pt.that snacks/beverages are available w/in the shift.no requests posited@this hour.general status stable.respiratory status stable;02-sat%=96%.call light/telephone w/in access of the pt.
--- NOTE | 2020-07-29 20:30 | NUR ---
i have assessed the blood glucose;value;184mg/dl. have apprised the pt.of the blood glucose value.pt.had requested water;warm,toothettes.i have provided the items.
--- NOTE | 2020-07-29 21:00 | NUR ---
2100pmedications administered.pt.capable to ingest the po medications w/out difficulty.i have administered insulin;humlo-units per the sliding scale.no requests posited@this hour.
[2020-07-29] MEDS: ZOLPIDEM TARTRATE 5 MG TABLET PO PRN (21:31)
--- NOTE | 2020-07-29 22:00 | NUR ---
pt.assessed.pt.presents quiescent affect;calm,somnolent.per flacc pain mgx pt.absent facial grimaces/body posturing. general status stable.respiratory status stabel;unlabored 02-sat%=98%.pt.capable to reposition self.call light/telephone w/in acces of the pt.
--- NOTE | 2020-07-30 | NUR ---
pt.assessed.v/s assessed values w/in normal limits.no c/o pain,nausea.general status stable.no requests posited @this hour.pt.capable to reposition self general status stable.respiratory status stable:02-sat%=98%@room air.pt.capable to reposition self.call light/ telephone win access of the pt.
--- NOTE | 2020-07-30 02:00 | NUR ---
pt.assessed.pt.presents quiescent affect;calm,somnolent.per flacc pain mgx pt.absent facial grimaces/body posturing. general status stable.respiratory status stable;unlabored:02-sat%=98%.pt.capable to reposition self.call light/telephone w/in access of the pt.
--- NOTE | 2020-07-30 04:00 | NUR ---
pt.assessed.pt.presents quiescent affect;calm,somnolent.per flacc pain mgx pt.absent facial grimaces/body posturing.pt.capable to reposition self. general status stable,respiratory status stable;unlabored.call light/telephone w/in reach of the pt.
[2020-07-30 06:00] VITALS: BP_SYST 129
--- NOTE | 2020-07-30 06:45 | NUR ---
PT.ASSEsDEd.V/S AsSESsEd.p/t administration apresoline.i have administered apresoline:50mg po 2/t v/s parameters.blood glucose value;177mg/dl.i have administered humalog;2-units per the sliding scale.i have administered humulin;70/30 15 units scheduled.i have weighed the pt. 2/t hemo-dialysis,chf. general status stable.respiratory status stable;unlabored.no c/o pain,nausea.call light/telephone w/in reach of the pt.
[2020-07-30] MEDS: hydrALAZINE HCL 25 MG TABLET PO SCH ×3 (06:49→22:00)
[2020-07-30] MEDS: INSULIN LISPRO SLIDING SCALE 100 UNITS/ML VIAL (humaLOG) SUBCUT PRN ×2 (06:51→16:31)
[2020-07-30] MEDS: INSULIN NPH/REGULAR 70-30, 100 UNITS/ML, 10 ML VIAL SUBCUT SCH ×2 (06:53→16:29)
--- NOTE | 2020-07-30 07:05 | NUR ---
opening note received bedside sbar from night RN, patient in bed, respirations even, non labored, bed in low and locked position call light within reach
[2020-07-30 08:00] VITALS: BP_SYST 130
--- NOTE | 2020-07-30 08:00 | NUR ---
nurse note obtained VS, patient in bed, respirations even, non labored, bed in low and locked position, call light within reach
[2020-07-30] MEDS: FAMOTIDINE 20 MG TABLET PO SCH (09:00)
[2020-07-30] MEDS: CALCIUM ACETATE 667 MG CAP PO SCH ×3 (09:00→18:17)
[2020-07-30] MEDS: NEPHROVITE, (FOLIC ACID/VITAMIN B COMP W-C 1 TAB) PO SCH (09:01)
[2020-07-30] MEDS: DOCUSATE SODIUM 250 MG CAPSULE PO SCH ×2 (09:01→20:35)
[2020-07-30] MEDS: SIMETHICONE 80 MG TAB.CHEW PO SCH ×3 (09:01→20:35)
[2020-07-30] MEDS: cloNIDine HCL 0.1 MG TABLET PO SCH ×2 (09:01→20:35)
[2020-07-30] MEDS: MINOXIDIL 10 MG TABLET (LONITEN) PO SCH (09:02)
[2020-07-30] MEDS: METOPROLOL TARTRATE 25 MG TABLET PO SCH ×2 (09:02→20:35)
[2020-07-30] MEDS: ONDANSETRON HCL 4 MG/2 ML VIAL IVP PRN ×2 (09:17→20:36)
[2020-07-30 09:30] VITALS: BP_SYST 130
--- NOTE | 2020-07-30 10:20 | NUR ---
nurse note spoke with Dr. White, new orders received, spoke with Elaine, she will input new orders.
--- NOTE | 2020-07-30 10:30 | NUR ---
nurse note patient complained of nausea, vomited 30ml, food remnants, patient requesting medication
[2020-07-30] MEDS ORDERED: SODIUM CL 3% FOR INHALATION 15 ML VIAL.NEB INH ONE (11:00)
[2020-07-30 12:00] VITALS: BP_SYST 132
--- NOTE | 2020-07-30 12:00 | NUR ---
nurse note obtained VS and BS, patient in bed, respirations even, non labored, bed in low and locked position call light within reach, denies any pain or discomfort
--- NOTE | 2020-07-30 13:15 | NUR ---
NURSE NOTE PATIENT IN BED, RESPIRATIONS EVEN, NON LABORED, BED IN LOW AND LOCKED POSITION, CALL LIGHT WITHIN REACH
[2020-07-30] MEDS: METOCLOPRAMIDE HCL 10 MG/2 ML VIAL IVP PRN (13:25)
--- NOTE | 2020-07-30 15:00 | NUR ---
NURSE NOTE ADMINISTERED MEDICATIONS, PATIENT COMPLAINS OF NAUSEA, NO FURTHER VOMITING SINCE THIS MORNING, APPLIED COOL COMPRESS TO FOREHEAD, LOWERED LIGHTS, BED IN LOW AND LOCKED POSITION, CALL LIGHT WITHIN REACH
[2020-07-30 16:00] VITALS: BP_SYST 132
[2020-07-30] MEDS: METOCLOPRAMIDE HCL 10 MG/2 ML VIAL IVP SCH (16:25)
--- NOTE | 2020-07-30 17:00 | NUR ---
NURSE NOTE OBTAINED BS, ADMINISTERED MEDICATIONS AND INSULIN PER SLIDING SCALE AND SCHEDULED ORDERED. PATIENT DENIES ANY PAIN OR DISCOMFORT, CHANGED LINENS, BED IN LOW AND LOCKED POSITION, CALL LIGHT WITHIN REACH
[2020-07-30 18:07] LABS: BASOPHILS # (AUTO) 0.1 K/uL (0.0-0.2); BASOPHILS % (AUTO) 0.8 % (0.0-2.0); EOSINOPHILS # (AUTO) 0.2 K/uL (0.0-0.4); EOSINOPHILS % (AUTO) 1.5 % (0.0-4.0); HEMOGLOBIN 7.6 g/dL (12.0-16.0); LYMPHOCYTES % (AUTO) 16.4 % (20.5-51.5); MEAN CORPUSCULAR HEMOGLOBIN 23 pg (27-31); MEAN CORPUSCULAR HGB CONC 32 % (32-36); MEAN CORPUSCULAR VOLUME 72 fL (79.0-98.0); MONOCYTES # (AUTO) 1.4 K/uL (0.0-1.0); MONOCYTES % (AUTO) 11.8 % (1.7-9.3); NEUTROPHILS # (AUTO) 8.5 K/uL (1.8-7.7); NEUTROPHILS % (AUTO) 69.5 % (40.0-70.0); PLATELET COUNT (AUTO) 343 K/uL (130-430); RED BLOOD CELL COUNT(AUTO) 3.34 MIL/uL (4.2-6.2); WHITE BLOOD COUNT (AUTO) 12.2 K/uL (4.8-10.8)
[2020-07-30 18:22] LABS: ALBUMIN 2.6 g/dL (3.4-4.8); CALCIUM 8.9 mg/dL (8.4-11.0); CREATININE 4.89 mg/dL (0.55-1.30); POTASSIUM 3.5 mmol/L (3.5-5.1); TOTAL BILIRUBIN 0.3 mg/dL (0.0-1.0)
--- NOTE | 2020-07-30 18:30 | NUR ---
nurse note provided patient with dinner tray, patients states that her will be bringing her dinner and does not want tray, bed in low and locked position, call light within reach,
--- NOTE | 2020-07-30 19:05 | NUR ---
CLOSING NOTE PROVIDED BEDSIDE SBAR TO NIGHT RN, PATIENT IN BED, RESPIRATIONS EVEN, NON LABORED, BED IN LOW AND LOCKED POSITION CALL LIGHT WITHIN REACH, ENDORSED CARE TO NIGHT RN
--- NOTE | 2020-07-30 19:20 | NUR ---
OPENING NOTE PATIENT AWAKE, PATIENT AOX4. NO SIGNS OF RESPIRATORY DISTRESS AND DISCOMFORT NOTED. BREATHING EVEN AND UNLABORED. ON ROOM AIR, TOLERATING WELL O2 SATURATION OF 100%. DYSPNEA UPON EXERTION IS NOTED, PATIENT WAS EDUCATED TO DO BREATHING EXERCISE, PATIENT DEMONSTRATED PROPER BREATHING EXERCISE AND VERBALIZED UNDERSTANDING, PATIENT VERBALIZED THAT SHE USE 2L OF OXYGEN VIA NASAL CANULA WHEN NEEDED. PATIENT VITAL SIGNS TAKEN AND RECORDED. PATIENT WAS EDUCATED TO CALL PRIMARY NURSE, WHEN EXPERIENCING SHORTNESS OF BREATH, PATIENT VERBALIZED UNDERSTANDING. IV SITE, PATENCY NOTED. CALL LIGHT WITHIN REACH. PATIENT WAS EDUCATED TO USE CALL LIGHT WHEN ASSISTANCE IS NEEDED. PATIENT ABLE TO VERBALIZED UNDERSTANDING. BED LOCKED AND IN LOWEST POSITION. SAFETY AND ISOLATION PRECAUTIONS IN PLACE. BED ALARM ON. WILL CONTINUE TO MONITOR PATIENT.
[2020-07-30 20:00] VITALS: BP_SYST 136
--- NOTE | 2020-07-30 20:36 | NUR ---
MED PASS/LW=756 DUE MEDICATION WAS GIVEN AT THIS TIME. BS 129, NO COVERAGE NEEDED. PATIENT WAS EDUCATED ON MEDICATION THAT WAS GIVEN FOR ITS PURPOSE, SIDE EFFECT AND BENEFITS. PATIENT ABLE TO VERBALIZED UNDERSTANDING. CALL LIGHT WITHIN REACH. NEEDS ATTENDED. SAFETY AND SOLATION PRECAUTIONS IN PLACE. WILL CONTINUE TO MONITOR PATIENT.
[2020-07-30] MEDS: ZOLPIDEM TARTRATE 5 MG TABLET PO PRN (23:53)
--- NOTE | 2020-07-30 23:53 | NUR ---
VITAL SIGNS/ AMBIEN VITAL SIGNS TAKEN AND WILL BE RECORDED. PATIENT REQUEST MEDICATION THAT WILL HELP HER SLEEP TONIGHT. PRN FOR INSOMNIA WAS GIVEN PER ORDER. PATIENT WAS EDUCATED ON MEDICATION THAT WAS GIVEN FOR ITS PURPOSE, SIDE EFFECT AND BENEFITS. PATIENT ABLE TO VERBALIZED UNDERSTANDING. ON BREATHING TREATMENT, SPUTUM WAS COLLECTED BY RT. NO SIGNS OF RESPIRATORY DISTRESS AND DISCOMFORT NOTED. BREATHING EVEN AND UNLABORED. NEEDS ATTENDED. CALL LIGHT WITHIN REACH. SAFETY AND ISOLATION PRECAUTIONS IN PLACE. WILL CONTINUE TO MONITOR PATIENT
[2020-07-31] VITALS: BP_SYST 110
--- NOTE | 2020-07-31 02:34 | NUR ---
RN ROUNDS PATIENT ASLEEP AT THIS TIME. NO SIGNS OF RESPIRATORY DISTRESS AND DISCOMFORT NOTED. BREATHING EVEN AND UNLABORED. ON ROOM AIR, TOLERATING WELL. CALL LIGHT WITHIN REACH. SAFETY AND ISOLATION PRECAUTIONS IN PLACE. WILL CONTINUE TO MONITOR PATIENT
[2020-07-31] MEDS: INSULIN NPH/REGULAR 70-30, 100 UNITS/ML, 10 ML VIAL SUBCUT SCH ×2 (06:09→16:33)
[2020-07-31] MEDS: METOCLOPRAMIDE HCL 10 MG/2 ML VIAL IVP SCH ×3 (06:10→16:30)
[2020-07-31] MEDS: hydrALAZINE HCL 25 MG TABLET PO SCH ×2 (06:11→14:30)
--- NOTE | 2020-07-31 06:37 | NUR ---
CLOSING NOTE/ BS 122 PATIENT AWAKE, LYING IN BED. NO SIGNS OF RESPIRATORY DISTRESS NOTED. BREATHING EVEN AND UNLABORED. ON ROOM AIR,TOLERATING WELL. IV SITE, PATENCY NOTED. BS 122, NO COVERAGE NEEDED AT THIS TIME. CALL LIGHT WITHIN REACH. SAFETY AND ISOLATION PRECAUTIONS IN PLACE. ALL NEEDS MET THROUGHOUT THE SHIFT. WILL CONTINUE TO MONITOR PATIENT UNTIL ENDORSE TO ONCOMING SHIFT NURSE FOR CONTINUITY OF CARE.
[2020-07-31 07:16] LABS: BASOPHILS # (AUTO) 0.1 K/uL (0.0-0.2); BASOPHILS % (AUTO) 1.2 % (0.0-2.0); EOSINOPHILS # (AUTO) 0.3 K/uL (0.0-0.4); EOSINOPHILS % (AUTO) 2.6 % (0.0-4.0); HEMATOCRIT 22.3 % (36-48); HEMOGLOBIN 7.3 g/dL (12.0-16.0); LYMPHOCYTES # (AUTO) 2.1 K/uL (1.0-5.5); LYMPHOCYTES % (AUTO) 20.3 % (20.5-51.5); MEAN CORPUSCULAR HEMOGLOBIN 23 pg (27-31); MEAN CORPUSCULAR HGB CONC 33 % (32-36); MEAN CORPUSCULAR VOLUME 71 fL (79.0-98.0); MONOCYTES # (AUTO) 1.4 K/uL (0.0-1.0); MONOCYTES % (AUTO) 13.4 % (1.7-9.3); NEUTROPHILS # (AUTO) 6.4 K/uL (1.8-7.7); NEUTROPHILS % (AUTO) 62.5 % (40.0-70.0); PLATELET COUNT (AUTO) 297 K/uL (130-430); RED BLOOD CELL COUNT(AUTO) 3.14 MIL/uL (4.2-6.2); RED CELL DISTRIBUTION WIDTH 18.1 % (9.0-15.0); WHITE BLOOD COUNT (AUTO) 10.3 K/uL (4.8-10.8)
[2020-07-31 08:00] VITALS: BP_SYST 131
[2020-07-31 08:04] LABS: ALBUMIN 2.3 g/dL (3.4-4.8); CALCIUM 8.1 mg/dL (8.4-11.0); CREATININE 5.35 mg/dL (0.55-1.30); POTASSIUM 3.7 mmol/L (3.5-5.1); TOTAL BILIRUBIN 0.3 mg/dL (0.0-1.0)
[2020-07-31] MEDS: DOCUSATE SODIUM 250 MG CAPSULE PO SCH ×2 (08:50→22:11)
[2020-07-31] MEDS: SIMETHICONE 80 MG TAB.CHEW PO SCH ×3 (08:50→22:09)
[2020-07-31] MEDS: FAMOTIDINE 20 MG TABLET PO SCH (08:50)
[2020-07-31] MEDS: CALCIUM ACETATE 667 MG CAP PO SCH ×3 (08:51→16:41)
[2020-07-31] MEDS: NEPHROVITE, (FOLIC ACID/VITAMIN B COMP W-C 1 TAB) PO SCH (08:51)
[2020-07-31] MEDS: cloNIDine HCL 0.1 MG TABLET PO SCH ×2 (08:55→22:11)
[2020-07-31] MEDS: MINOXIDIL 10 MG TABLET (LONITEN) PO SCH (08:56)
[2020-07-31] MEDS: METOPROLOL TARTRATE 25 MG TABLET PO SCH ×2 (08:56→22:12)
[2020-07-31] MEDS ORDERED: HEPARIN SODIUM,PORCINE 5,000 UNITS/ML VIAL ONE ×2 (09:52→10:03)
[2020-07-31 12:36] VITALS: BP_SYST 123
[2020-07-31] MEDS: INSULIN LISPRO SLIDING SCALE 100 UNITS/ML VIAL (humaLOG) SUBCUT PRN (16:36)
[2020-07-31] MEDS: EPOETIN ALFA 3,000 UNITS/ML VIAL SUBCUT SCH (16:41)
[2020-07-31 16:45] VITALS: BP_SYST 146
--- NOTE | 2020-07-31 18:19 | NUR ---
patient hemodialysis done output 2,600ml patient tolerated
--- NOTE | 2020-07-31 19:18 | NUR ---
OPENING NOTE PATIENT SITTING IN BED, PATIENT HAS NO SIGNS OF RESPIRATORY DISTRESS AND DISCOMFORT NOTED. BREATHING EVEN AND UNLABORED. ON ROOM AIR, TOLERATING WELL O2 SATURATION OF 100%. IV SITE, PATENCY NOTED. CALL LIGHT WITHIN REACH. PATIENT WAS EDUCATED TO USE CALL LIGHT WHEN ASSISTANCE IS NEEDED. PATIENT ABLE TO VERBALIZED UNDERSTANDING. BED LOCKED AND IN LOWEST POSITION. NEEDS ATTENDED. SAFETY AND ISOLATION PRECAUTIONS IN PLACE. BED ALARM ON. WILL CONTINUE TO MONITOR PATIENT.
--- NOTE | 2020-07-31 19:41 | NUR ---
Nutrition F/U Admitting Diagnosis: Acute Kidney Injury, Uncontrolled Diabetic Medical History Comment: PMHx includes DM with nephropathy and ophthalmopathy, HTN, CKD, B12 and iron deficiency per physician notes. SARS-CoV-2 Ag Rapid 07/14 Negative. Pt will now be on a long-term dialysis program per RD note 07/22/20. Quantiferon Gold (+) on 07/25. Subjective Information: RD visit has been deferred to conserve PPE as pt is now on isolation for TB. Per chart review, pt is on room air, avg intake about 50% x 9 meals, noted pt ate 100% of breakfast and lunch today. RD s/w FNS director and diet aides who report pt is drinking both of her Nepros and her food preferences are already on file. Per last RD F/U, pt is also receiving food from home. Pt had HD today with 2.6L output. Food preferences are on file, will continue current diet regimen. Encourage PO intake as tolerated. Current Diet Order/Nutrition Support: Renal Standard, Standard Carb, 60gm + Nepro BID x 5 days Pertinent Medications: Reglan, Colace, Insulin, Pepcid, Phoslo, Nephrovite Pertinent Labs 07/31: Na 129L, K 3.7, BUN 17, Cr 5.35H, eGFR 11, Glu 121H, POC BS 128H, 202H Usual Diet At Home: Vegetarian -- eats chicken 2x/week per pt report Skin Integrity Comment: Khurram Score: 18; no skin issues noted upon EMR review Current % PO Fair 50% average x6 meals Estimated Energy Expenditure (kcals/day) 1710-1995kcal/day (30-35kcal/kg based on IBW for sepsis) Estimated Protein Required (g/day) 57-86g/day (1-1.5g/kg based on IBW for sepsis, ARF) Estimated Fluid Required (l/day) Deferred to MD d/t acute renal failure and CHF Problem/Etiology/Signs/Symptoms Inadequate protein energy intake r/t poor appetite and emotional distress AEB pt with poor PO intake per RN report. *ongoing Altered nutrition related labs r/t renal dysfunction AEB elevated CRE lab values. *ongoing Expected Outcomes/Goals Monitor appetite and PO intakes w/ goal of pt meeting at least 75% of estimated nutritional needs, labs trending WNL, normal GI function, and skin integrity/wt maintenance Dietitian Recommendations * Continue CCHO, renal diet w/ Nepro BID * Continue to honor food preferences as able * Encourage PO intake as tolerated * Continue Nephro-anoop coverage Follow Up Moderate Risk: F/U in 3-5 days
--- NOTE | 2020-07-31 19:43 | NUR ---
Dietitian Recommendations * Continue CCHO, renal diet w/ Nepro BID * Continue to honor food preferences as able * Encourage PO intake as tolerated * Continue Nephro-anoop coverage Please see Nutrition F/U for further details. LT, RD
[2020-07-31 20:00] VITALS: BP_SYST 152
[2020-07-31] MEDS: ALBUTEROL SULFATE 0.083% 2.5 MG/3 ML VIAL.NEB INH PRN (21:52)
--- NOTE | 2020-07-31 22:22 | NUR ---
MED PASS/KW=180 DUE MEDICATION WAS GIVEN AT THIS TIME. BS 114, NO COVERAGE NEEDED AT THIS TIME. PATIENT WAS EDUCATED ON MEDICATION THAT WAS GIVEN FOR ITS PURPOSE, SIDE EFFECT AND BENEFITS. PATIENT ABLE TO VERBALIZED UNDERSTANDING. DENIES PAIN AND DISCOMFORT. CALL LIGHT WITHIN REACH. NEEDS ATTENDED. SAFETY AND SOLATION PRECAUTIONS IN PLACE. WILL CONTINUE TO MONITOR PATIENT.
[2020-08-01] VITALS: BP_SYST 128; BP_SYST 138
[2020-08-01] MEDS: ZOLPIDEM TARTRATE 5 MG TABLET PO PRN (00:15)
[2020-08-01] MEDS: hydrALAZINE HCL 25 MG TABLET PO SCH ×4 (00:15→20:46)
--- NOTE | 2020-08-01 00:15 | NUR ---
VITAL SIGNS VITAL SIGNS TAKEN AT THIS TIME, PATIENT REQUEST MEDICATION THAT WILL HELP HER SLEEP TONIGHT. PRN FOR INSOMNIA WAS GIVEN PER ORDER. NO SIGNS OF RESPIRATORY DISTRESS AND DISCOMFORT NOTED. BREATHING EVEN AND UNLABORED. CALL LIGHT WITHIN REACH. SAFETY AND ISOLATION PRECAUTIONS IN PLACE. WILL CONTINUE TO MONITOR PATIENT
[2020-08-01] MEDS: METOCLOPRAMIDE HCL 10 MG/2 ML VIAL IVP SCH ×3 (06:15→16:45)
[2020-08-01] MEDS: INSULIN NPH/REGULAR 70-30, 100 UNITS/ML, 10 ML VIAL SUBCUT SCH ×2 (06:20→16:49)
--- NOTE | 2020-08-01 07:01 | NUR ---
CLOSING NOTE/ BS 125 PATIENT AWAKE, LYING IN BED. NO SIGNS OF RESPIRATORY DISTRESS NOTED. BREATHING EVEN AND UNLABORED. ON ROOM AIR,TOLERATING WELL. IV SITE, PATENCY NOTED. BS 125, NO COVERAGE NEEDED AT THIS TIME. CALL LIGHT WITHIN REACH. SAFETY AND ISOLATION PRECAUTIONS IN PLACE. ALL NEEDS MET THROUGHOUT THE SHIFT. ENDORSE TO KIMBERLEY DEJESUS FOR CONTINUITY OF CARE.
[2020-08-01 08:00] VITALS: BP_SYST 126
[2020-08-01] MEDS: SIMETHICONE 80 MG TAB.CHEW PO SCH ×3 (08:08→20:46)
[2020-08-01] MEDS: NEPHROVITE, (FOLIC ACID/VITAMIN B COMP W-C 1 TAB) PO SCH (08:09)
[2020-08-01] MEDS: MINOXIDIL 10 MG TABLET (LONITEN) PO SCH (08:09)
[2020-08-01] MEDS: CALCIUM ACETATE 667 MG CAP PO SCH ×3 (08:09→16:45)
[2020-08-01] MEDS: METOPROLOL TARTRATE 25 MG TABLET PO SCH ×2 (08:09→20:46)
[2020-08-01] MEDS: FAMOTIDINE 20 MG TABLET PO SCH (08:09)
[2020-08-01] MEDS: cloNIDine HCL 0.1 MG TABLET PO SCH ×2 (08:10→20:45)
[2020-08-01] MEDS: ONDANSETRON HCL 4 MG/2 ML VIAL IVP PRN ×2 (08:10→13:41)
[2020-08-01] MEDS: DOCUSATE SODIUM 250 MG CAPSULE PO SCH ×2 (08:10→20:45)
[2020-08-01 13:33] VITALS: BP_SYST 122
[2020-08-01] MEDS: ALPRAZolam 0.25 MG TABLET PO PRN (14:16)
[2020-08-01] MEDS: INSULIN LISPRO SLIDING SCALE 100 UNITS/ML VIAL (humaLOG) SUBCUT PRN (16:48)
[2020-08-01 17:28] VITALS: BP_SYST 134
--- NOTE | 2020-08-01 18:31 | NUR ---
PATIENT IN THE MORNING CONTINUE NAUSEA AND VOMITING AND SEVERE ANXIETY XANAX MEDICATION GIVEN PER MAR WILL CONTINUE MONITORING
--- NOTE | 2020-08-01 19:30 | NUR ---
OPENING NOTE PATIENT SITTING IN BED, AOX4. NO SIGNS OF RESPIRATORY DISTRESS NOTED. RESPIRATIONS EVEN AND UNLABORED ON ROOM AIR. TOLERATING WELL O2 SATURATION OF 100%. IV SITE, PATENCY NOTED. VALERI CATHETER NOTED TO RIGHT UPPER CHEST. IN PLACE AND INTACT. AIRBORNE ISOLATION PRECAUTIONS IN PLACE, SAFETY MEASURES IN PLACE. BED LOCKED IN LOW POSITION WITH CALL LI GHT IN REACH. PATIENT WAS EDUCATED TO USE CALL LIGHT WHEN ASSISTANCE IS NEEDED. WILL CONTINUE TO MONITOR PATIENT.
[2020-08-01 20:00] VITALS: BP_SYST 150
[2020-08-02] VITALS: BP_SYST 145
--- NOTE | 2020-08-02 | NUR ---
RN ROUNDS PATIENT AWAKE IN BED, APPEARS ANXIOUS. PATIENT REFUSES XANAX AT THIS TIME. COMPLAINS OF SOB, APPLIED O2 2LPM VIA NC, PULSE OXYGENATION 99%. WILL CONTINUE TO MONITOR.
[2020-08-02] MEDS: METOCLOPRAMIDE HCL 10 MG/2 ML VIAL IVP SCH ×2 (05:01→11:23)
[2020-08-02] MEDS: INSULIN NPH/REGULAR 70-30, 100 UNITS/ML, 10 ML VIAL SUBCUT SCH ×2 (05:17→17:00)
[2020-08-02] MEDS: hydrALAZINE HCL 25 MG TABLET PO SCH ×2 (05:32→14:00)
--- NOTE | 2020-08-02 06:50 | NUR ---
RN ROUNDS PATIENT AWAKE IN BED, SITTING UP COMPLAINING OF MIDCHEST PAIN AND HEARTBURN. WILL NOTIFY MD.
[2020-08-02 06:53] VITALS: BP_SYST 161
--- NOTE | 2020-08-02 06:56 | NUR ---
PAGED PAGED SARY PIZARRO AT [phone] SPOKE WITH
--- NOTE | 2020-08-02 06:58 | NUR ---
CLOSING NOTES SPOKE WITH DR LENZ REGARDING PATIENTS COMPLAINTS OF HEARTBURN AND CHEST PAIN. ORDERS RECEIVED AND CARRIED OUT. PATIENT AWAKE IN BED. RESPIRATIONS EVEN AND UNLABORED ON OXYGEN 2LPM VIA NC. PULSE OX 100%. IV REMAINS PATENT AND INTACT. VALERI CATH IN PLACE AND INTACT. ISOLATION PRECAUTIONS REMAIN IN PLACE. SAFETY MEASURES IN PLACE. BED LOCKED IN LOW POSITION. CALL LIGHT IN REACH. WILL CONTINUE TO MONITOR UNTIL ENDORSED CARE TO AM NURSE.
[2020-08-02] MEDS: ALPRAZolam 0.25 MG TABLET PO PRN (07:09)
[2020-08-02 08:00] VITALS: BP_SYST 154
--- NOTE | 2020-08-02 08:01 | NUR ---
CONSULTATION PAGED REASON FOR CONSULTATION:CONSISTENT NAUSEA,VOMITING, DM WAS CONSULT CALLED?Y PERSON WHO WAS NOTIFIED:KOLBY CONSULTING PHYSICIAN:LOLY BONILLA RELISH BLENDER SPECIALTY:GI RELISH BLENDER PHONE NUMBER:[phone] ORDERING PHYSICIAN:SARY PIZARRO
[2020-08-02 08:59] LABS: BASOPHILS # (AUTO) 0.1 K/uL (0.0-0.2); BASOPHILS % (AUTO) 0.7 % (0.0-2.0); EOSINOPHILS # (AUTO) 0.1 K/uL (0.0-0.4); EOSINOPHILS % (AUTO) 0.9 % (0.0-4.0); HEMATOCRIT 24.1 % (36-48); HEMOGLOBIN 7.6 g/dL (12.0-16.0); LYMPHOCYTES # (AUTO) 1.5 K/uL (1.0-5.5); LYMPHOCYTES % (AUTO) 11.4 % (20.5-51.5); MEAN CORPUSCULAR HEMOGLOBIN 23 pg (27-31); MEAN CORPUSCULAR HGB CONC 32 % (32-36); MEAN CORPUSCULAR VOLUME 72 fL (79.0-98.0); MONOCYTES # (AUTO) 1.4 K/uL (0.0-1.0); PLATELET COUNT (AUTO) 318 K/uL (130-430); RED BLOOD CELL COUNT(AUTO) 3.36 MIL/uL (4.2-6.2); RED CELL DISTRIBUTION WIDTH 17.7 % (9.0-15.0); WHITE BLOOD COUNT (AUTO) 13.2 K/uL (4.8-10.8)
[2020-08-02] MEDS: DOCUSATE SODIUM 250 MG CAPSULE PO SCH ×2 (09:00→20:37)
[2020-08-02 09:17] LABS: CALCIUM 7.9 mg/dL (8.4-11.0); CREATININE 4.6 mg/dL (0.55-1.30); POTASSIUM 4.3 mmol/L (3.5-5.1)
[2020-08-02] MEDS: CALCIUM ACETATE 667 MG CAP PO SCH ×3 (09:25→18:23)
[2020-08-02] MEDS: SIMETHICONE 80 MG TAB.CHEW PO SCH ×3 (09:25→20:38)
[2020-08-02] MEDS: FAMOTIDINE 20 MG TABLET PO SCH (09:27)
[2020-08-02] MEDS: MINOXIDIL 10 MG TABLET (LONITEN) PO SCH (09:27)
[2020-08-02] MEDS: METOPROLOL TARTRATE 25 MG TABLET PO SCH ×2 (09:27→20:38)
[2020-08-02] MEDS: cloNIDine HCL 0.1 MG TABLET PO SCH ×2 (09:28→20:37)
[2020-08-02] MEDS: NEPHROVITE, (FOLIC ACID/VITAMIN B COMP W-C 1 TAB) PO SCH (09:28)
[2020-08-02 10:10] VITALS: BP_SYST 130
--- NOTE | 2020-08-02 10:35 | NUR ---
Patient is in bed resting. Patient is on 2L of O2 via nasal cannula. Patient is alert and oriented x4. Patient denies pain, distress and shortness of breath. Patient is cooperative with care but displays signs of depression. AM care needs met. Spoke with father about possible discharged. Homeostasis maintained at baseline. Bed in low position. Call light in reach. Will give report to night nurse.
[2020-08-02] MEDS: INSULIN LISPRO SLIDING SCALE 100 UNITS/ML VIAL (humaLOG) SUBCUT PRN (11:22)
--- NOTE | 2020-08-02 11:53 | NUR ---
YOANNA AMARAL DR, KAMINI AT [phone] SPOKE WITH SARY PIZARRO.
[2020-08-02] MEDS ORDERED: PANTOPRAZOLE SODIUM 40 MG/VIAL (PROTONIX) IVP ONE (12:00)
[2020-08-02 12:25] VITALS: BP_SYST 130
--- NOTE | 2020-08-02 16:03 | NUR ---
Patient accepted for out pt dialysis at [facility] [address], [place] at 5:30 AM . Patient will need to be at [facility] at 5:30 wednesday08-05-2020. Copies of 3 negative [employer]'s faxed to [facility] dialysis [phone]
[2020-08-02 16:12] VITALS: BP_SYST 157
[2020-08-02] MEDS: EPOETIN ALFA 3,000 UNITS/ML VIAL SUBCUT SCH (17:00)
[2020-08-02] MEDS ORDERED: METOCLOPRAMIDE HCL 10 MG/2 ML VIAL IVP SCH (17:00)
[2020-08-02] MEDS ORDERED: HEPARIN SODIUM,PORCINE 5,000 UNITS/ML VIAL ONE (17:43)
--- NOTE | 2020-08-02 18:33 | NUR ---
Patient is in bed resting. Patient is on 2L of O2 via nasal cannula. Patient is alert and oriented x4. Patient denies pain, distress and shortness of breath. Patient is cooperative with care but displays signs of depression. All care needs met. Dialysis complete. Homeostasis maintained at baseline. Bed in low position. Call light in reach. Will give report to night nurse.
--- NOTE | 2020-08-02 19:15 | NUR ---
OPENING NOTE PATIENT SITTING IN BED, AOX4. NO SIGNS OF RESPIRATORY DISTRESS NOTED. RESPIRATIONS EVEN AND UNLABORED ON ROOM AIR. TOLERATING WELL O2 SATURATION OF 100%. IV SITE, PATENCY NOTED. VALERI CATHETER NOTED TO RIGHT UPPER CHEST. IN PLACE AND INTACT. AIRBORNE ISOLATION PRECAUTIONS IN PLACE, SAFETY MEASURES IN PLACE. PATIENT PREPARING FOR DISCHARGE, NOTIFYING FAMILY NOW. BED LOCKED IN LOW POSITION WITH CALL LIGHT IN REACH. PATIENT WAS EDUCATED TO USE CALL LIGHT WHEN ASSISTANCE IS NEEDED. WILL CONTINUE TO MONITOR PATIENT.
--- NOTE | 2020-08-02 20:00 | NUR ---
MEDICATION PASS PATIENT TOLERATED ALL MEDICATION. BLOOD SUGAR 184, PATIENT REFUSING INSULIN AT THIS TIME. SHE STATES SHE JUST WANTS TO GO HOME.
[2020-08-02] MEDS ORDERED: PANTOPRAZOLE SODIUM 40 MG/VIAL (PROTONIX) IVP SCH (21:00)
--- NOTE | 2020-08-02 21:12 | NUR ---
D/C Patient Patient given medication reconciliation form and D/C instructions. Exit Care provided. Patient verbalized understanding. Patient in stable condition, ID band removed. IV catheter removed, intact and dressing applied, no active bleeding. Rx of given. Patient educated on pain management. All belongings sent with patient. Patient wheeled out on wheelchair, family member picked her up.
== END 2020-08-02 21:12 | disposition home or self-care (01) | DRG 871 ==
LOC: SED 18:21 → SMU 23:02 → STU 23:53 → SMU 07-19 19:35 → STU 07-20 16:00 → SMU 07-27 12:09
PROVIDERS: ADMIT Internal Medicine; ATTEND Internal Medicine
PROC: 02HV33Z Insertion of Infusion Device into Superior Vena Cava, Percutaneous Approach (ICD-10-PCS; 2020-07-20)
PROC: B548ZZA Ultrasonography of Superior Vena Cava, Guidance (ICD-10-PCS; 2020-07-20)
PROC: 5A1D70Z Performance of Urinary Filtration, Intermittent, Less than 6 Hours Per Day (ICD-10-PCS; 2020-07-20)
PROC: 5A1D70Z Performance of Urinary Filtration, Intermittent, Less than 6 Hours Per Day (ICD-10-PCS; 2020-07-21)
PROC: 5A1D70Z Performance of Urinary Filtration, Intermittent, Less than 6 Hours Per Day (ICD-10-PCS; 2020-07-22)
PROC: 0TB03ZX Excision of Right Kidney, Percutaneous Approach, Diagnostic (ICD-10-PCS; 2020-07-22)
PROC: 02HV33Z Insertion of Infusion Device into Superior Vena Cava, Percutaneous Approach (ICD-10-PCS; 2020-07-24)
PROC: B5181ZA Fluoroscopy of Superior Vena Cava using Low Osmolar Contrast, Guidance (ICD-10-PCS; 2020-07-24)
PROC: 5A1D70Z Performance of Urinary Filtration, Intermittent, Less than 6 Hours Per Day (ICD-10-PCS; 2020-07-24)
PROC: 0JH63XZ Insertion of Tunneled Vascular Access Device into Chest Subcutaneous Tissue and Fascia, Percutaneous Approach (ICD-10-PCS; principal; 2020-07-24 13:30)
PROC: 5A1D70Z Performance of Urinary Filtration, Intermittent, Less than 6 Hours Per Day (ICD-10-PCS; 2020-07-25)
PROC: 5A1D70Z Performance of Urinary Filtration, Intermittent, Less than 6 Hours Per Day (ICD-10-PCS; 2020-07-27)
PROC: 5A1D70Z Performance of Urinary Filtration, Intermittent, Less than 6 Hours Per Day (ICD-10-PCS; 2020-07-29)
PROC: 5A1D70Z Performance of Urinary Filtration, Intermittent, Less than 6 Hours Per Day (ICD-10-PCS; 2020-07-31)
PROC: 5A1D70Z Performance of Urinary Filtration, Intermittent, Less than 6 Hours Per Day (ICD-10-PCS; 2020-08-02)
DX: A41.9 Sepsis, unspecified organism (principal); J18.9 Pneumonia, unspecified organism; N18.6 End stage renal disease; E43 Unspecified severe protein-calorie malnutrition; N17.0 Acute kidney failure with tubular necrosis; I50.33 Acute on chronic diastolic (congestive) heart failure; J96.00 Acute respiratory failure, unspecified whether with hypoxia or hypercapnia; E87.1 Hypo-osmolality and hyponatremia; I13.2 Hypertensive heart and chronic kidney disease with heart failure and with stage 5 chronic kidney disease, or end stage renal disease; R18.8 Other ascites; N10 Acute pyelonephritis; E87.6 Hypokalemia; F17.210 Nicotine dependence, cigarettes, uncomplicated; Z60.2 Problems related to living alone; K59.00 Constipation, unspecified; E88.09 Other disorders of plasma-protein metabolism, not elsewhere classified; E83.51 Hypocalcemia; E11.65 Type 2 diabetes mellitus with hyperglycemia; E83.39 Other disorders of phosphorus metabolism; E11.22 Type 2 diabetes mellitus with diabetic chronic kidney disease; D63.1 Anemia in chronic kidney disease; E66.01 Morbid (severe) obesity due to excess calories; Z20.828 Contact with and (suspected) exposure to other viral communicable diseases; Z99.2 Dependence on renal dialysis; Z71.3 Dietary counseling and surveillance; Z90.710 Acquired absence of both cervix and uterus; Z83.3 Family history of diabetes mellitus; Z82.49 Family history of ischemic heart disease and other diseases of the circulatory system; Z81.8 Family history of other mental and behavioral disorders; Z22.7 Latent tuberculosis; Z68.27 Body mass index [BMI] 27.0-27.9, adult; Z82.0 Family history of epilepsy and other diseases of the nervous system; Z91.19 Patient's noncompliance with other medical treatment and regimen; Z98.891 History of uterine scar from previous surgery
CPT/HCPCS: 36415; 71045; 71046-TC; 74018; 76000; 76770; 77012; 80048; 80053; 81000-TC; 82105; 82140-TC; 82272; 82575-TC; 82607; 82728; 82746; 82962; 83036; 83540-TC; 83550-TC; 83605; 83690-TC; 83735-TC; 83880; 84100-TC; 84156; 84439; 84443-TC; 84480; 84484; 85025; 85379; 85610-TC; 85651-TC; 85730-TC; 86038; 86140; 86256; 86480; 86580; 86738; 86886; 86900; 86901; 87040-TC; 87081; 87086; 87116; 87340; 88300; 88305; 90935; 90937; 93005; 93306; 94640; 94760; 97110-GP; 97116-GP; 97163; 97530-GP; C1750; C1751; C9113; G0378; J0360; J0456; J0696; J0885; J1644; J1815; J1940; J1956; J2001; J2060; J2250; J2405; J2543; J2765; J3490; J7030; J7050; J7060; J7120; J7131; J7613

== ENCOUNTER 2020-08-09 02:40 | Inpatient (IN) | payer OTHER, SELFPAY ==
[~2020-08-09] VITALS: Ht 165.1 cm; Wt 69.1 kg
[2020-08-09] VITALS (17 sets, daily range): BP systolic 65–180
[~2020-08-09 02:40] MED LIST changes: +CAT.1 PO; -HUM10VIA SQ; -METO25TA3 PO
[2020-08-09 03:14] LABS: BASOPHILS # (AUTO) 0.1 K/uL (0.0-0.2); BASOPHILS % (AUTO) 0.8 % (0.0-2.0); EOSINOPHILS # (AUTO) 0.2 K/uL (0.0-0.4); EOSINOPHILS % (AUTO) 1.7 % (0.0-4.0); HEMATOCRIT 25.3 % (36-48); HEMOGLOBIN 8.1 g/dL (12.0-16.0); LYMPHOCYTES # (AUTO) 2.1 K/uL (1.0-5.5); LYMPHOCYTES % (AUTO) 18.1 % (20.5-51.5); MEAN CORPUSCULAR HEMOGLOBIN 23 pg (27-31); MEAN CORPUSCULAR HGB CONC 32 % (32-36); MEAN CORPUSCULAR VOLUME 70 fL (79.0-98.0); MONOCYTES # (AUTO) 1.2 K/uL (0.0-1.0); MONOCYTES % (AUTO) 10.4 % (1.7-9.3); NEUTROPHILS # (AUTO) 7.9 K/uL (1.8-7.7); PLATELET COUNT (AUTO) 366 K/uL (130-430); RED CELL DISTRIBUTION WIDTH 17.8 % (9.0-15.0); WHITE BLOOD COUNT (AUTO) 11.5 K/uL (4.8-10.8)
[2020-08-09] MEDS ORDERED: ASPIRIN 325 MG TABLET PO ONE (03:15)
[2020-08-09] MEDS ORDERED: NITROGLYCERIN 0.4 MG TAB.SUBL SL ONE ×2 (03:15→03:26)
[2020-08-09] MEDS ORDERED: HYDR-4039 PO (03:26)
[2020-08-09] MEDS ORDERED: METO5TAB86 PO (03:27)
[2020-08-09] MEDS ORDERED: MINO2.5T PO (03:28)
[2020-08-09] MEDS ORDERED: PRO40 PO (03:28)
[2020-08-09] MEDS ORDERED: CAT.1 PO (03:29)
[2020-08-09] MEDS ORDERED: METO50TA16 PO (03:29)
[2020-08-09 03:31] LABS: CALCIUM 7.8 mg/dL (8.4-11.0); CREATININE 3.85 mg/dL (0.55-1.30); POTASSIUM 3.5 mmol/L (3.5-5.1)
[2020-08-09] MEDS ORDERED: ATOR10TA68 PO (03:31)
[2020-08-09] MEDS ORDERED: TRAZ-250 PO (03:31)
[2020-08-09] MEDS ORDERED: ASPI-1393 PO (03:32)
[2020-08-09] MEDS ORDERED: DOCU-144 PO (03:35)
[2020-08-09 03:36] LABS: ALBUMIN 2.7 g/dL (3.4-4.8); C-REACTIVE PROTEIN QUANT 1.2 mg/dL (0-0.5); TOTAL BILIRUBIN 0.4 mg/dL (0.0-1.0)
[2020-08-09 03:41] LABS: INR 1.1 (0.8-1.2); PROTHROMBIN TIME 11.6 SECS (9.5-12.5)
[2020-08-09] MEDS ORDERED: cefTRIAXone 1 GM IVPB PREMIX 50 ML IV ONE (04:45)
[2020-08-09] MEDS ORDERED: VANCOMYCIN HCL 1,000 MG in NS 250 ML IV ONE (04:45)
[2020-08-09] MEDS ORDERED: PIPERACILLIN/TAZO 3.375 GM in NS 50 ML IV ONE (04:45)
[2020-08-09] MEDS ORDERED: AZITHROMYCIN 250 MG TABLET PO ONE (04:45)
[2020-08-09] MEDS ORDERED: VANCOMYCIN HCL 1000 MG/VIAL IV ONE (05:04)
[2020-08-09] MEDS ORDERED: PIPERACILLIN/TAZOBACTAM 3.375 GM/VIAL (ZOSYN) IV ONE (05:06)
[2020-08-09] MEDS ORDERED: IOHEXOL 350 mgI/mL, 150 ML INFUS..BTL IV ONE (06:38)
[2020-08-09] MEDS ORDERED: ETOMIDATE 20 MG/ 10 ML VIAL (AMIDATE) IVP ONE (07:53)
[2020-08-09] MEDS ORDERED: PANTOPRAZOLE SODIUM 40 MG TAB PO SCH (09:00)
[2020-08-09] MEDS: METOPROLOL TARTRATE 50 MG TABLET PO SCH ×3 (10:30→20:43)
[2020-08-09] MEDS: DOCUSATE SODIUM 100 MG CAPSULE PO SCH ×2 (10:30→20:42)
[2020-08-09] MEDS: cloNIDine HCL 0.1 MG TABLET PO SCH ×2 (10:30→20:41)
[2020-08-09] MEDS: ASPIRIN 81 MG TABLET(ECOTRIN) PO SCH (10:30)
[2020-08-09] MEDS: MINOXIDIL 10 MG TABLET (LONITEN) PO SCH ×2 (10:30→20:42)
[2020-08-09] MEDS ORDERED: LORazepam 2 MG/ML VIAL IVP ONE (15:00)
[2020-08-09 15:08] LABS: APPEARANCE,SPUN,BODY FLUID CLEAR (CLEAR); BF APPEARANCE UNSPUN HAZY (CLEAR); BODY FLUID COLOR YELLOW (LT YELLOW); BODY FLUID SOURCE/ TYPE PLEURAL; BODY FLUID TOTAL VOLUME 1050 mL; SOURCE/TYPE ,BODY FLUID THORACENTESIS; WBC, BODY FLUID 307 /uL
[2020-08-09 15:09] LABS: MONOCYTES,BODY FLUID 70 %; NEUTROPHIL, BODY FLUID 30 %; RBC, BODY FLUID 2204 /uL
[2020-08-09] MEDS ORDERED: LORazepam 2 MG/ML VIAL ONE (15:19)
[2020-08-09 16:28] LABS: CALCIUM 7.8 mg/dL (8.4-11.0); CREATININE 1.88 mg/dL (0.55-1.30); POTASSIUM 4.6 mmol/L (3.5-5.1)
[2020-08-09] MEDS ORDERED: NACL 0.9% 1,000 ML IV ONE ×2 (16:30→17:00)
[2020-08-09] MEDS ORDERED: NOREPINEPHRINE 4 MG/4 ML VIAL IV ONE (16:38)
[2020-08-09] MEDS ORDERED: HEPARIN SODIUM,PORCINE 5,000 UNITS/ML VIAL ONE (16:40)
[2020-08-09] MEDS ORDERED: NS 1000 ML IV.SOLN IV ONE (16:50)
[2020-08-09] MEDS ORDERED: ACETAMINOPHEN 325 MG TABLET PO PRN (17:00)
[2020-08-09] MEDS: NACL 0.9% 1,000 ML IV SCH (18:05)
[2020-08-09] MEDS: AZITHROMYCIN 500 MG in NS 250 ML IV SCH (18:05)
[2020-08-09] MEDS: MIDAZOLAM HCL IN 0.9 % NACL/PF 50 ML IV PRN ×2 (18:07→23:00)
[2020-08-09] MEDS ORDERED: NOREPINEPHRINE BITARTRATE 4 MG in D5W 246 ML IV PRN (18:15)
[2020-08-09 18:33] LABS: MEAN CORPUSCULAR HEMOGLOBIN 22 pg (27-31); MEAN CORPUSCULAR HGB CONC 31 % (32-36); MEAN CORPUSCULAR VOLUME 72 fL (79.0-98.0); PLATELET COUNT (AUTO) 293 K/uL (130-430); RED CELL DISTRIBUTION WIDTH 16.9 % (9.0-15.0)
[2020-08-09 18:37] LABS: HEMATOCRIT 20.2 % (36-48); HEMOGLOBIN 6.3 g/dL (12.0-16.0); WHITE BLOOD COUNT (AUTO) 30.9 K/uL (4.8-10.8)
[2020-08-09 18:49] LABS: BAND % (MANUAL) 2 % (0-6); BASOPHILS % (MANUAL) 0 % (0-2); EOSINOPHILS % (MANUAL) 0 % (0-7); LYMPHOCYTES % (MANUAL) 3 % (20-46); MONOCYTES % (MANUAL) 6 % (0-11)
[2020-08-09 20:15] LABS: BODY FLUID GLUCOSE 164 mg/dL; BODY FLUID TOTAL PROTEIN 2.1 g/dL
[2020-08-09] MEDS: traZODone HCL 50 MG TABLET (DESYREL) PO SCH (20:42)
[2020-08-09] MEDS: ATORVASTATIN 10 MG TABLET PO SCH (20:42)
[2020-08-09] MEDS: INSULIN REGULAR, HUMAN 100 UNITS/ML, 10 ML VIAL (humuLIN R) SUBCUT PRN (22:25)
[2020-08-09] MEDS: PIPERACILLIN/TAZO 2.25G/DEX-IS 50 ML IV SCH (22:51)
[2020-08-10] VITALS (34 sets, daily range): BP systolic 87–171
[2020-08-10] MEDS: PROPOFOL DRIP 100 ML IV PRN ×2 (05:08→12:57)
[2020-08-10] MEDS: PIPERACILLIN/TAZO 2.25G/DEX-IS 50 ML IV SCH ×3 (06:25→22:13)
[2020-08-10 06:42] LABS: BASOPHILS # (AUTO) 0.2 K/uL (0.0-0.2); BASOPHILS % (AUTO) 0.9 % (0.0-2.0); EOSINOPHILS # (AUTO) 0.2 K/uL (0.0-0.4); EOSINOPHILS % (AUTO) 1.1 % (0.0-4.0); LYMPHOCYTES # (AUTO) 1.2 K/uL (1.0-5.5); LYMPHOCYTES % (AUTO) 6.1 % (20.5-51.5); MEAN CORPUSCULAR HEMOGLOBIN 23 pg (27-31); MEAN CORPUSCULAR HGB CONC 32 % (32-36); MEAN CORPUSCULAR VOLUME 71 fL (79.0-98.0); MONOCYTES # (AUTO) 1.7 K/uL (0.0-1.0); NEUTROPHILS # (AUTO) 15.7 K/uL (1.8-7.7); NEUTROPHILS % (AUTO) 82.9 % (40.0-70.0); PLATELET COUNT (AUTO) 268 K/uL (130-430); RED BLOOD CELL COUNT(AUTO) 2.28 MIL/uL (4.2-6.2); RED CELL DISTRIBUTION WIDTH 17.5 % (9.0-15.0); WHITE BLOOD COUNT (AUTO) 18.9 K/uL (4.8-10.8)
[2020-08-10 07:54] LABS: HEMATOCRIT 16.2 % (36-48); HEMOGLOBIN 5.2 g/dL (12.0-16.0)
[2020-08-10 08:12] LABS: POTASSIUM 3.8 mmol/L (3.5-5.1)
[2020-08-10 08:13] LABS: CALCIUM 7.3 mg/dL (8.4-11.0); CREATININE 3.6 mg/dL (0.55-1.30); TOTAL BILIRUBIN 0.4 mg/dL (0.0-1.0)
[2020-08-10 08:14] LABS: ALBUMIN 2.2 g/dL (3.4-4.8); C-REACTIVE PROTEIN QUANT 5.3 mg/dL (0-0.5)
[2020-08-10] MEDS: ASPIRIN 81 MG TABLET(ECOTRIN) PO SCH (09:00)
[2020-08-10] MEDS: cloNIDine HCL 0.1 MG TABLET PO SCH ×2 (09:18→22:12)
[2020-08-10] MEDS: METOPROLOL TARTRATE 50 MG TABLET PO SCH ×3 (09:18→22:12)
[2020-08-10] MEDS: DOCUSATE SODIUM 100 MG CAPSULE PO SCH ×2 (09:19→22:12)
[2020-08-10] MEDS: MINOXIDIL 10 MG TABLET (LONITEN) PO SCH ×2 (09:19→21:00)
[2020-08-10] MEDS: PANTOPRAZOLE SODIUM 40 MG/VIAL (PROTONIX) IVP SCH (09:19)
[2020-08-10] MEDS: INSULIN REGULAR, HUMAN 100 UNITS/ML, 10 ML VIAL (humuLIN R) SUBCUT PRN ×2 (12:55→22:14)
[2020-08-10 14:38] LABS: BASOPHILS # (AUTO) 0.1 K/uL (0.0-0.2); BASOPHILS % (AUTO) 0.3 % (0.0-2.0); EOSINOPHILS % (AUTO) 0.1 % (0.0-4.0); HEMATOCRIT 27.4 % (36-48); HEMOGLOBIN 9.1 g/dL (12.0-16.0); LYMPHOCYTES # (AUTO) 1.3 K/uL (1.0-5.5); LYMPHOCYTES % (AUTO) 5.6 % (20.5-51.5); MEAN CORPUSCULAR HEMOGLOBIN 25 pg (27-31); MEAN CORPUSCULAR HGB CONC 33 % (32-36); MONOCYTES # (AUTO) 2.5 K/uL (0.0-1.0); MONOCYTES % (AUTO) 10.5 % (1.7-9.3); NEUTROPHILS % (AUTO) 83.5 % (40.0-70.0); PLATELET COUNT (AUTO) 269 K/uL (130-430); RED BLOOD CELL COUNT(AUTO) 3.57 MIL/uL (4.2-6.2); WHITE BLOOD COUNT (AUTO) 23.9 K/uL (4.8-10.8)
[2020-08-10 14:49] LABS: MEAN CORPUSCULAR VOLUME 77 fL (79.0-98.0)
[2020-08-10] MEDS ORDERED: LIDOCAINE JELLY 5 ML TUBE ONE (16:24)
[2020-08-10] MEDS ORDERED: ACETYLCYSTEINE 10% 4 ML VIAL (RT) INH ONE (16:37)
[2020-08-10] MEDS: AZITHROMYCIN 500 MG in NS 250 ML IV SCH (16:41)
[2020-08-10] MEDS: NACL 0.9% 1,000 ML IV SCH (17:28)
[2020-08-10] MEDS: ATORVASTATIN 10 MG TABLET PO SCH (22:12)
[2020-08-10] MEDS: traZODone HCL 50 MG TABLET (DESYREL) PO SCH (22:12)
[2020-08-11] VITALS (38 sets, daily range): BP systolic 11–156
[2020-08-11] MEDS: PROPOFOL DRIP 100 ML IV PRN ×3 (02:31→19:03)
[2020-08-11] MEDS: PIPERACILLIN/TAZO 2.25G/DEX-IS 50 ML IV SCH (06:10)
[2020-08-11] MEDS: INSULIN REGULAR, HUMAN 100 UNITS/ML, 10 ML VIAL (humuLIN R) SUBCUT PRN ×4 (06:53→21:18)
[2020-08-11 07:16] LABS: ALBUMIN 2.2 g/dL (3.4-4.8); CREATININE 3.6 mg/dL (0.55-1.30); POTASSIUM 3.6 mmol/L (3.5-5.1); TOTAL BILIRUBIN 0.4 mg/dL (0.0-1.0)
[2020-08-11] MEDS ORDERED: MORPHINE I.V. DRIP 100 ML IV PRN (09:30)
[2020-08-11] MEDS ORDERED: NALOXONE HCL 0.4 MG/ML AMP (NARCAN) IVP PRN (09:30)
[2020-08-11] MEDS: DOCUSATE SODIUM 100 MG CAPSULE PO SCH ×2 (09:57→20:51)
[2020-08-11] MEDS: PANTOPRAZOLE SODIUM 40 MG/VIAL (PROTONIX) IVP SCH (09:57)
[2020-08-11] MEDS: ASPIRIN 81 MG TABLET(ECOTRIN) PO SCH (09:57)
[2020-08-11] MEDS: cloNIDine HCL 0.1 MG TABLET PO SCH ×2 (09:57→20:51)
[2020-08-11] MEDS: METOPROLOL TARTRATE 50 MG TABLET PO SCH ×3 (09:58→20:52)
[2020-08-11] MEDS: MINOXIDIL 10 MG TABLET (LONITEN) PO SCH ×2 (09:58→20:51)
[2020-08-11] MEDS: MIDAZOLAM HCL 2 MG/2 ML VIAL (VERSED) IVP PRN ×2 (10:32→16:27)
[2020-08-11] MEDS ORDERED: ALBUMIN HUMAN 25% 100 ML IV ONE (12:15)
[2020-08-11] MEDS ORDERED: HEPARIN SODIUM,PORCINE 5,000 UNITS/ML VIAL IV ONE (12:45)
[2020-08-11] MEDS: MICAFUNGIN SODIUM 100 MG in NS 100 ML IV SCH (14:00)
[2020-08-11] MEDS: AZITHROMYCIN 500 MG in NS 250 ML IV SCH (17:06)
[2020-08-11] MEDS: NACL 0.9% 1,000 ML IV SCH (17:06)
[2020-08-11] MEDS: MEROPENEM 500 MG in NS 50 ML IV SCH (20:50)
[2020-08-11] MEDS: traZODone HCL 50 MG TABLET (DESYREL) PO SCH (20:51)
[2020-08-11] MEDS: ATORVASTATIN 10 MG TABLET PO SCH (20:51)
[2020-08-12] VITALS (30 sets, daily range): BP systolic 89–141
[2020-08-12] MEDS: PROPOFOL DRIP 100 ML IV PRN ×2 (04:46→17:43)
[2020-08-12 06:04] LABS: BASOPHILS # (AUTO) 0.1 K/uL (0.0-0.2); BASOPHILS % (AUTO) 0.6 % (0.0-2.0); EOSINOPHILS # (AUTO) 0.1 K/uL (0.0-0.4); EOSINOPHILS % (AUTO) 1.1 % (0.0-4.0); HEMATOCRIT 22.5 % (36-48); HEMOGLOBIN 7.4 g/dL (12.0-16.0); LYMPHOCYTES # (AUTO) 1.4 K/uL (1.0-5.5); LYMPHOCYTES % (AUTO) 10.4 % (20.5-51.5); MEAN CORPUSCULAR HEMOGLOBIN 25 pg (27-31); MEAN CORPUSCULAR HGB CONC 33 % (32-36); MEAN CORPUSCULAR VOLUME 77 fL (79.0-98.0); MONOCYTES # (AUTO) 1.5 K/uL (0.0-1.0); MONOCYTES % (AUTO) 11.3 % (1.7-9.3); NEUTROPHILS # (AUTO) 10.2 K/uL (1.8-7.7); NEUTROPHILS % (AUTO) 76.6 % (40.0-70.0); PLATELET COUNT (AUTO) 214 K/uL (130-430); RED BLOOD CELL COUNT(AUTO) 2.94 MIL/uL (4.2-6.2)
[2020-08-12 06:22] LABS: WHITE BLOOD COUNT (AUTO) 13.4 K/uL (4.8-10.8)
[2020-08-12] MEDS: INSULIN REGULAR, HUMAN 100 UNITS/ML, 10 ML VIAL (humuLIN R) SUBCUT PRN ×3 (06:30→20:48)
[2020-08-12 06:42] LABS: ALBUMIN 2.4 g/dL (3.4-4.8); CALCIUM 7.7 mg/dL (8.4-11.0); CREATININE 3.29 mg/dL (0.55-1.30); POTASSIUM 3.5 mmol/L (3.5-5.1); TOTAL BILIRUBIN 0.5 mg/dL (0.0-1.0)
[2020-08-12 07:14] LABS: C-REACTIVE PROTEIN QUANT 21.1 mg/dL (0-0.5)
[2020-08-12 08:18] LABS: ERYTHROCYTE SEDIMENTATION RATE 71 MM/HR (0-20)
[2020-08-12] MEDS: ASPIRIN 81 MG TABLET(ECOTRIN) PO SCH (09:41)
[2020-08-12] MEDS: PANTOPRAZOLE SODIUM 40 MG/VIAL (PROTONIX) IVP SCH (09:41)
[2020-08-12] MEDS: cloNIDine HCL 0.1 MG TABLET PO SCH ×2 (09:41→20:03)
[2020-08-12] MEDS: MEROPENEM 500 MG in NS 50 ML IV SCH ×2 (09:41→20:01)
[2020-08-12] MEDS: DOCUSATE SODIUM 100 MG CAPSULE PO SCH ×2 (09:42→20:02)
[2020-08-12] MEDS: METOPROLOL TARTRATE 50 MG TABLET PO SCH ×3 (09:42→20:03)
[2020-08-12] MEDS: MINOXIDIL 10 MG TABLET (LONITEN) PO SCH ×2 (09:42→20:02)
[2020-08-12] MEDS: INSULIN NPH/REGULAR 70-30, 100 UNITS/ML, 10 ML VIAL SUBCUT SCH ×2 (09:45→20:49)
[2020-08-12] MEDS: MICAFUNGIN SODIUM 100 MG in NS 100 ML IV SCH (12:30)
[2020-08-12 13:19] LABS: BASOPHILS # (AUTO) 0.1 K/uL (0.0-0.2); BASOPHILS % (AUTO) 0.5 % (0.0-2.0); EOSINOPHILS # (AUTO) 0.3 K/uL (0.0-0.4); HEMATOCRIT 22.8 % (36-48); HEMOGLOBIN 7.5 g/dL (12.0-16.0); LYMPHOCYTES # (AUTO) 1.4 K/uL (1.0-5.5); LYMPHOCYTES % (AUTO) 10.6 % (20.5-51.5); MEAN CORPUSCULAR HEMOGLOBIN 25 pg (27-31); MEAN CORPUSCULAR HGB CONC 33 % (32-36); MEAN CORPUSCULAR VOLUME 77 fL (79.0-98.0); MONOCYTES # (AUTO) 1.6 K/uL (0.0-1.0); MONOCYTES % (AUTO) 12.7 % (1.7-9.3); NEUTROPHILS # (AUTO) 9.6 K/uL (1.8-7.7); NEUTROPHILS % (AUTO) 74.2 % (40.0-70.0); PLATELET COUNT (AUTO) 193 K/uL (130-430); RED BLOOD CELL COUNT(AUTO) 2.95 MIL/uL (4.2-6.2); RED CELL DISTRIBUTION WIDTH 20.2 % (9.0-15.0); WHITE BLOOD COUNT (AUTO) 12.9 K/uL (4.8-10.8)
[2020-08-12] MEDS: AZITHROMYCIN 500 MG in NS 250 ML IV SCH (15:39)
[2020-08-12 16:22] LABS: SOURCE/TYPE ,BODY FLUID PLEURAL
[2020-08-12 16:24] LABS: APPEARANCE,SPUN,BODY FLUID BLOODY (CLEAR); BF APPEARANCE UNSPUN BLOODY (CLEAR); BODY FLUID COLOR RED (LT YELLOW); BODY FLUID SOURCE/ TYPE THORACENTESIS
[2020-08-12 16:25] LABS: BODY FLUID TOTAL VOLUME 1000 mL; WBC, BODY FLUID 2200 /uL
[2020-08-12 16:26] LABS: LYMPHOCYTES, BODY FLUID 18 %; NEUTROPHIL, BODY FLUID 82 %; RBC, BODY FLUID 1073710 /uL
[2020-08-12] MEDS: NACL 0.9% 1,000 ML IV SCH (17:40)
[2020-08-12 18:25] LABS: BODY FLUID GLUCOSE 156 mg/dL
[2020-08-12 18:26] LABS: BODY FLUID TOTAL PROTEIN 4.4 g/dL
[2020-08-12] MEDS: ATORVASTATIN 10 MG TABLET PO SCH (20:02)
[2020-08-12] MEDS: traZODone HCL 50 MG TABLET (DESYREL) PO SCH (20:02)
[2020-08-12 23:09] LABS: MYCOPLASMA PNEUMONIAE IgM <770 U/mL (0-769)
[2020-08-13] VITALS (29 sets, daily range): BP systolic 88–158
[2020-08-13] MEDS: PROPOFOL DRIP 100 ML IV PRN ×3 (02:48→23:05)
[2020-08-13 05:27] LABS: BASOPHILS # (AUTO) 0.1 K/uL (0.0-0.2); BASOPHILS % (AUTO) 0.5 % (0.0-2.0); EOSINOPHILS # (AUTO) 0.5 K/uL (0.0-0.4); EOSINOPHILS % (AUTO) 4.4 % (0.0-4.0); HEMATOCRIT 22.3 % (36-48); HEMOGLOBIN 7.2 g/dL (12.0-16.0); LYMPHOCYTES # (AUTO) 1.5 K/uL (1.0-5.5); MEAN CORPUSCULAR HEMOGLOBIN 25 pg (27-31); MEAN CORPUSCULAR HGB CONC 32 % (32-36); MEAN CORPUSCULAR VOLUME 77 fL (79.0-98.0); MONOCYTES # (AUTO) 1.3 K/uL (0.0-1.0); MONOCYTES % (AUTO) 10.7 % (1.7-9.3); NEUTROPHILS # (AUTO) 8.4 K/uL (1.8-7.7); NEUTROPHILS % (AUTO) 71.4 % (40.0-70.0); PLATELET COUNT (AUTO) 205 K/uL (130-430); RED BLOOD CELL COUNT(AUTO) 2.89 MIL/uL (4.2-6.2); RED CELL DISTRIBUTION WIDTH 20.1 % (9.0-15.0); WHITE BLOOD COUNT (AUTO) 11.7 K/uL (4.8-10.8)
[2020-08-13 05:41] LABS: CALCIUM 7.5 mg/dL (8.4-11.0); CREATININE 4.76 mg/dL (0.55-1.30); POTASSIUM 3.6 mmol/L (3.5-5.1); TOTAL BILIRUBIN 0.4 mg/dL (0.0-1.0)
[2020-08-13] MEDS: DOCUSATE SODIUM 100 MG CAPSULE PO SCH ×2 (09:29→21:27)
[2020-08-13] MEDS: cloNIDine HCL 0.1 MG TABLET PO SCH ×2 (09:29→21:27)
[2020-08-13] MEDS: METOPROLOL TARTRATE 50 MG TABLET PO SCH ×3 (09:29→21:28)
[2020-08-13] MEDS: PANTOPRAZOLE SODIUM 40 MG/VIAL (PROTONIX) IVP SCH (09:30)
[2020-08-13] MEDS: MINOXIDIL 10 MG TABLET (LONITEN) PO SCH ×2 (09:30→21:27)
[2020-08-13] MEDS: MEROPENEM 500 MG in NS 50 ML IV SCH ×2 (09:31→21:27)
[2020-08-13] MEDS: INSULIN NPH/REGULAR 70-30, 100 UNITS/ML, 10 ML VIAL SUBCUT SCH ×2 (09:32→21:00)
[2020-08-13] MEDS ORDERED: MORPHINE 2 MG/ML INJ. SYRINGE IVP ONE (13:30)
[2020-08-13] MEDS ORDERED: NALOXONE HCL 0.4 MG/ML AMP (NARCAN) IVP PRN ×2 (13:30→17:45)
[2020-08-13] MEDS ORDERED: HEPARIN SODIUM,PORCINE 5,000 UNITS/ML VIAL SUBCUT ONE (14:00)
[2020-08-13] MEDS ORDERED: ACETAMINOPHEN 325 MG TABLET PO PRN (14:30)
[2020-08-13] MEDS: MICAFUNGIN SODIUM 100 MG in NS 100 ML IV SCH (14:51)
[2020-08-13] MEDS ORDERED: fentaNYL CITRATE/PF 100 MCG/2 ML AMP IVP PRN ×2 (15:00)
[2020-08-13] MEDS ORDERED: ONDANSETRON HCL 4 MG/2 ML VIAL IVP PRN (15:00)
[2020-08-13] MEDS ORDERED: MIDAZOLAM HCL 2 MG/2 ML VIAL (VERSED) ONE (16:12)
[2020-08-13] MEDS ORDERED: LIDOCAINE 1%, 20 ML MDV 20 ML ONE (16:14)
[2020-08-13] MEDS: AZITHROMYCIN 500 MG in NS 250 ML IV SCH (17:24)
[2020-08-13] MEDS: NACL 0.9% 1,000 ML IV SCH (17:24)
[2020-08-13 20:00] LABS: BASOPHILS # (AUTO) 0.1 K/uL (0.0-0.2); BASOPHILS % (AUTO) 0.9 % (0.0-2.0); EOSINOPHILS # (AUTO) 0.5 K/uL (0.0-0.4); EOSINOPHILS % (AUTO) 4.7 % (0.0-4.0); HEMATOCRIT 22.4 % (36-48); HEMOGLOBIN 7.3 g/dL (12.0-16.0); LYMPHOCYTES % (AUTO) 9.7 % (20.5-51.5); MEAN CORPUSCULAR HEMOGLOBIN 25 pg (27-31); MEAN CORPUSCULAR HGB CONC 32 % (32-36); MEAN CORPUSCULAR VOLUME 78 fL (79.0-98.0); MONOCYTES # (AUTO) 1.3 K/uL (0.0-1.0); MONOCYTES % (AUTO) 12.2 % (1.7-9.3); NEUTROPHILS # (AUTO) 7.7 K/uL (1.8-7.7); NEUTROPHILS % (AUTO) 72.5 % (40.0-70.0); PLATELET COUNT (AUTO) 208 K/uL (130-430); RED BLOOD CELL COUNT(AUTO) 2.88 MIL/uL (4.2-6.2); RED CELL DISTRIBUTION WIDTH 19.8 % (9.0-15.0); WHITE BLOOD COUNT (AUTO) 10.6 K/uL (4.8-10.8)
[2020-08-13] MEDS: ATORVASTATIN 10 MG TABLET PO SCH (21:27)
[2020-08-13] MEDS: traZODone HCL 50 MG TABLET (DESYREL) PO SCH (21:27)
[2020-08-13] MEDS: HYDROcodone/ACETAMIN 5-325 MG TAB (NORCO/ VICODIN) PO PRN (21:52)
[2020-08-14] VITALS (35 sets, daily range): BP systolic 111–153
[2020-08-14 05:50] LABS: CALCIUM 7.5 mg/dL (8.4-11.0); CREATININE 3.97 mg/dL (0.55-1.30); POTASSIUM 3.5 mmol/L (3.5-5.1)
[2020-08-14 06:01] LABS: BASOPHILS # (AUTO) 0.1 K/uL (0.0-0.2); BASOPHILS % (AUTO) 0.8 % (0.0-2.0); EOSINOPHILS # (AUTO) 0.5 K/uL (0.0-0.4); EOSINOPHILS % (AUTO) 5.4 % (0.0-4.0); HEMATOCRIT 22.7 % (36-48); HEMOGLOBIN 7.4 g/dL (12.0-16.0); LYMPHOCYTES # (AUTO) 1.2 K/uL (1.0-5.5); LYMPHOCYTES % (AUTO) 12.9 % (20.5-51.5); MEAN CORPUSCULAR HEMOGLOBIN 25 pg (27-31); MEAN CORPUSCULAR HGB CONC 33 % (32-36); MEAN CORPUSCULAR VOLUME 76 fL (79.0-98.0); MONOCYTES # (AUTO) 1.3 K/uL (0.0-1.0); MONOCYTES % (AUTO) 13.9 % (1.7-9.3); NEUTROPHILS # (AUTO) 6.1 K/uL (1.8-7.7); PLATELET COUNT (AUTO) 225 K/uL (130-430); RED BLOOD CELL COUNT(AUTO) 2.97 MIL/uL (4.2-6.2); RED CELL DISTRIBUTION WIDTH 19.6 % (9.0-15.0); WHITE BLOOD COUNT (AUTO) 9.1 K/uL (4.8-10.8)
[2020-08-14] MEDS: HYDROcodone/ACETAMIN 5-325 MG TAB (NORCO/ VICODIN) PO PRN (06:22)
[2020-08-14] MEDS: MINOXIDIL 10 MG TABLET (LONITEN) PO SCH ×2 (08:21→23:39)
[2020-08-14] MEDS: MEROPENEM 500 MG in NS 50 ML IV SCH ×2 (08:21→20:29)
[2020-08-14] MEDS: PANTOPRAZOLE SODIUM 40 MG/VIAL (PROTONIX) IVP SCH (08:22)
[2020-08-14] MEDS: METOPROLOL TARTRATE 50 MG TABLET PO SCH ×3 (08:22→23:39)
[2020-08-14] MEDS: cloNIDine HCL 0.1 MG TABLET PO SCH ×2 (08:22→23:39)
[2020-08-14] MEDS: DOCUSATE SODIUM 100 MG CAPSULE PO SCH ×2 (08:22→20:29)
[2020-08-14] MEDS: INSULIN NPH/REGULAR 70-30, 100 UNITS/ML, 10 ML VIAL SUBCUT SCH ×2 (08:25→21:10)
[2020-08-14] MEDS: PROPOFOL DRIP 100 ML IV PRN ×2 (08:27→17:05)
[2020-08-14] MEDS ORDERED: NALOXONE HCL 0.4 MG/ML AMP (NARCAN) IVP PRN (10:00)
[2020-08-14] MEDS: HYDROcodone/ACETAMIN 10-325 MG TAB PO PRN ×2 (11:20→18:49)
[2020-08-14] MEDS: MICAFUNGIN SODIUM 100 MG in NS 100 ML IV SCH (11:20)
[2020-08-14] MEDS: INSULIN REGULAR, HUMAN 100 UNITS/ML, 10 ML VIAL (humuLIN R) SUBCUT PRN ×2 (17:13→21:11)
[2020-08-14] MEDS: traZODone HCL 50 MG TABLET (DESYREL) PO SCH (20:29)
[2020-08-14] MEDS: ATORVASTATIN 10 MG TABLET PO SCH (20:29)
[2020-08-14] MEDS ORDERED: HEPARIN SODIUM, PORCINE 10,000 UNITS/ 10 ML VIAL MC ONE ×3 (21:00→21:45)
[2020-08-14] MEDS ORDERED: HEPARIN SODIUM,PORCINE 5,000 UNITS/ML VIAL ONE (22:09)
[2020-08-14] MEDS ORDERED: HEPARIN SODIUM,PORCINE 5,000 UNITS/ML VIAL MC PRN (22:30)
[2020-08-15] VITALS (36 sets, daily range): BP systolic 103–157
[2020-08-15] MEDS: MIDAZOLAM HCL 2 MG/2 ML VIAL (VERSED) IVP PRN ×4 (02:12→22:19)
[2020-08-15] MEDS: PROPOFOL DRIP 100 ML IV PRN ×3 (02:21→18:34)
[2020-08-15 05:57] LABS: BASOPHILS % (AUTO) 0.6 % (0.0-2.0); EOSINOPHILS # (AUTO) 0.6 K/uL (0.0-0.4); EOSINOPHILS % (AUTO) 6.6 % (0.0-4.0); LYMPHOCYTES % (AUTO) 11.4 % (20.5-51.5); MEAN CORPUSCULAR HEMOGLOBIN 25 pg (27-31); MEAN CORPUSCULAR HGB CONC 33 % (32-36); MEAN CORPUSCULAR VOLUME 75 fL (79.0-98.0); MONOCYTES # (AUTO) 0.9 K/uL (0.0-1.0); MONOCYTES % (AUTO) 10.7 % (1.7-9.3); NEUTROPHILS % (AUTO) 70.7 % (40.0-70.0); PLATELET COUNT (AUTO) 225 K/uL (130-430); RED BLOOD CELL COUNT(AUTO) 2.87 MIL/uL (4.2-6.2); RED CELL DISTRIBUTION WIDTH 19.2 % (9.0-15.0); WHITE BLOOD COUNT (AUTO) 8.4 K/uL (4.8-10.8)
[2020-08-15] MEDS: INSULIN REGULAR, HUMAN 100 UNITS/ML, 10 ML VIAL (humuLIN R) SUBCUT PRN ×2 (06:07→13:53)
[2020-08-15 06:15] LABS: HEMATOCRIT 21.6 % (36-48); HEMOGLOBIN 7.2 g/dL (12.0-16.0)
[2020-08-15 06:38] LABS: CALCIUM 7.8 mg/dL (8.4-11.0); CREATININE 3.07 mg/dL (0.55-1.30); POTASSIUM 3.5 mmol/L (3.5-5.1)
[2020-08-15] MEDS ORDERED: DOCUSATE SODIUM 100 MG/10 ML UDC NG ONE (09:15)
[2020-08-15] MEDS: MEROPENEM 500 MG in NS 50 ML IV SCH ×2 (10:13→20:15)
[2020-08-15] MEDS: cloNIDine HCL 0.1 MG TABLET PO SCH ×2 (10:14→20:15)
[2020-08-15] MEDS: METOPROLOL TARTRATE 50 MG TABLET PO SCH ×3 (10:14→20:15)
[2020-08-15] MEDS: PANTOPRAZOLE SODIUM 40 MG/VIAL (PROTONIX) IVP SCH (10:15)
[2020-08-15] MEDS: MINOXIDIL 10 MG TABLET (LONITEN) PO SCH ×2 (10:15→20:14)
[2020-08-15] MEDS: INSULIN NPH/REGULAR 70-30, 100 UNITS/ML, 10 ML VIAL SUBCUT SCH ×2 (10:16→20:34)
[2020-08-15] MEDS: MICAFUNGIN SODIUM 100 MG in NS 100 ML IV SCH (12:24)
[2020-08-15] MEDS: ATORVASTATIN 10 MG TABLET PO SCH (20:14)
[2020-08-15] MEDS: traZODone HCL 50 MG TABLET (DESYREL) PO SCH (20:14)
[2020-08-15] MEDS: DOCUSATE SODIUM 100 MG/10 ML UDC NG SCH (20:15)
[2020-08-15] MEDS: METOCLOPRAMIDE HCL 10 MG/2 ML VIAL IVP SCH (21:41)
[2020-08-15] MEDS ORDERED: MILK OF MAGNESIA 30 ML UDC PO ONE (22:00)
[2020-08-15] MEDS ORDERED: MILK OF MAGNESIA 30 ML UDC ONE (22:01)
[2020-08-16] VITALS (36 sets, daily range): BP systolic 93–180
[2020-08-16] MEDS: PROPOFOL DRIP 100 ML IV PRN ×2 (03:05→08:40)
[2020-08-16] MEDS: METOCLOPRAMIDE HCL 10 MG/2 ML VIAL IVP SCH ×3 (05:42→21:07)
[2020-08-16 07:05] LABS: BASOPHILS # (AUTO) 0.1 K/uL (0.0-0.2); BASOPHILS % (AUTO) 0.8 % (0.0-2.0); EOSINOPHILS # (AUTO) 0.5 K/uL (0.0-0.4); EOSINOPHILS % (AUTO) 7.3 % (0.0-4.0); LYMPHOCYTES # (AUTO) 1.3 K/uL (1.0-5.5); LYMPHOCYTES % (AUTO) 17.9 % (20.5-51.5); MEAN CORPUSCULAR HEMOGLOBIN 25 pg (27-31); MEAN CORPUSCULAR HGB CONC 32 % (32-36); MONOCYTES # (AUTO) 0.8 K/uL (0.0-1.0); NEUTROPHILS # (AUTO) 4.7 K/uL (1.8-7.7); PLATELET COUNT (AUTO) 230 K/uL (130-430); RED BLOOD CELL COUNT(AUTO) 2.69 MIL/uL (4.2-6.2); RED CELL DISTRIBUTION WIDTH 19.4 % (9.0-15.0); WHITE BLOOD COUNT (AUTO) 7.5 K/uL (4.8-10.8)
[2020-08-16 07:06] LABS: CALCIUM 7.6 mg/dL (8.4-11.0); CREATININE 4.53 mg/dL (0.55-1.30); POTASSIUM 3.4 mmol/L (3.5-5.1)
[2020-08-16 07:11] LABS: MEAN CORPUSCULAR VOLUME 76 fL (79.0-98.0)
[2020-08-16 07:13] LABS: HEMATOCRIT 20.7 % (36-48); HEMOGLOBIN 6.7 g/dL (12.0-16.0)
[2020-08-16] MEDS: PANTOPRAZOLE SODIUM 40 MG/VIAL (PROTONIX) IVP SCH (08:18)
[2020-08-16] MEDS: DOCUSATE SODIUM 100 MG/10 ML UDC NG SCH ×2 (08:18→21:00)
[2020-08-16] MEDS: HYDROcodone/ACETAMIN 10-325 MG TAB PO PRN ×2 (08:18→14:18)
[2020-08-16] MEDS: cloNIDine HCL 0.1 MG TABLET PO SCH ×2 (08:22→21:08)
[2020-08-16] MEDS: METOPROLOL TARTRATE 50 MG TABLET PO SCH ×3 (08:23→21:08)
[2020-08-16] MEDS: MEROPENEM 500 MG in NS 50 ML IV SCH (08:31)
[2020-08-16] MEDS: MINOXIDIL 10 MG TABLET (LONITEN) PO SCH ×2 (08:32→21:12)
[2020-08-16] MEDS: INSULIN NPH/REGULAR 70-30, 100 UNITS/ML, 10 ML VIAL SUBCUT SCH ×2 (08:35→22:28)
[2020-08-16] MEDS: MIDAZOLAM HCL 2 MG/2 ML VIAL (VERSED) IVP PRN ×2 (08:40→21:07)
[2020-08-16] MEDS: INSULIN REGULAR, HUMAN 100 UNITS/ML, 10 ML VIAL (humuLIN R) SUBCUT PRN (12:40)
[2020-08-16] MEDS: MICAFUNGIN SODIUM 100 MG in NS 100 ML IV SCH (16:43)
[2020-08-16] MEDS: PIPERACILLIN/TAZO 2.25G/DEX-IS 50 ML IV SCH ×2 (16:44→17:00)
[2020-08-16] MEDS: ATORVASTATIN 10 MG TABLET PO SCH (21:08)
[2020-08-16] MEDS: traZODone HCL 50 MG TABLET (DESYREL) PO SCH (21:08)
[2020-08-17] VITALS (28 sets, daily range): BP systolic 123–196
[2020-08-17] MEDS: PIPERACILLIN/TAZO 2.25G/DEX-IS 50 ML IV SCH ×5 (00:37→23:33)
[2020-08-17] MEDS: MIDAZOLAM HCL 2 MG/2 ML VIAL (VERSED) IVP PRN ×2 (04:01→23:33)
[2020-08-17] MEDS: METOCLOPRAMIDE HCL 10 MG/2 ML VIAL IVP SCH ×3 (05:17→20:57)
[2020-08-17] MEDS: HYDROcodone/ACETAMIN 10-325 MG TAB PO PRN ×2 (05:18→13:27)
[2020-08-17] MEDS: INSULIN REGULAR, HUMAN 100 UNITS/ML, 10 ML VIAL (humuLIN R) SUBCUT PRN ×2 (06:58→21:04)
[2020-08-17 07:18] LABS: BASOPHILS # (AUTO) 0.1 K/uL (0.0-0.2); BASOPHILS % (AUTO) 0.6 % (0.0-2.0); EOSINOPHILS # (AUTO) 0.6 K/uL (0.0-0.4); EOSINOPHILS % (AUTO) 7.7 % (0.0-4.0); HEMATOCRIT 27.7 % (36-48); HEMOGLOBIN 9.2 g/dL (12.0-16.0); LYMPHOCYTES # (AUTO) 1.4 K/uL (1.0-5.5); MEAN CORPUSCULAR HEMOGLOBIN 26 pg (27-31); MEAN CORPUSCULAR HGB CONC 33 % (32-36); MEAN CORPUSCULAR VOLUME 78 fL (79.0-98.0); NEUTROPHILS # (AUTO) 5.2 K/uL (1.8-7.7); NEUTROPHILS % (AUTO) 62.7 % (40.0-70.0); PLATELET COUNT (AUTO) 240 K/uL (130-430); RED BLOOD CELL COUNT(AUTO) 3.56 MIL/uL (4.2-6.2); RED CELL DISTRIBUTION WIDTH 19.7 % (9.0-15.0); WHITE BLOOD COUNT (AUTO) 8.3 K/uL (4.8-10.8)
[2020-08-17 07:31] LABS: CALCIUM 7.5 mg/dL (8.4-11.0); CREATININE 3.31 mg/dL (0.55-1.30); POTASSIUM 3.3 mmol/L (3.5-5.1)
[2020-08-17] MEDS: DOCUSATE SODIUM 100 MG/10 ML UDC NG SCH ×2 (07:59→20:44)
[2020-08-17] MEDS: PANTOPRAZOLE SODIUM 40 MG/VIAL (PROTONIX) IVP SCH (08:10)
[2020-08-17] MEDS: METOPROLOL TARTRATE 50 MG TABLET PO SCH ×3 (08:11→20:45)
[2020-08-17] MEDS: cloNIDine HCL 0.1 MG TABLET PO SCH ×2 (08:11→20:44)
[2020-08-17] MEDS: MINOXIDIL 10 MG TABLET (LONITEN) PO SCH ×2 (08:16→20:46)
[2020-08-17] MEDS: INSULIN NPH/REGULAR 70-30, 100 UNITS/ML, 10 ML VIAL SUBCUT SCH ×2 (08:18→20:48)
[2020-08-17] MEDS: MICAFUNGIN SODIUM 100 MG in NS 100 ML IV SCH (11:10)
[2020-08-17] MEDS: POTASSIUM CHLORIDE 20 MEQ TAB.PRT.SR PO ONE ×2 (15:40→15:50)
[2020-08-17] MEDS ORDERED: KCL 40 mEq in 100 mL (PREMIX) 100 ML IV ONE (16:00)
[2020-08-17] MEDS: hydrALAZINE HCL 20 MG/ML VIAL IVP PRN (16:34)
[2020-08-17] MEDS: MORPHINE 2 MG/ML INJ. SYRINGE IVP PRN ×2 (16:57→20:55)
[2020-08-17] MEDS: D5/0.45 NS 1,000 ML IV SCH (16:57)
[2020-08-17] MEDS ORDERED: MORPHINE 2 MG/ML INJ. SYRINGE ONE (17:15)
[2020-08-17] MEDS: ATORVASTATIN 10 MG TABLET PO SCH (20:45)
[2020-08-17] MEDS: traZODone HCL 50 MG TABLET (DESYREL) PO SCH (20:45)
[2020-08-17] MEDS: IPRATROPIUM/ALBUTEROL SULFATE 3 ML AMPUL.NEB (DUONEB) INH PRN (23:51)
[2020-08-18] VITALS (24 sets, daily range): BP systolic 125–237
[2020-08-18] MEDS: MIDAZOLAM HCL 2 MG/2 ML VIAL (VERSED) IVP PRN ×5 (02:14→22:43)
[2020-08-18] MEDS: hydrALAZINE HCL 20 MG/ML VIAL IVP PRN ×3 (04:06→19:52)
[2020-08-18] MEDS: PIPERACILLIN/TAZO 2.25G/DEX-IS 50 ML IV SCH ×3 (05:27→17:35)
[2020-08-18] MEDS: METOCLOPRAMIDE HCL 10 MG/2 ML VIAL IVP SCH ×3 (05:27→21:13)
[2020-08-18 06:16] LABS: BASOPHILS # (AUTO) 0.1 K/uL (0.0-0.2); BASOPHILS % (AUTO) 0.6 % (0.0-2.0); EOSINOPHILS # (AUTO) 0.8 K/uL (0.0-0.4); EOSINOPHILS % (AUTO) 6.2 % (0.0-4.0); HEMATOCRIT 36.7 % (36-48); HEMOGLOBIN 12.2 g/dL (12.0-16.0); LYMPHOCYTES # (AUTO) 1.3 K/uL (1.0-5.5); LYMPHOCYTES % (AUTO) 10.5 % (20.5-51.5); MEAN CORPUSCULAR HEMOGLOBIN 26 pg (27-31); MEAN CORPUSCULAR HGB CONC 33 % (32-36); MEAN CORPUSCULAR VOLUME 78 fL (79.0-98.0); MONOCYTES % (AUTO) 8.7 % (1.7-9.3); NEUTROPHILS # (AUTO) 8.9 K/uL (1.8-7.7); PLATELET COUNT (AUTO) 299 K/uL (130-430); RED BLOOD CELL COUNT(AUTO) 4.71 MIL/uL (4.2-6.2); RED CELL DISTRIBUTION WIDTH 19.7 % (9.0-15.0); WHITE BLOOD COUNT (AUTO) 12.1 K/uL (4.8-10.8)
[2020-08-18] MEDS: INSULIN REGULAR, HUMAN 100 UNITS/ML, 10 ML VIAL (humuLIN R) SUBCUT PRN ×4 (06:19→21:12)
[2020-08-18] MEDS: D5/0.45 NS 1,000 ML IV SCH ×2 (06:28→17:35)
[2020-08-18 07:09] LABS: CALCIUM 8.4 mg/dL (8.4-11.0); CREATININE 4.11 mg/dL (0.55-1.30); POTASSIUM 3.9 mmol/L (3.5-5.1)
[2020-08-18] MEDS: METOPROLOL TARTRATE 50 MG TABLET PO SCH ×3 (08:18→20:46)
[2020-08-18] MEDS: MINOXIDIL 10 MG TABLET (LONITEN) PO SCH ×2 (08:18→20:46)
[2020-08-18] MEDS: cloNIDine HCL 0.1 MG TABLET PO SCH (08:18)
[2020-08-18] MEDS: DOCUSATE SODIUM 100 MG/10 ML UDC NG SCH ×2 (08:18→21:00)
[2020-08-18] MEDS: INSULIN NPH/REGULAR 70-30, 100 UNITS/ML, 10 ML VIAL SUBCUT SCH ×2 (08:24→21:13)
[2020-08-18] MEDS: PANTOPRAZOLE SODIUM 40 MG/VIAL (PROTONIX) IVP SCH (08:24)
[2020-08-18] MEDS: MORPHINE 2 MG/ML INJ. SYRINGE IVP PRN ×3 (10:16→22:53)
[2020-08-18 10:17] LABS: ERYTHROCYTE SEDIMENTATION RATE 77 MM/HR (0-20)
[2020-08-18] MEDS: LABETALOL 100 MG/ 20ML VIAL IVP PRN ×3 (11:19→22:43)
[2020-08-18] MEDS ORDERED: cloNIDine HCL 0.3 MG/24 HR PATCH.TDWK TD ONE (12:30)
[2020-08-18] MEDS ORDERED: METOPROLOL TARTRATE 5 MG/5 ML VIAL IVP ONE (15:00)
[2020-08-18] MEDS: ATORVASTATIN 10 MG TABLET PO SCH (20:45)
[2020-08-18] MEDS: traZODone HCL 50 MG TABLET (DESYREL) PO SCH (20:45)
[2020-08-18] MEDS: IPRATROPIUM/ALBUTEROL SULFATE 3 ML AMPUL.NEB (DUONEB) INH PRN (20:49)
[2020-08-19] VITALS (24 sets, daily range): BP systolic 101–193
[2020-08-19] MEDS: PIPERACILLIN/TAZO 2.25G/DEX-IS 50 ML IV SCH ×5 (00:17→23:18)
[2020-08-19] MEDS: MORPHINE 2 MG/ML INJ. SYRINGE IVP PRN ×2 (01:51→10:26)
[2020-08-19] MEDS: MIDAZOLAM HCL 2 MG/2 ML VIAL (VERSED) IVP PRN (01:52)
[2020-08-19] MEDS: METOCLOPRAMIDE HCL 10 MG/2 ML VIAL IVP SCH ×3 (05:40→21:28)
[2020-08-19 06:59] LABS: BASOPHILS # (AUTO) 0.1 K/uL (0.0-0.2); BASOPHILS % (AUTO) 0.8 % (0.0-2.0); EOSINOPHILS # (AUTO) 0.3 K/uL (0.0-0.4); EOSINOPHILS % (AUTO) 1.9 % (0.0-4.0); HEMATOCRIT 33.7 % (36-48); HEMOGLOBIN 11.1 g/dL (12.0-16.0); LYMPHOCYTES % (AUTO) 7.1 % (20.5-51.5); MEAN CORPUSCULAR HEMOGLOBIN 26 pg (27-31); MEAN CORPUSCULAR HGB CONC 33 % (32-36); MEAN CORPUSCULAR VOLUME 78 fL (79.0-98.0); MONOCYTES # (AUTO) 1.1 K/uL (0.0-1.0); MONOCYTES % (AUTO) 7.5 % (1.7-9.3); NEUTROPHILS # (AUTO) 11.8 K/uL (1.8-7.7); NEUTROPHILS % (AUTO) 82.7 % (40.0-70.0); PLATELET COUNT (AUTO) 325 K/uL (130-430); RED BLOOD CELL COUNT(AUTO) 4.31 MIL/uL (4.2-6.2); RED CELL DISTRIBUTION WIDTH 20.1 % (9.0-15.0); WHITE BLOOD COUNT (AUTO) 14.2 K/uL (4.8-10.8)
[2020-08-19] MEDS: INSULIN REGULAR, HUMAN 100 UNITS/ML, 10 ML VIAL (humuLIN R) SUBCUT PRN ×2 (07:35→21:39)
[2020-08-19 08:10] LABS: CALCIUM 7.9 mg/dL (8.4-11.0); CREATININE 4.63 mg/dL (0.55-1.30); POTASSIUM 3.8 mmol/L (3.5-5.1); TOTAL BILIRUBIN 0.5 mg/dL (0.0-1.0)
[2020-08-19 08:11] LABS: ALBUMIN 2.1 g/dL (3.4-4.8); PHOSPHORUS 4.4 mg/dL (2.7-4.5)
[2020-08-19] MEDS: D5/0.45 NS 1,000 ML IV SCH ×2 (08:55→17:31)
[2020-08-19] MEDS: DOCUSATE SODIUM 100 MG/10 ML UDC NG SCH ×2 (09:00→21:23)
[2020-08-19] MEDS: PANTOPRAZOLE SODIUM 40 MG/VIAL (PROTONIX) IVP SCH (09:00)
[2020-08-19] MEDS: METOPROLOL TARTRATE 50 MG TABLET PO SCH ×3 (09:04→21:24)
[2020-08-19] MEDS: MINOXIDIL 10 MG TABLET (LONITEN) PO SCH ×2 (09:05→21:24)
[2020-08-19] MEDS: INSULIN NPH/REGULAR 70-30, 100 UNITS/ML, 10 ML VIAL SUBCUT SCH ×2 (09:13→21:38)
[2020-08-19 09:43] LABS: C-REACTIVE PROTEIN QUANT 11.3 mg/dL (0-0.5)
[2020-08-19] MEDS: FLUCONAZOLE 100 mg/ NS 50 ML IV SCH (10:00)
[2020-08-19] MEDS: EPOETIN ALFA 10,000 UNITS/ML VIAL SUBCUT SCH (10:00)
[2020-08-19] MEDS: LABETALOL 100 MG/ 20ML VIAL IVP PRN (10:14)
[2020-08-19 10:29] LABS: ERYTHROCYTE SEDIMENTATION RATE 71 MM/HR (0-20)
[2020-08-19] MEDS: hydrALAZINE HCL 20 MG/ML VIAL IVP PRN (17:45)
[2020-08-19] MEDS ORDERED: HYDROcodone/ACETAMIN 5-325 MG TAB (NORCO/ VICODIN) PO PRN (20:15)
[2020-08-19] MEDS ORDERED: BISACODYL 10 MG/SUPPOSITORY RC PRN (20:15)
[2020-08-19] MEDS ORDERED: NALOXONE HCL 0.4 MG/ML AMP (NARCAN) IVP PRN (20:15)
[2020-08-19] MEDS: ATORVASTATIN 10 MG TABLET PO SCH (21:23)
[2020-08-19] MEDS: traZODone HCL 50 MG TABLET (DESYREL) PO SCH (21:24)
[2020-08-20] VITALS (24 sets, daily range): BP systolic 94–167
[2020-08-20] MEDS: METOCLOPRAMIDE HCL 10 MG/2 ML VIAL IVP SCH ×3 (05:16→21:56)
[2020-08-20] MEDS: PIPERACILLIN/TAZO 2.25G/DEX-IS 50 ML IV SCH ×3 (05:16→17:34)
[2020-08-20] MEDS: INSULIN REGULAR, HUMAN 100 UNITS/ML, 10 ML VIAL (humuLIN R) SUBCUT PRN ×2 (05:59→11:28)
[2020-08-20 06:02] LABS: CALCIUM 8.3 mg/dL (8.4-11.0); CREATININE 3.16 mg/dL (0.55-1.30); POTASSIUM 3.3 mmol/L (3.5-5.1)
[2020-08-20 06:08] LABS: BASOPHILS # (AUTO) 0.2 K/uL (0.0-0.2); BASOPHILS % (AUTO) 1.5 % (0.0-2.0); EOSINOPHILS # (AUTO) 0.4 K/uL (0.0-0.4); EOSINOPHILS % (AUTO) 3.1 % (0.0-4.0); HEMATOCRIT 33.7 % (36-48); HEMOGLOBIN 10.8 g/dL (12.0-16.0); LYMPHOCYTES # (AUTO) 1.6 K/uL (1.0-5.5); LYMPHOCYTES % (AUTO) 12.2 % (20.5-51.5); MEAN CORPUSCULAR HEMOGLOBIN 25 pg (27-31); MEAN CORPUSCULAR HGB CONC 32 % (32-36); MEAN CORPUSCULAR VOLUME 79 fL (79.0-98.0); MONOCYTES # (AUTO) 1.3 K/uL (0.0-1.0); MONOCYTES % (AUTO) 9.9 % (1.7-9.3); NEUTROPHILS # (AUTO) 9.6 K/uL (1.8-7.7); NEUTROPHILS % (AUTO) 73.3 % (40.0-70.0); PLATELET COUNT (AUTO) 389 K/uL (130-430); RED BLOOD CELL COUNT(AUTO) 4.25 MIL/uL (4.2-6.2); RED CELL DISTRIBUTION WIDTH 20.1 % (9.0-15.0); WHITE BLOOD COUNT (AUTO) 13.2 K/uL (4.8-10.8)
[2020-08-20] MEDS: PANTOPRAZOLE SODIUM 40 MG/VIAL (PROTONIX) IVP SCH (08:38)
[2020-08-20] MEDS: D5/0.45 NS 1,000 ML IV SCH (08:38)
[2020-08-20] MEDS: MINOXIDIL 10 MG TABLET (LONITEN) PO SCH ×2 (08:39→20:06)
[2020-08-20] MEDS: METOPROLOL TARTRATE 50 MG TABLET PO SCH ×3 (08:40→20:05)
[2020-08-20] MEDS: DOCUSATE SODIUM 100 MG/10 ML UDC NG SCH ×2 (08:40→20:04)
[2020-08-20] MEDS: FLUCONAZOLE 100 mg/ NS 50 ML IV SCH (08:41)
[2020-08-20] MEDS: INSULIN NPH/REGULAR 70-30, 100 UNITS/ML, 10 ML VIAL SUBCUT SCH ×2 (08:42→20:29)
[2020-08-20] MEDS: KCL 20 mEq in 100 mL (PREMIX) 100 ML IV SCH ×2 (09:31→11:28)
[2020-08-20] MEDS: ATORVASTATIN 10 MG TABLET PO SCH (20:04)
[2020-08-20] MEDS: traZODone HCL 50 MG TABLET (DESYREL) PO SCH (20:05)
[2020-08-21] VITALS (12 sets, daily range): BP systolic 97–158
[2020-08-21] MEDS: PIPERACILLIN/TAZO 2.25G/DEX-IS 50 ML IV SCH ×5 (00:29→22:53)
[2020-08-21] MEDS: METOCLOPRAMIDE HCL 10 MG/2 ML VIAL IVP SCH (06:08)
[2020-08-21] MEDS: D5/0.45 NS 1,000 ML IV SCH (07:00)
[2020-08-21 07:21] LABS: CALCIUM 7.6 mg/dL (8.4-11.0); CREATININE 4.43 mg/dL (0.55-1.30); POTASSIUM 3.6 mmol/L (3.5-5.1)
[2020-08-21 07:25] LABS: BASOPHILS # (AUTO) 0.1 K/uL (0.0-0.2); BASOPHILS % (AUTO) 1.1 % (0.0-2.0); EOSINOPHILS # (AUTO) 0.5 K/uL (0.0-0.4); EOSINOPHILS % (AUTO) 4.6 % (0.0-4.0); HEMATOCRIT 30.3 % (36-48); LYMPHOCYTES % (AUTO) 18.1 % (20.5-51.5); MEAN CORPUSCULAR HEMOGLOBIN 26 pg (27-31); MEAN CORPUSCULAR HGB CONC 33 % (32-36); MEAN CORPUSCULAR VOLUME 78 fL (79.0-98.0); MONOCYTES # (AUTO) 1.2 K/uL (0.0-1.0); MONOCYTES % (AUTO) 10.8 % (1.7-9.3); NEUTROPHILS # (AUTO) 7.1 K/uL (1.8-7.7); NEUTROPHILS % (AUTO) 65.4 % (40.0-70.0); PLATELET COUNT (AUTO) 396 K/uL (130-430); RED BLOOD CELL COUNT(AUTO) 3.87 MIL/uL (4.2-6.2); RED CELL DISTRIBUTION WIDTH 20.5 % (9.0-15.0); WHITE BLOOD COUNT (AUTO) 10.8 K/uL (4.8-10.8)
[2020-08-21] MEDS ORDERED: METOCLOPRAMIDE HCL 10 MG/2 ML VIAL IVP PRN (08:15)
[2020-08-21] MEDS: FLUCONAZOLE 100 mg/ NS 50 ML IV SCH (08:29)
[2020-08-21] MEDS: PANTOPRAZOLE SODIUM 40 MG/VIAL (PROTONIX) IVP SCH (08:30)
[2020-08-21] MEDS: METOPROLOL TARTRATE 50 MG TABLET PO SCH ×3 (08:30→20:06)
[2020-08-21] MEDS: DOCUSATE SODIUM 100 MG/10 ML UDC NG SCH ×4 (08:30→20:13)
[2020-08-21] MEDS: EPOETIN ALFA 10,000 UNITS/ML VIAL SUBCUT SCH (08:33)
[2020-08-21] MEDS: MINOXIDIL 10 MG TABLET (LONITEN) PO SCH ×2 (08:34→20:08)
[2020-08-21] MEDS ORDERED: INSULIN NPH/REGULAR 70-30, 100 UNITS/ML, 10 ML VIAL SUBCUT SCH (09:00)
[2020-08-21] MEDS ORDERED: DEXTROSE 50%-WATER 50 ML DISP.SYRIN IVP PRN (09:00)
[2020-08-21] MEDS ORDERED: D5W 1,000 ML IV PRN (09:00)
[2020-08-21] MEDS ORDERED: GLUCOSE 15 GM GEL (in 37.5 GM TUBE) PO PRN (09:00)
[2020-08-21] MEDS: INSULIN LISPRO SLIDING SCALE 100 UNITS/ML VIAL (humaLOG) SUBCUT PRN ×2 (12:00→20:03)
[2020-08-21] MEDS: INSULIN NPH/REGULAR 70-30, 100 UNITS/ML, 10 ML VIAL SUBCUT SCH (20:02)
[2020-08-21] MEDS: ATORVASTATIN 10 MG TABLET PO SCH (20:06)
[2020-08-21] MEDS: traZODone HCL 50 MG TABLET (DESYREL) PO SCH (20:08)
[2020-08-21] MEDS: BENZOCAINE/MENTHOL 1 EACH LOZENGE MM PRN (20:09)
[2020-08-21] MEDS: IPRATROPIUM/ALBUTEROL SULFATE 3 ML AMPUL.NEB (DUONEB) INH PRN (22:57)
[2020-08-22 00:34] VITALS: BP_SYST 130
[2020-08-22] MEDS: PIPERACILLIN/TAZO 2.25G/DEX-IS 50 ML IV SCH ×3 (05:47→17:56)
[2020-08-22 06:13] LABS: BASOPHILS # (AUTO) 0.1 K/uL (0.0-0.2); BASOPHILS % (AUTO) 1.5 % (0.0-2.0); EOSINOPHILS # (AUTO) 0.4 K/uL (0.0-0.4); HEMATOCRIT 27.9 % (36-48); HEMOGLOBIN 9.4 g/dL (12.0-16.0); LYMPHOCYTES # (AUTO) 1.9 K/uL (1.0-5.5); LYMPHOCYTES % (AUTO) 19.4 % (20.5-51.5); MEAN CORPUSCULAR HEMOGLOBIN 26 pg (27-31); MEAN CORPUSCULAR HGB CONC 34 % (32-36); MEAN CORPUSCULAR VOLUME 77 fL (79.0-98.0); MONOCYTES # (AUTO) 1.2 K/uL (0.0-1.0); MONOCYTES % (AUTO) 11.5 % (1.7-9.3); NEUTROPHILS # (AUTO) 6.4 K/uL (1.8-7.7); NEUTROPHILS % (AUTO) 63.6 % (40.0-70.0); PLATELET COUNT (AUTO) 381 K/uL (130-430); RED BLOOD CELL COUNT(AUTO) 3.62 MIL/uL (4.2-6.2); RED CELL DISTRIBUTION WIDTH 20.2 % (9.0-15.0)
[2020-08-22 06:45] LABS: CALCIUM 7.6 mg/dL (8.4-11.0); CREATININE 3.61 mg/dL (0.55-1.30)
[2020-08-22 07:02] LABS: POTASSIUM 2.9 mmol/L (3.5-5.1)
[2020-08-22 08:00] VITALS: BP_SYST 144
[2020-08-22] MEDS: DOCUSATE SODIUM 100 MG/10 ML UDC NG SCH ×2 (09:00→21:38)
[2020-08-22] MEDS: PANTOPRAZOLE SODIUM 40 MG/VIAL (PROTONIX) IVP SCH (09:11)
[2020-08-22] MEDS: MINOXIDIL 10 MG TABLET (LONITEN) PO SCH ×2 (09:11→21:42)
[2020-08-22] MEDS: METOPROLOL TARTRATE 50 MG TABLET PO SCH ×3 (09:12→21:39)
[2020-08-22] MEDS: INSULIN NPH/REGULAR 70-30, 100 UNITS/ML, 10 ML VIAL SUBCUT SCH ×2 (09:13→17:58)
[2020-08-22] MEDS: FLUCONAZOLE 100 mg/ NS 50 ML IV SCH (09:14)
[2020-08-22] MEDS ORDERED: POTASSIUM CHLORIDE 10 MEQ TAB.PRT.SR PO ONE ×2 (10:00→10:15)
[2020-08-22 12:18] VITALS: BP_SYST 151
[2020-08-22 13:54] LABS: COCCIDIOIDES AB COMPLEMENT FIX Negative (NEGATIVE)
[2020-08-22 16:20] VITALS: BP_SYST 143
[2020-08-22 20:00] VITALS: BP_SYST 139
[2020-08-22] MEDS: BENZOCAINE/MENTHOL 1 EACH LOZENGE MM PRN (20:24)
[2020-08-22] MEDS: ATORVASTATIN 10 MG TABLET PO SCH (21:39)
[2020-08-22] MEDS: traZODone HCL 50 MG TABLET (DESYREL) PO SCH (21:40)
[2020-08-23 00:17] VITALS: BP_SYST 123
[2020-08-23 06:31] LABS: CALCIUM 7.6 mg/dL (8.4-11.0); CREATININE 5.23 mg/dL (0.55-1.30); POTASSIUM 3.5 mmol/L (3.5-5.1)
[2020-08-23 08:54] VITALS: BP_SYST 139
[2020-08-23] MEDS: MINOXIDIL 10 MG TABLET (LONITEN) PO SCH ×2 (09:00→20:53)
[2020-08-23] MEDS: INSULIN NPH/REGULAR 70-30, 100 UNITS/ML, 10 ML VIAL SUBCUT SCH ×2 (09:15→18:06)
[2020-08-23] MEDS: PANTOPRAZOLE SODIUM 40 MG/VIAL (PROTONIX) IVP SCH (09:20)
[2020-08-23] MEDS: DOCUSATE SODIUM 100 MG/10 ML UDC NG SCH ×2 (09:20→13:38)
[2020-08-23] MEDS: METOPROLOL TARTRATE 50 MG TABLET PO SCH ×3 (09:35→20:54)
[2020-08-23] MEDS ORDERED: HEPARIN SODIUM, PORCINE 10,000 UNITS/ 10 ML VIAL MC ONE ×2 (09:45)
[2020-08-23 12:00] VITALS: BP_SYST 122
[2020-08-23] MEDS: cefTRIAXone 1 GM in D5W 50 ML IV SCH (13:36)
[2020-08-23] MEDS: FLUCONAZOLE 100 mg/ NS 50 ML IV SCH (13:37)
[2020-08-23] MEDS: EPOETIN ALFA 10,000 UNITS/ML VIAL SUBCUT SCH (13:38)
[2020-08-23 16:00] VITALS: BP_SYST 143
[2020-08-23] MEDS: INSULIN LISPRO SLIDING SCALE 100 UNITS/ML VIAL (humaLOG) SUBCUT PRN ×2 (18:07→21:33)
[2020-08-23] MEDS: ATORVASTATIN 10 MG TABLET PO SCH (20:54)
[2020-08-23] MEDS: traZODone HCL 50 MG TABLET (DESYREL) PO SCH (20:54)
[2020-08-23] MEDS: BENZOCAINE/MENTHOL 1 EACH LOZENGE MM PRN (21:10)
[2020-08-24] VITALS: BP_SYST 124
[2020-08-24] MEDS: INSULIN LISPRO SLIDING SCALE 100 UNITS/ML VIAL (humaLOG) SUBCUT PRN ×4 (05:48→21:12)
[2020-08-24 07:03] LABS: CALCIUM 8.1 mg/dL (8.4-11.0); CREATININE 3.97 mg/dL (0.55-1.30); POTASSIUM 3.2 mmol/L (3.5-5.1)
[2020-08-24 07:40] VITALS: BP_SYST 116
[2020-08-24] MEDS: DOCUSATE SODIUM 100 MG/10 ML UDC NG SCH ×2 (08:33→21:10)
[2020-08-24] MEDS: PANTOPRAZOLE SODIUM 40 MG/VIAL (PROTONIX) IVP SCH (08:33)
[2020-08-24] MEDS: cefTRIAXone 1 GM in D5W 50 ML IV SCH (08:34)
[2020-08-24] MEDS: MINOXIDIL 10 MG TABLET (LONITEN) PO SCH ×2 (08:35→21:10)
[2020-08-24] MEDS: METOPROLOL TARTRATE 50 MG TABLET PO SCH ×3 (08:35→21:09)
[2020-08-24] MEDS: INSULIN NPH/REGULAR 70-30, 100 UNITS/ML, 10 ML VIAL SUBCUT SCH ×2 (08:44→17:26)
[2020-08-24] MEDS: FLUCONAZOLE 100 mg/ NS 50 ML IV SCH (09:47)
[2020-08-24 12:00] VITALS: BP_SYST 148
[2020-08-24] MEDS ORDERED: POTASSIUM CHLORIDE 20 MEQ TAB.PRT.SR PO ONE (12:00)
[2020-08-24 13:00] VITALS: BP_SYST 148
[2020-08-24 16:00] VITALS: BP_SYST 137
[2020-08-24 20:00] VITALS: BP_SYST 151
[2020-08-24] MEDS: ATORVASTATIN 10 MG TABLET PO SCH (21:09)
[2020-08-24] MEDS: traZODone HCL 50 MG TABLET (DESYREL) PO SCH (21:10)
[2020-08-24] MEDS: BENZOCAINE/MENTHOL 1 EACH LOZENGE MM PRN (21:24)
[2020-08-25] VITALS: BP_SYST 129
[2020-08-25] MEDS: INSULIN LISPRO SLIDING SCALE 100 UNITS/ML VIAL (humaLOG) SUBCUT PRN ×4 (06:01→20:46)
[2020-08-25 06:59] LABS: CREATININE 5.53 mg/dL (0.55-1.30); POTASSIUM 3.2 mmol/L (3.5-5.1)
[2020-08-25 08:30] VITALS: BP_SYST 114
[2020-08-25] MEDS ORDERED: POTASSIUM CHLORIDE 10 MEQ TAB.PRT.SR PO ONE (08:30)
[2020-08-25] MEDS ORDERED: cloNIDine HCL 0.3 MG/24 HR PATCH.TDWK TD SCH (09:00)
[2020-08-25] MEDS: cefTRIAXone 1 GM in D5W 50 ML IV SCH (09:43)
[2020-08-25] MEDS: FLUCONAZOLE 100 mg/ NS 50 ML IV SCH (09:43)
[2020-08-25] MEDS: DOCUSATE SODIUM 100 MG/10 ML UDC NG SCH ×2 (09:47→20:44)
[2020-08-25] MEDS: PANTOPRAZOLE SODIUM 40 MG/VIAL (PROTONIX) IVP SCH (09:47)
[2020-08-25] MEDS: MINOXIDIL 10 MG TABLET (LONITEN) PO SCH ×2 (09:49→20:43)
[2020-08-25] MEDS: METOPROLOL TARTRATE 50 MG TABLET PO SCH ×3 (09:50→20:42)
[2020-08-25] MEDS: INSULIN NPH/REGULAR 70-30, 100 UNITS/ML, 10 ML VIAL SUBCUT SCH ×2 (09:53→17:12)
[2020-08-25 11:43] VITALS: BP_SYST 137
[2020-08-25 16:11] VITALS: BP_SYST 130
[2020-08-25 20:00] VITALS: BP_SYST 124
[2020-08-25] MEDS: ATORVASTATIN 10 MG TABLET PO SCH (20:43)
[2020-08-25] MEDS: traZODone HCL 50 MG TABLET (DESYREL) PO SCH (20:43)
[2020-08-25] MEDS: BENZOCAINE/MENTHOL 1 EACH LOZENGE MM PRN (22:10)
[2020-08-25 23:29] LABS: BILIRUBIN,URINE NEGATIVE (NEGATIVE); BLOOD, URINE 2+ (NEGATIVE); CLARITY/URINE CLOUDY (CLEAR); COLOR,URINE YELLOW (YELLOW); GLUCOSE,URINE TRACE (NEGATIVE); KETONES,URINE TRACE (NEGATIVE); LEUKOCYTE ESTERASE ,URINE TRACE (NEGATIVE); NITRITE, URINE NEGATIVE (NEGATIVE); PROTEIN URINE 3+ (NEGATIVE); UROBILINOGEN,URINE 0.2 (0.2-1.0)
[2020-08-26 00:01] LABS: BACTERIA,URINE FEW /HPF (None Seen); YEAST,URINE Many /HPF (None Seen)
[2020-08-26 00:30] VITALS: BP_SYST 120
[2020-08-26] MEDS: INSULIN LISPRO SLIDING SCALE 100 UNITS/ML VIAL (humaLOG) SUBCUT PRN ×3 (06:42→17:30)
[2020-08-26 07:15] LABS: CREATININE 6.42 mg/dL (0.55-1.30); POTASSIUM 3.7 mmol/L (3.5-5.1)
[2020-08-26 07:40] VITALS: BP_SYST 129
[2020-08-26 08:05] LABS: BASOPHILS # (AUTO) 0.1 K/uL (0.0-0.2); BASOPHILS % (AUTO) 1.4 % (0.0-2.0); EOSINOPHILS # (AUTO) 0.2 K/uL (0.0-0.4); HEMATOCRIT 29.3 % (36-48); HEMOGLOBIN 9.8 g/dL (12.0-16.0); LYMPHOCYTES # (AUTO) 1.6 K/uL (1.0-5.5); LYMPHOCYTES % (AUTO) 15.9 % (20.5-51.5); MEAN CORPUSCULAR HEMOGLOBIN 26 pg (27-31); MEAN CORPUSCULAR HGB CONC 34 % (32-36); MEAN CORPUSCULAR VOLUME 77 fL (79.0-98.0); MONOCYTES % (AUTO) 10.2 % (1.7-9.3); NEUTROPHILS # (AUTO) 7.1 K/uL (1.8-7.7); NEUTROPHILS % (AUTO) 70.5 % (40.0-70.0); PLATELET COUNT (AUTO) 453 K/uL (130-430); RED BLOOD CELL COUNT(AUTO) 3.81 MIL/uL (4.2-6.2); WHITE BLOOD COUNT (AUTO) 10.1 K/uL (4.8-10.8)
[2020-08-26] MEDS: cefTRIAXone 1 GM in D5W 50 ML IV SCH (08:53)
[2020-08-26] MEDS: PANTOPRAZOLE SODIUM 40 MG/VIAL (PROTONIX) IVP SCH (08:54)
[2020-08-26] MEDS: DOCUSATE SODIUM 100 MG/10 ML UDC NG SCH (08:54)
[2020-08-26] MEDS: INSULIN NPH/REGULAR 70-30, 100 UNITS/ML, 10 ML VIAL SUBCUT SCH ×2 (09:08→17:11)
[2020-08-26 11:25] VITALS: BP_SYST 143
[2020-08-26] MEDS: METOPROLOL TARTRATE 50 MG TABLET PO SCH ×2 (15:00→16:40)
[2020-08-26 15:34] VITALS: BP_SYST 111
[2020-08-26] MEDS: EPOETIN ALFA 10,000 UNITS/ML VIAL SUBCUT SCH (16:38)
[2020-08-26] MEDS: MINOXIDIL 10 MG TABLET (LONITEN) PO SCH (16:41)
[2020-08-26] MEDS: FLUCONAZOLE 100 mg/ NS 50 ML IV SCH (17:15)
[2020-08-26 18:17] VITALS: BP_SYST 111
== END 2020-08-26 19:15 | disposition home or self-care (01) | DRG 871 ==
LOC: SED 02:40 → STU 05:41 → SIC 14:15 → STU 08-21 05:44 → SMU 08-25 16:06
PROVIDERS: ADMIT Internal Medicine; ATTEND Internal Medicine
PROC: 0BC98ZZ Extirpation of Matter from Lingula Bronchus, Via Natural or Artificial Opening Endoscopic (ICD-10-PCS; principal; 2020-08-09)
PROC: 0BC88ZZ Extirpation of Matter from Left Upper Lobe Bronchus, Via Natural or Artificial Opening Endoscopic (ICD-10-PCS; 2020-08-09)
PROC: 0BC78ZZ Extirpation of Matter from Left Main Bronchus, Via Natural or Artificial Opening Endoscopic (ICD-10-PCS; 2020-08-09)
PROC: 0BCB8ZZ Extirpation of Matter from Left Lower Lobe Bronchus, Via Natural or Artificial Opening Endoscopic (ICD-10-PCS; 2020-08-09)
PROC: 0W9B3ZZ Drainage of Left Pleural Cavity, Percutaneous Approach (ICD-10-PCS; 2020-08-09)
PROC: 0BH17EZ Insertion of Endotracheal Airway into Trachea, Via Natural or Artificial Opening (ICD-10-PCS; 2020-08-09)
PROC: 5A1945Z Respiratory Ventilation, 24-96 Consecutive Hours (ICD-10-PCS; 2020-08-09)
PROC: 5A09357 Assistance with Respiratory Ventilation, Less than 24 Consecutive Hours, Continuous Positive Airway Pressure (ICD-10-PCS; 2020-08-09)
PROC: 5A1D70Z Performance of Urinary Filtration, Intermittent, Less than 6 Hours Per Day (ICD-10-PCS; 2020-08-09)
PROC: 30233N1 Transfusion of Nonautologous Red Blood Cells into Peripheral Vein, Percutaneous Approach (ICD-10-PCS; 2020-08-10)
PROC: 02HV33Z Insertion of Infusion Device into Superior Vena Cava, Percutaneous Approach (ICD-10-PCS; 2020-08-10)
PROC: 5A1D70Z Performance of Urinary Filtration, Intermittent, Less than 6 Hours Per Day (ICD-10-PCS; 2020-08-10)
PROC: B548ZZA Ultrasonography of Superior Vena Cava, Guidance (ICD-10-PCS; 2020-08-10)
PROC: 5A1D70Z Performance of Urinary Filtration, Intermittent, Less than 6 Hours Per Day (ICD-10-PCS; 2020-08-11)
PROC: 0W9B3ZZ Drainage of Left Pleural Cavity, Percutaneous Approach (ICD-10-PCS; 2020-08-12)
PROC: 0W9B30Z Drainage of Left Pleural Cavity with Drainage Device, Percutaneous Approach (ICD-10-PCS; 2020-08-13)
PROC: 5A1945Z Respiratory Ventilation, 24-96 Consecutive Hours (ICD-10-PCS; 2020-08-13)
PROC: 5A1D70Z Performance of Urinary Filtration, Intermittent, Less than 6 Hours Per Day (ICD-10-PCS; 2020-08-13)
PROC: 5A1D70Z Performance of Urinary Filtration, Intermittent, Less than 6 Hours Per Day (ICD-10-PCS; 2020-08-14)
PROC: 5A09357 Assistance with Respiratory Ventilation, Less than 24 Consecutive Hours, Continuous Positive Airway Pressure (ICD-10-PCS; 2020-08-16)
PROC: 5A1935Z Respiratory Ventilation, Less than 24 Consecutive Hours (ICD-10-PCS; 2020-08-16)
PROC: 5A1D70Z Performance of Urinary Filtration, Intermittent, Less than 6 Hours Per Day (ICD-10-PCS; 2020-08-16)
PROC: 5A09357 Assistance with Respiratory Ventilation, Less than 24 Consecutive Hours, Continuous Positive Airway Pressure (ICD-10-PCS; 2020-08-18)
PROC: 5A1D70Z Performance of Urinary Filtration, Intermittent, Less than 6 Hours Per Day (ICD-10-PCS; 2020-08-19)
PROC: 5A1D70Z Performance of Urinary Filtration, Intermittent, Less than 6 Hours Per Day (ICD-10-PCS; 2020-08-21)
PROC: 5A1D70Z Performance of Urinary Filtration, Intermittent, Less than 6 Hours Per Day (ICD-10-PCS; 2020-08-23)
PROC: 5A1D70Z Performance of Urinary Filtration, Intermittent, Less than 6 Hours Per Day (ICD-10-PCS; 2020-08-26)
DX: A41.9 Sepsis, unspecified organism (principal); E43 Unspecified severe protein-calorie malnutrition; J15.6 Pneumonia due to other Gram-negative bacteria; J96.21 Acute and chronic respiratory failure with hypoxia; N18.6 End stage renal disease; R65.21 Severe sepsis with septic shock; D84.9 Immunodeficiency, unspecified; E87.1 Hypo-osmolality and hyponatremia; G72.81 Critical illness myopathy; G93.40 Encephalopathy, unspecified; I13.2 Hypertensive heart and chronic kidney disease with heart failure and with stage 5 chronic kidney disease, or end stage renal disease; I42.9 Cardiomyopathy, unspecified; J44.0 Chronic obstructive pulmonary disease with (acute) lower respiratory infection; J98.11 Atelectasis; J94.2 Hemothorax; N04.9 Nephrotic syndrome with unspecified morphologic changes; N17.9 Acute kidney failure, unspecified; J91.8 Pleural effusion in other conditions classified elsewhere; D63.1 Anemia in chronic kidney disease; E11.22 Type 2 diabetes mellitus with diabetic chronic kidney disease; E78.5 Hyperlipidemia, unspecified; F41.9 Anxiety disorder, unspecified; Z20.828 Contact with and (suspected) exposure to other viral communicable diseases; E11.65 Type 2 diabetes mellitus with hyperglycemia; E83.51 Hypocalcemia; E88.09 Other disorders of plasma-protein metabolism, not elsewhere classified; E11.42 Type 2 diabetes mellitus with diabetic polyneuropathy; D50.9 Iron deficiency anemia, unspecified; E87.6 Hypokalemia; E86.1 Hypovolemia; I50.9 Heart failure, unspecified; I95.9 Hypotension, unspecified; Z83.3 Family history of diabetes mellitus; Z86.15 Personal history of latent tuberculosis infection; Z86.74 Personal history of sudden cardiac arrest; Z87.441 Personal history of nephrotic syndrome; Z90.710 Acquired absence of both cervix and uterus; Z98.891 History of uterine scar from previous surgery; Z99.2 Dependence on renal dialysis; Z68.25 Body mass index [BMI] 25.0-25.9, adult
CPT/HCPCS: 32555; 36415; 36430; 36600; 71045; 71250-TC; 71275; 73502; 74018; 76604; 80048; 80053; 81000-TC; 82728; 82803-TC; 82947-TC; 82962; 83605; 83615-TC; 83735-TC; 83880; 84100-TC; 84157-TC; 84484; 85007; 85025; 85027; 85379; 85384-TC; 85610-TC; 85651-TC; 85730-TC; 86140; 86635; 86738; 86886; 86900; 86901; 86920; 87040-TC; 87070-TC; 87081; 87086; 87101; 87116; 87205-TC; 87449; 87556; 88108; 88305; 89051-TC; 89060-TC; 90935; 90937; 93005; 94002; 94003; 94010; 94640; 94660; 94760; 96365; 96367; 97110-GP; 97116-GP; 97163; 97530-GP; 99285; C1729; C1751; C9113; G0378; J0360; J0456; J0696; J0885; J1450; J1644; J1815; J1956; J2001; J2060; J2185; J2248; J2270; J2543; J2704; J2765; J3370; J3465; J3480; J3490; J7030; J7050; J7060; J7608; P9021; P9046; Q9967; U0003

== ENCOUNTER 2020-09-03 13:00 | Outpatient (CLI) | payer OTHER ==
[~2020-09-03 13:00] MED LIST changes: +ASPI-1393 PO; +ATOR10TA68 PO; -CAT.1 PO; +DOCU-144 PO; +METO50TA16 PO; +METO5TAB86 PO; +MINO2.5T PO; +PRO40 PO; +TRAZ-250 PO; -[UNRECOGNIZED DRUG - OTHER] SQ
== END 2020-09-04 19:59 | disposition home or self-care (01) ==
LOC: SRD 13:00
PROVIDERS: ATTEND Internal Medicine
DX: R06.02 Shortness of breath (principal); J90 Pleural effusion, not elsewhere classified
CPT/HCPCS: 71046-TC

== ENCOUNTER 2020-09-16 12:02 | Outpatient (CLI) | payer OTHER | END 2020-09-16 20:17 | disposition home or self-care (01) | LOC: SDS 12:02 | DX: J90 Pleural effusion, not elsewhere classified (principal) | CPT/HCPCS: 71046-TC ==